=== PATIENT | male | born 1960 | race Caucasian/White ===

== ENCOUNTER 2021-02-10 15:41 | Inpatient (IN) | payer MEDICAID, SELFPAY ==
[~2021-02-10] VITALS: Ht 170.2 cm; Wt 56.7 kg
[2021-02-10 16:06] VITALS: BP 116/63
--- NOTE | 2021-02-10 16:30 | NUR ---
60 Y/O MALE BIB BY [facility]. C/O BILATERAL EDEMA WITH PAIN, REDNESS, AND WEEPING (11/06). PT STATES IT HAS BEEN GOING ON FOR 2 WEEKS. PT IS WEAK AND UNABLE TO AMBULATE, PT STATES HE NORMALLY HAS A LOW APETITE. PT STOOD/PIVOT FROM WHEELCHAIR TO BED ASSISTED BY RN AND [facility]. PT IS LAYING IN BED WITH THE RAILS UP X1, BED IN LOWEST SETTING. PT IS ACCOMPANIED BY [facility]. HX: HTN NKDA NON COMPLIANT WITH MEDS DUE TO INSURANCE ISSUES.
[2021-02-10] MEDS ORDERED: ALBUTEROL HFA MDI 90 MCG/ACTUATION 8 GM INH ONE (17:00)
--- NOTE | 2021-02-10 17:10 | NUR ---
LABS AND US AT BEDSIDE
--- NOTE | 2021-02-10 17:28 | NUR ---
XRAY BEDSIDE WITH PATIENT
--- NOTE | 2021-02-10 17:30 | NUR ---
RADIOLOGY AT BEDSIDE
[2021-02-10 17:32] LABS: BASOPHILS # (AUTO) 0.1 K/uL (0.00-0.22); BASOPHILS % (AUTO) 0.7 % (0.0-2.0); EOSINOPHILS % (AUTO) 0.2 % (0.0-4.0); HEMATOCRIT 26.4 % (36-52); HEMOGLOBIN 9.2 g/dL (12.0-18.0); LYMPHOCYTES # (AUTO) 1.6 K/uL (2.0-11.5); LYMPHOCYTES % (AUTO) 17.3 % (20.5-51.1); MEAN CORPUSCULAR HEMOGLOBIN 37 pg (27-31); MEAN CORPUSCULAR HGB CONC 35 g/dL (33-37); MEAN CORPUSCULAR VOLUME 106.7 fL (80-94); MONOCYTES % (AUTO) 10.7 % (1.7-9.3); NEUTROPHILS # (AUTO) 6.5 K/uL (1.8-7.7); NEUTROPHILS % (AUTO) 71.1 % (42.2-75.2); PLATELET COUNT (AUTO) 209 K/uL (140-450); RED BLOOD CELL COUNT(AUTO) 2.48 MIL/uL (4.20-6.10); RED CELL DISTRIBUTION WIDTH 18.3 % (11.6-13.7); WHITE BLOOD COUNT (AUTO) 9.1 K/uL (4.8-10.8)
[2021-02-10 17:41] LABS: ANION GAP 8.9 (8-16); CARBON DIOXIDE 30.3 mmol/L (21-32); CREATININE 0.5 mg/dL (0.6-1.3); POTASSIUM 5.2 mmol/L (3.5-5.1)
--- NOTE | 2021-02-10 17:55 | NUR ---
COLLECTED BONNIE COVID-19 SWAB AND WALKED TO LAB
--- NOTE | 2021-02-10 18:32 | NUR ---
PT ADMITTED UNDER DR. GARCIA. PT MED-SURG HOLD IN ED BED 11
--- NOTE | 2021-02-10 18:50 | NUR ---
BELONGINGS LIST AND MED REC COMPLETED FOR PATIENT ADMIT
--- NOTE | 2021-02-10 19:19 | NUR ---
Patient appears to be resting comfortably in bed. Vital Signs within normal limits. Respirations even and unlabored.
--- NOTE | 2021-02-10 19:19 | NUR ---
Pt report given to MAGALI. Transfer of care at this time.
--- NOTE | 2021-02-10 19:30 | NUR ---
AMBULATED PT TO RESTROOM. PT HAD A BM
--- NOTE | 2021-02-10 19:54 | NUR ---
CALLED DR. GARCIA ABOUT PRN PAIN MEDICATION. PT STATED 10/06 PAIN
[2021-02-10] MEDS: HYDROcodone/APAP 5/325 MG 1 TAB TAB PO PRN (21:07)
--- NOTE | 2021-02-10 21:16 | NUR ---
PT UNABLE TO URINATE AT THIS TIME. LEFT URINAL AT BEDSIDE
--- NOTE | 2021-02-10 21:21 | NUR ---
Pt report given to MILA. Transfer of care at this time.
--- NOTE | 2021-02-10 21:43 | NUR ---
Patient will be admitted to care of DR. GARCIA. Admited to MED SURG. Will go to room 106b. Belongings list completed. Report to
--- NOTE | 2021-02-10 22:05 | NUR ---
RECEIVED REPORT FROM ER NURSE.PT ARRIVED IN UNIT VIA GURNEY. PT AWAKE, ALERT AND ORIENTED. PT'S VS ARE STABLE, AFEBRILE, ON ROOM AIR WITH NO S/SX OF DISTRESS. PT WITH IV ON LEFT AC GAUGE 20.BLISTER ON BILATERAL LOWER EXTREMITY NOTED.PT REFUSED TO HAVE IT CLEANED AND WANTED IT TO BE LEFT OPEN TO AIR.PT ORIENTED WITH THE ROOM AND CALL LIGHT. BED IS ON LOW POSITION AND BREAKS ARE ON. ALL PRECAUTIONS IN PLACE.CALL LIGHT WITHIN REACH. WILL CONTINUE TO MONITOR.
[2021-02-10] MEDS ORDERED: CLINDAMYCIN 600 MG/4 ML VIAL ONE (23:29)
[2021-02-10] MEDS ORDERED: MORPHINE SULFATE 2 MG/ML SYR IVP PRN (23:50)
[2021-02-10] MEDS ORDERED: DOCUSATE SODIUM 100 MG GELCAP PO PRN (23:50)
[2021-02-10] MEDS ORDERED: NACL 0.9% 1,000 ML IV SCH (23:50)
[2021-02-10] MEDS ORDERED: ACETAMINOPHEN 325 MG TAB PO PRN (23:50)
[2021-02-10] MEDS ORDERED: LORazepam 2 MG/ML VIAL IM/IVP PRN (23:50)
[2021-02-10] MEDS ORDERED: ONDANSETRON 4 MG/2 ML VIAL IM/IVP PRN (23:50)
[2021-02-10] MEDS ORDERED: ZOLPIDEM 5 MG TAB PO PRN (23:50)
[2021-02-10] MEDS ORDERED: MAG SULF 2000 MG/WATER PREMIX 50 ML IV PRN (23:55)
[2021-02-10] MEDS ORDERED: POTASSIUM CHLORIDE 10 MEQ TABER PO PRN (23:55)
[2021-02-11] VITALS: BP 119/71
[2021-02-11] MEDS: CLINDAMYCIN 300 MG in DEXTROSE 5% 50 ML IV SCH ×2 (00:01→05:52)
--- NOTE | 2021-02-11 00:05 | NUR ---
ANTIBIOTICS GIVEN ORDERED. PT TOLERATED WELL.NO ACUTE DRUG REACTION NOTED. NO SX/ SX OF DISTRESS NOTED.CALL LIGHT WITHIN REACH. ALL PRECAUTIONS IN PLACE. WILL CONTINUE TO MONITOR
[2021-02-11 00:31] LABS: MAGNESIUM 2.4 mg/dL (1.8-2.4); PHOSPHORUS 4.1 mg/dL (2.5-4.9)
[2021-02-11 00:32] LABS: BILIRUBIN,DIRECT 2.4 mg/dL (0.0-0.3)
[2021-02-11 01:15] LABS: PROTHROMBIN TIME 9.4 secs (10.8-13.4)
[2021-02-11 02:11] LABS: APPEARANCE,URINE CLEAR (CLEAR); BILIRUBIN,URINE 1+ (NEGATIVE); BLOOD, URINE NEGATIVE (NEGATIVE); COLOR,URINE DARK YELLOW (YELLOW); LEUKOCYTE ESTERASE ,URINE NEGATIVE (NEGATIVE); NITRITE, URINE NEGATIVE (NEGATIVE); PH,URINE 6.5 (5.0-9.0); UGLUCOSE NEGATIVE (NEGATIVE)
[2021-02-11] MEDS: HYDROcodone/APAP 5/325 MG 1 TAB TAB PO PRN (02:11)
--- NOTE | 2021-02-11 02:15 | NUR ---
PT COMPLAINED OF PAIN ON HIS BILATERAL LOWER EXTREMITIES. PRN PAIN MEDICATION GIVEN.ALL PRECAUTIONS IN PLACE. PT TOLERATED WELL. WILL CONTINUE TO MONITOR.
[2021-02-11 02:38] LABS: BARBITURATE, URINE NEGATIVE ng/ml (NEG <=200); BENZODIAZEPINE, URINE NEGATIVE ng/mL (NEG <=200); CANNABINOID, URINE NEGATIVE ng/mL (NEG <=50); COCAINE, URINE NEGATIVE ng/mL (NEG <=300); OPIATE, URINE POSITIVE ng/mL (NEG <=2000); PHENCYCLIDINE SCREEN,URINE NEGATIVE ng/mL (NEG <=25)
[2021-02-11 04:00] VITALS: BP 116/58
[2021-02-11] MEDS ORDERED: CLINDAMYCIN 600 MG/4 ML VIAL ONE (05:28)
--- NOTE | 2021-02-11 06:00 | NUR ---
SCHEDULED ANTIBIOTICS GIVEN. PT TOLERATED WELL. ALL PRECAUTIONS IN PLACE. WILL CONTINUE TO MONITOR.
[2021-02-11 06:30] LABS: BASOPHILS # (AUTO) 0.1 K/uL (0.00-0.22); BASOPHILS % (AUTO) 0.7 % (0.0-2.0); EOSINOPHILS % (AUTO) 0.1 % (0.0-4.0); HEMATOCRIT 26.1 % (36-52); LYMPHOCYTES # (AUTO) 1.2 K/uL (2.0-11.5); LYMPHOCYTES % (AUTO) 11.4 % (20.5-51.1); MEAN CORPUSCULAR HEMOGLOBIN 37 pg (27-31); MEAN CORPUSCULAR HGB CONC 35 g/dL (33-37); MEAN CORPUSCULAR VOLUME 107.5 fL (80-94); MONOCYTES # (AUTO) 0.9 K/uL (0.8-1.0); MONOCYTES % (AUTO) 8.8 % (1.7-9.3); NEUTROPHILS # (AUTO) 8.4 K/uL (1.8-7.7); PLATELET COUNT (AUTO) 208 K/uL (140-450); RED BLOOD CELL COUNT(AUTO) 2.43 MIL/uL (4.20-6.10); RED CELL DISTRIBUTION WIDTH 17.9 % (11.6-13.7); WHITE BLOOD COUNT (AUTO) 10.6 K/uL (4.8-10.8)
[2021-02-11 06:46] LABS: ANION GAP 8.2 (8-16); CARBON DIOXIDE 30.4 mmol/L (21-32); CREATININE 0.6 mg/dL (0.6-1.3); POTASSIUM 4.6 mmol/L (3.5-5.1)
[2021-02-11 06:49] LABS: CHOL/HDL RATIO 3.1 (1-4.5)
[2021-02-11 07:00] LABS: MAGNESIUM 2.2 mg/dL (1.8-2.4); PHOSPHORUS 3.8 mg/dL (2.5-4.9)
--- NOTE | 2021-02-11 07:01 | NUR ---
PT STABLE.NO ACUTE EVENTS THROUGHOUT THE NIGHT.ALL NEEDS ATTENDED.NO OTHER COMPLAINS AT THIS TIME. CALL LIGHT WITHIN REACH. ALL SAFETY PRECAUTIONS IN PLACE.WILL CONTINUE TO MONITOR.WILL ENDORSE TO AM SHIFT NURSE.
--- NOTE | 2021-02-11 07:30 | NUR ---
RECEIVED REPORT FROM NIGHT NURSE FOR CONTINUITY OF CARE. PATIENT IS AWAKE, NO DISTRESS NOTED. BREATHING IS EVEN AND UNLABORED. DENIES PAIN. SHAREE PICC LINE INTACT. ON MEDSURG. RESTING IN BED. CALL LIGHT WITHIN REACH. PT IS STABLE.
--- NOTE | 2021-02-11 07:39 | NUR ---
PT ENDORSED TO AM SHIFT NURSE FOR CONTINUITY OF CARE. PT IS STABLE.
--- NOTE | 2021-02-11 08:33 | NUR ---
PATIENT HAS BEEN SCREENED AND CATEGORIZED HIGH NUTRITION RISK. PATIENT WILL BE SEEN WITHIN 1-2 DAYS OF ADMISSION. 02/11/21-02/12/21 CONSULT RECEIVED FOR WOUNDS AND PRESSURE INJURY LISANDRO GALINDO RD
[2021-02-11] MEDS ORDERED: FUROSEMIDE 40 MG/4 ML VIAL IVP ONE (09:00)
--- NOTE | 2021-02-11 09:00 | NUR ---
PT IS COMPLAINING OF HUNGER. EXPLAINED HE CAN EAT AFTER CT CHEST ANGIOGRAPHY. EXPLAINED TO FAMILY MEMBERS THE SITUATION AND ANSWERED ALL THEIR QUESTIONS.
--- NOTE | 2021-02-11 10:15 | NUR ---
PT IS COMPLAINING OF HUNGER AGAIN.. EXPLAINED HE CAN EAT AFTER CT CHEST ANGIOGRAPHY. EXPLAINED TO FAMILY MEMBERS THE SITUATION AND ANSWERED ALL THEIR QUESTIONS AGAIN.
--- NOTE | 2021-02-11 11:00 | NUR ---
PT WAS PICKED UP TO GET CT CHEST ANGIOGRAPHY. PT IS STABLE. CONSENTS SIGNED.
--- NOTE | 2021-02-11 11:30 | NUR ---
PT RETURNED FROM CT CHEST ANGIOGRAPHY. PT VS ARE WNL. PT IS STABLE. BROUGHT FOOD LOW SODIUM TO PT TO EAT.
--- NOTE | 2021-02-11 11:50 | NUR ---
WOUND CARE EVALUATION NOTE: WOUND ASSESSMENT DONE ON THIS 60 Y/O PT. AAX4, PT ADMITTED WITH BLE CELLULITIS. PER PT. UN-KNOW MEDICAL HX. BLE WITH ERYTHEMA, SWOLLEN JOINTS, +3 EDEMA, WEEPING SKIN WITH MULTIPLE BLISTERING SKIN AND MULTIPLE PARTIAL THICKNESS SKIN LOSS,SUPERFICIAL DEPTH. LEFT LOWER LEG LARGEST SUPERFICIAL WOUND FROM OPEN BLISTERING SKIN 4X5CM AND RIGHT LOWER LEG 3X2CM, WOUND BEDS ARE PINK AND MOIST, NO ODOR, KATHRYN WOUND SKIN ERYTHEMA AND INTACT BLISTERING SKIN WHICH INDICATED FURTHER DAMAGE, MAY BECOME OPEN WOUNDS IF EDEMA/SWELLING NOT IMPROVING. THICKENED NAILS X 10 TOES. BLE SENSITIVE TO TOUCH, NO PAIN PER PT. 0/10. POC DISCUSSED WITH PT. WOUND CARE INSTRUCTIONS EXPLAIN AND INSTRUCTS PT. TO ELEVATED BLE TO REDUCE EDEMA/SWELLING, PT. VERBALIZES UNDERSTANDING. PER PT. HE LIKES TO BE IN SITTING POSITION. POC DISCUSSED WITH PRIMARY RN.CONTINUE WOUND CARE TEACHING WITH PT. AND FAMILY RECOMMENDATIONS: -CLEANSE BLE WOUND WITH NS, PAT DRY, APPLY XEROFORM DRESSING COVER WITH ABD PAD AND WRAP WITH KERLIX ROLL 3X/WEEK DRESSING CHANGE ON MWF. -PLEASE ELEVATE BLE WITH 2-3 PILLOWS WHEN IN CHAIR / IN BED -ASSESS AND MONITOR SKIN CONDITION DURING POSITION CHANGE -OFFLOAD BILATERAL HEELS BY PLACING PILLOWS UNDER CALVES AT ALL TIMES, UNLESS OTHERWISE CONTRAINDICATED -KEEP SKIN CLEAN AND DRY AT ALL TIMES.
--- NOTE | 2021-02-11 12:00 | NUR ---
PT STATES HE IS LEAVING AND HAS THINGS TO DO. I EXPLAINED THE IMPORTANCE OF STAYING AND THAT MD NEEDS TO CLEAR HIM FIRST.. PT SAYS HE WILL LEAVE AGAINST MEDICAL ADVICE. PT IS STABLE.
--- NOTE | 2021-02-11 12:15 | NUR ---
PT IS WALKING OUT OF UNIT AND OUT OF HOSPITAL AGAINST MEDICAL ADVICE. CALLED AND EXPLAINED TO FAMILY ABOUT SITUATION. ANSWERED ALL THEIR QUESTIONS AND EXPLAINED THE IMPORTANCE OF PT STAYING. PT IS AMA. MD IS NOTIFIED. WILL FILL OUT AMA REPORT.
[2021-02-12 09:06] LABS: T4 (THYROXINE) 5.4 ug/dL (4.5-12.0)
[2021-02-13] MEDS ORDERED: NON ADHERENT DRESSING TP SCH (13:00)
== END 2021-02-11 12:15 | disposition left against medical advice (07) | DRG 383 ==
LOC: MED 15:41 → MTU 18:32
DX: L03.116 Cellulitis of left lower limb (principal); E43 Unspecified severe protein-calorie malnutrition; D68.59 Other primary thrombophilia; E87.1 Hypo-osmolality and hyponatremia; E86.0 Dehydration; D53.9 Nutritional anemia, unspecified; J44.9 Chronic obstructive pulmonary disease, unspecified; R74.01 Elevation of levels of liver transaminase levels; E87.5 Hyperkalemia; Z20.822 Contact with and (suspected) exposure to COVID-19; Z68.1 Body mass index [BMI] 19.9 or less, adult; Z53.29 Procedure and treatment not carried out because of patient's decision for other reasons
CPT/HCPCS: 36415; 71045; 71275; 80048; 80053; 80076; 80305; 81003; 83036; 83690; 83735; 83880; 84100; 84134; 84436; 84443; 85025; 85379; 85610; 85651; 85730; 86140; 87081; 93970; 94664; 99285; J1644; J2270; J3490; J7060; Q0092; Q9967

== ENCOUNTER 2021-02-21 19:04 | Inpatient (IN) | payer MEDICAID, SELFPAY ==
[~2021-02-21] VITALS: Ht 170.2 cm; Wt 52.6 kg
[2021-02-21 19:25] VITALS: BP 145/87
[2021-02-21 20:25] LABS: BASOPHILS # (AUTO) 0.1 K/uL (0.00-0.22); BASOPHILS % (AUTO) 0.6 % (0.0-2.0); EOSINOPHILS # (AUTO) 0.1 K/uL (0-0.4); EOSINOPHILS % (AUTO) 0.4 % (0.0-4.0); HEMATOCRIT 36.6 % (36-52); HEMOGLOBIN 12.8 g/dL (12.0-18.0); LYMPHOCYTES # (AUTO) 1.7 K/uL (2.0-11.5); LYMPHOCYTES % (AUTO) 11.4 % (20.5-51.1); MEAN CORPUSCULAR HEMOGLOBIN 35 pg (27-31); MEAN CORPUSCULAR HGB CONC 35 g/dL (33-37); MEAN CORPUSCULAR VOLUME 98.7 fL (80-94); MONOCYTES % (AUTO) 6.7 % (1.7-9.3); NEUTROPHILS # (AUTO) 12.4 K/uL (1.8-7.7); NEUTROPHILS % (AUTO) 80.9 % (42.2-75.2); PLATELET COUNT (AUTO) 271 K/uL (140-450); RED CELL DISTRIBUTION WIDTH 15.7 % (11.6-13.7); WHITE BLOOD COUNT (AUTO) 15.3 K/uL (4.8-10.8)
[2021-02-21 20:47] LABS: ALBUMIN 2.4 g/dL (3.4-5.0); ANION GAP 12.2 (8-16); CARBON DIOXIDE 24.3 mmol/L (21-32); CREATININE 0.6 mg/dL (0.6-1.3); POTASSIUM 5.5 mmol/L (3.5-5.1); TOTAL BILIRUBIN 1.9 mg/dL (0.0-1.0)
[2021-02-21] MEDS ORDERED: VANCOMYCIN 1,000 MG in DEXTROSE 5% 250 ML IV ONE (21:10)
[2021-02-21] MEDS ORDERED: PIPERACILLIN/TAZOBACTAM 4.5 GM in DEXTROSE 5% 100 ML IV ONE (21:10)
[2021-02-21] MEDS ORDERED: HYDROcodone/APAP 7.5/325 MG 1 TAB PO PRN ×2 (21:15→21:30)
[2021-02-21] MEDS ORDERED: ONDANSETRON 4 MG/2 ML VIAL IM/IVP PRN ×3 (21:15→22:05)
[2021-02-21] MEDS ORDERED: DOCUSATE SODIUM 100 MG GELCAP PO PRN ×3 (21:15→22:05)
[2021-02-21] MEDS ORDERED: ACETAMINOPHEN 325 MG TAB PO PRN ×2 (21:15→21:30)
[2021-02-21] MEDS ORDERED: NACL 0.9% 1,000 ML IV SCH ×4 (21:15→22:05)
[2021-02-21] MEDS ORDERED: guaiFENesin DM 200/20 MG-10 ML 10 ML UDC PO PRN ×2 (21:15→21:30)
[2021-02-21] MEDS ORDERED: ZOLPIDEM 5 MG TAB PO PRN ×2 (21:15→21:30)
[2021-02-21] MEDS ORDERED: POTASSIUM CHLORIDE 10 MEQ TABER PO PRN (21:15)
[2021-02-21] MEDS ORDERED: VANCOMYCIN 1,000 MG VIAL ONE (21:40)
[2021-02-21] MEDS ORDERED: PIPERACILLIN/TAZOBACTAM 4.5 GM VIAL IV ONE (21:42)
[2021-02-21] MEDS ORDERED: SODIUM CHLORIDE 1 GM TAB PO SCH (22:05)
[2021-02-21 22:34] LABS: PROTHROMBIN TIME 9.1 secs (10.8-13.4)
[2021-02-21 22:43] LABS: CHOL/HDL RATIO 2.5 (1-4.5); FREE T4 (FREE THYROXINE) 1.22 ng/dL (0.76-1.46); PHOSPHORUS 3.6 mg/dL (2.5-4.9); THYROID STIMULATING HORMONE 2.5 uIU/mL (0.34-3.74)
[2021-02-21] MEDS: NACL 0.9% 1,000 ML IV SCH (22:50)
[2021-02-22] VITALS: BP 168/86
[2021-02-22 04:00] VITALS: BP 178/88
[2021-02-22] MEDS ORDERED: PIPERACILLIN/TAZOBACTAM 3.375 GM VIAL IV ONE (05:23)
[2021-02-22] MEDS: PIPERACILLIN/TAZOBACTAM 3.375 GM in DEXTROSE 5% 50 ML IV SCH ×5 (05:46→18:06)
[2021-02-22] MEDS: NACL 0.9% 1,000 ML IV SCH ×3 (05:46→22:50)
[2021-02-22 06:40] LABS: BASOPHILS # (AUTO) 0.1 K/uL (0.00-0.22); BASOPHILS % (AUTO) 0.4 % (0.0-2.0); EOSINOPHILS % (AUTO) 0.1 % (0.0-4.0); HEMATOCRIT 37.3 % (36-52); LYMPHOCYTES # (AUTO) 1.2 K/uL (2.0-11.5); MEAN CORPUSCULAR HEMOGLOBIN 35 pg (27-31); MEAN CORPUSCULAR HGB CONC 35 g/dL (33-37); MEAN CORPUSCULAR VOLUME 100.3 fL (80-94); MONOCYTES # (AUTO) 1.3 K/uL (0.8-1.0); MONOCYTES % (AUTO) 7.5 % (1.7-9.3); NEUTROPHILS # (AUTO) 15.1 K/uL (1.8-7.7); PLATELET COUNT (AUTO) 229 K/uL (140-450); RED BLOOD CELL COUNT(AUTO) 3.72 MIL/uL (4.20-6.10); RED CELL DISTRIBUTION WIDTH 15.7 % (11.6-13.7); WHITE BLOOD COUNT (AUTO) 17.7 K/uL (4.8-10.8)
[2021-02-22 07:11] LABS: ANION GAP 13.6 (8-16); CARBON DIOXIDE 24.1 mmol/L (21-32); CREATININE 0.7 mg/dL (0.6-1.3)
[2021-02-22 07:20] LABS: POTASSIUM 6.7 mmol/L (3.5-5.1)
[2021-02-22 08:00] VITALS: BP 127/61
[2021-02-22] MEDS: PANTOPRAZOLE 40 MG TABEC PO SCH (08:29)
[2021-02-22] MEDS ORDERED: PANTOPRAZOLE 40 MG TABEC PO SCH (09:00)
[2021-02-22] MEDS ORDERED: CALCIUM GLUCONATE 10% 1,000 MG in NACL 0.9% 50 ML IV SCH (10:00)
[2021-02-22 12:00] VITALS: BP 167/82
[2021-02-22] MEDS: CLINDAMYCIN 600 MG in DEXTROSE 5% 50 ML IV SCH ×2 (12:36→18:06)
[2021-02-22] MEDS: SODIUM ZIRCONIUM CYCLOSILICATE 10 GM POWD.PACK PO SCH (15:39)
[2021-02-22 16:00] VITALS: BP 137/75
[2021-02-22 17:00] LABS: ANION GAP 8.3 (8-16); CARBON DIOXIDE 26.1 mmol/L (21-32); CREATININE 0.5 mg/dL (0.6-1.3); POTASSIUM 4.4 mmol/L (3.5-5.1)
[2021-02-22 20:00] VITALS: BP 141/70
[2021-02-23] VITALS: BP 122/74
[2021-02-23 04:00] VITALS: BP 139/74
[2021-02-23] MEDS: PIPERACILLIN/TAZOBACTAM 3.375 GM in DEXTROSE 5% 50 ML IV SCH ×5 (06:00→18:00)
[2021-02-23] MEDS: NACL 0.9% 1,000 ML IV SCH ×3 (06:50→22:50)
[2021-02-23 07:07] LABS: T3 UPTAKE 30 % (24-39)
[2021-02-23 08:00] VITALS: BP 125/80
[2021-02-23] MEDS: PANTOPRAZOLE 40 MG TABEC PO SCH (09:00)
[2021-02-23] MEDS: SODIUM ZIRCONIUM CYCLOSILICATE 10 GM POWD.PACK PO SCH (15:39)
[2021-02-23] MEDS ORDERED: LORazepam 2 MG/ML VIAL IVP PRN (15:55)
[2021-02-23 20:00] VITALS: BP 102/59
[2021-02-23] MEDS: LORazepam 1 MG TAB PO SCH (22:16)
[2021-02-24] VITALS: BP 139/77
[2021-02-24] MEDS: LORazepam 1 MG TAB PO SCH ×3 (05:21→20:45)
[2021-02-24] MEDS: PIPERACILLIN/TAZOBACTAM 3.375 GM in DEXTROSE 5% 50 ML IV SCH ×6 (05:37→18:12)
[2021-02-24] MEDS: NACL 0.9% 1,000 ML IV SCH ×2 (06:50→17:49)
[2021-02-24 08:00] VITALS: BP 144/77
[2021-02-24] MEDS: FOLIC ACID 1 MG TAB PO SCH (08:54)
[2021-02-24] MEDS: MULTIVITAMIN 1 TAB PO SCH (08:54)
[2021-02-24] MEDS: PANTOPRAZOLE 40 MG TABEC PO SCH (08:54)
[2021-02-24] MEDS: THIAMINE 100 MG TAB PO SCH (08:54)
[2021-02-24] MEDS: SODIUM CHLORIDE 1 GM TAB PO SCH ×2 (09:00→20:45)
[2021-02-24] MEDS: FUROSEMIDE 20 MG TAB PO SCH (09:00)
[2021-02-24 12:00] VITALS: BP 136/73
[2021-02-24] MEDS ORDERED: PANT40EC56 PO (12:56)
[2021-02-24] MEDS ORDERED: FOLI1TAB90 PO (12:56)
[2021-02-24] MEDS ORDERED: THIA-34 PO (12:56)
[2021-02-24] MEDS ORDERED: MULT-405 PO (12:56)
[2021-02-24] MEDS ORDERED: FURO20TA8 PO (12:56)
[2021-02-24 14:44] LABS: BASOPHILS # (AUTO) 0.2 K/uL (0.00-0.22); BASOPHILS % (AUTO) 1.2 % (0.0-2.0); EOSINOPHILS % (AUTO) 0.1 % (0.0-4.0); HEMATOCRIT 33.7 % (36-52); HEMOGLOBIN 11.6 g/dL (12.0-18.0); LYMPHOCYTES # (AUTO) 1.1 K/uL (2.0-11.5); LYMPHOCYTES % (AUTO) 6.9 % (20.5-51.1); MEAN CORPUSCULAR HEMOGLOBIN 35 pg (27-31); MEAN CORPUSCULAR HGB CONC 35 g/dL (33-37); MEAN CORPUSCULAR VOLUME 100.6 fL (80-94); MONOCYTES # (AUTO) 1.5 K/uL (0.8-1.0); MONOCYTES % (AUTO) 9.5 % (1.7-9.3); NEUTROPHILS % (AUTO) 82.3 % (42.2-75.2); PLATELET COUNT (AUTO) 266 K/uL (140-450); RED BLOOD CELL COUNT(AUTO) 3.35 MIL/uL (4.20-6.10); RED CELL DISTRIBUTION WIDTH 15.2 % (11.6-13.7); WHITE BLOOD COUNT (AUTO) 15.8 K/uL (4.8-10.8)
[2021-02-24 15:12] LABS: ANION GAP 6.5 (8-16); CARBON DIOXIDE 27.9 mmol/L (21-32); CREATININE 0.5 mg/dL (0.6-1.3); POTASSIUM 4.4 mmol/L (3.5-5.1)
[2021-02-24] MEDS: SODIUM ZIRCONIUM CYCLOSILICATE 10 GM POWD.PACK PO SCH (15:39)
[2021-02-24 16:00] VITALS: BP 95/56
[2021-02-24 20:00] VITALS: BP 91/51
[2021-02-25] VITALS: BP 137/33
[2021-02-25] MEDS: PIPERACILLIN/TAZOBACTAM 3.375 GM in DEXTROSE 5% 50 ML IV SCH ×4 (00:49→18:21)
[2021-02-25] MEDS: NACL 0.9% 1,000 ML IV SCH ×3 (01:00→10:25)
[2021-02-25 04:00] VITALS: BP 146/54
[2021-02-25] MEDS: LORazepam 1 MG TAB PO SCH ×3 (05:00→21:00)
[2021-02-25 06:21] LABS: BASOPHILS # (AUTO) 0.2 K/uL (0.00-0.22); BASOPHILS % (AUTO) 1.2 % (0.0-2.0); EOSINOPHILS % (AUTO) 0.2 % (0.0-4.0); HEMATOCRIT 34.2 % (36-52); HEMOGLOBIN 11.6 g/dL (12.0-18.0); LYMPHOCYTES # (AUTO) 1.3 K/uL (2.0-11.5); LYMPHOCYTES % (AUTO) 9.8 % (20.5-51.1); MEAN CORPUSCULAR HEMOGLOBIN 34 pg (27-31); MEAN CORPUSCULAR HGB CONC 34 g/dL (33-37); MEAN CORPUSCULAR VOLUME 100.9 fL (80-94); MONOCYTES # (AUTO) 1.3 K/uL (0.8-1.0); MONOCYTES % (AUTO) 9.7 % (1.7-9.3); NEUTROPHILS # (AUTO) 10.2 K/uL (1.8-7.7); NEUTROPHILS % (AUTO) 79.1 % (42.2-75.2); PLATELET COUNT (AUTO) 287 K/uL (140-450); RED BLOOD CELL COUNT(AUTO) 3.39 MIL/uL (4.20-6.10); RED CELL DISTRIBUTION WIDTH 15.2 % (11.6-13.7); WHITE BLOOD COUNT (AUTO) 12.9 K/uL (4.8-10.8)
[2021-02-25 06:22] LABS: CARBON DIOXIDE 28.6 mmol/L (21-32); CREATININE 0.5 mg/dL (0.6-1.3); POTASSIUM 3.6 mmol/L (3.5-5.1)
[2021-02-25 08:00] VITALS: BP 145/78
[2021-02-25] MEDS: FOLIC ACID 1 MG TAB PO SCH (08:03)
[2021-02-25] MEDS: FUROSEMIDE 20 MG TAB PO SCH (08:04)
[2021-02-25] MEDS: PANTOPRAZOLE 40 MG TABEC PO SCH (08:04)
[2021-02-25] MEDS ORDERED: BUPIVACAINE-MPF/EPI 0.5% 30 ML VIAL INJ ONE (08:25)
[2021-02-25] MEDS ORDERED: LIDOCAINE 1% 500 MG/50 ML VIAL ONE (08:25)
[2021-02-25] MEDS: SODIUM CHLORIDE 1 GM TAB PO SCH ×2 (08:56→21:00)
[2021-02-25] MEDS: MULTIVITAMIN 1 TAB PO SCH (08:57)
[2021-02-25] MEDS: THIAMINE 100 MG TAB PO SCH (08:57)
[2021-02-25] MEDS ORDERED: PROPOFOL 200 MG/20 ML VIAL IV ONE (19:10)
[2021-02-25 20:00] VITALS: BP 139/74
[2021-02-25] MEDS ORDERED: ONDANSETRON 4 MG/2 ML VIAL IVP PRN (20:10)
[2021-02-25] MEDS ORDERED: HYDROmorphone 1 MG/ML AMP IVP PRN (20:10)
[2021-02-26] MEDS: HYDROcodone/APAP 7.5/325 MG 1 TAB PO PRN ×2 (01:28→15:09)
[2021-02-26] MEDS: GAUZE TP SCH ×2 (01:29→12:59)
[2021-02-26] MEDS: PIPERACILLIN/TAZOBACTAM 3.375 GM in DEXTROSE 5% 50 ML IV SCH ×4 (01:29→18:42)
[2021-02-26 04:33] VITALS: BP 132/75
[2021-02-26] MEDS: LORazepam 1 MG TAB PO SCH ×3 (04:48→21:18)
[2021-02-26] MEDS: NICOTINE TRANSD SYS 14 MG/24 HR PATCH TD SCH (09:36)
[2021-02-26] MEDS: FUROSEMIDE 20 MG TAB PO SCH (09:36)
[2021-02-26] MEDS: SODIUM CHLORIDE 1 GM TAB PO SCH ×2 (09:36→21:18)
[2021-02-26] MEDS: MULTIVITAMIN 1 TAB PO SCH (09:36)
[2021-02-26] MEDS: THIAMINE 100 MG TAB PO SCH (09:36)
[2021-02-26] MEDS: FOLIC ACID 1 MG TAB PO SCH (09:37)
[2021-02-26] MEDS: PANTOPRAZOLE 40 MG TABEC PO SCH (09:37)
[2021-02-26] MEDS: NACL 0.9% 1,000 ML IV SCH ×2 (09:38→21:00)
[2021-02-26 16:00] VITALS: BP 143/74
[2021-02-26 16:23] LABS: BASOPHILS # (AUTO) 0.1 K/uL (0.00-0.22); BASOPHILS % (AUTO) 0.4 % (0.0-2.0); EOSINOPHILS % (AUTO) 0.1 % (0.0-4.0); HEMATOCRIT 36.2 % (36-52); HEMOGLOBIN 12.3 g/dL (12.0-18.0); LYMPHOCYTES # (AUTO) 1.1 K/uL (2.0-11.5); LYMPHOCYTES % (AUTO) 8.9 % (20.5-51.1); MEAN CORPUSCULAR HEMOGLOBIN 34 pg (27-31); MEAN CORPUSCULAR HGB CONC 34 g/dL (33-37); MEAN CORPUSCULAR VOLUME 99.3 fL (80-94); MONOCYTES # (AUTO) 1.5 K/uL (0.8-1.0); MONOCYTES % (AUTO) 11.6 % (1.7-9.3); NEUTROPHILS # (AUTO) 10.2 K/uL (1.8-7.7); PLATELET COUNT (AUTO) 370 K/uL (140-450); RED BLOOD CELL COUNT(AUTO) 3.65 MIL/uL (4.20-6.10); RED CELL DISTRIBUTION WIDTH 15.7 % (11.6-13.7); WHITE BLOOD COUNT (AUTO) 12.9 K/uL (4.8-10.8)
[2021-02-26 16:40] LABS: ANION GAP 13.7 (8-16); CARBON DIOXIDE 25.5 mmol/L (21-32); CREATININE 0.5 mg/dL (0.6-1.3); POTASSIUM 4.2 mmol/L (3.5-5.1)
[2021-02-27] VITALS: BP 132/79
[2021-02-27] MEDS: GAUZE TP SCH ×2 (01:00→13:29)
[2021-02-27] MEDS: LORazepam 1 MG TAB PO SCH ×3 (04:56→21:27)
[2021-02-27] MEDS: NACL 0.9% 1,000 ML IV SCH (04:57)
[2021-02-27] MEDS: PIPERACILLIN/TAZOBACTAM 3.375 GM in DEXTROSE 5% 50 ML IV SCH ×5 (04:57→18:19)
[2021-02-27 08:00] VITALS: BP 153/79
[2021-02-27] MEDS: THIAMINE 100 MG TAB PO SCH (09:51)
[2021-02-27] MEDS: PANTOPRAZOLE 40 MG TABEC PO SCH (09:51)
[2021-02-27] MEDS: SODIUM CHLORIDE 1 GM TAB PO SCH ×2 (09:51→21:27)
[2021-02-27] MEDS: FUROSEMIDE 20 MG TAB PO SCH (09:51)
[2021-02-27] MEDS: MULTIVITAMIN 1 TAB PO SCH (09:51)
[2021-02-27] MEDS: FOLIC ACID 1 MG TAB PO SCH (09:51)
[2021-02-27] MEDS: NICOTINE TRANSD SYS 14 MG/24 HR PATCH TD SCH (09:52)
[2021-02-27 16:00] VITALS: BP 152/81
[2021-02-28] VITALS: BP 143/79
[2021-02-28] MEDS: GAUZE TP SCH ×2 (01:00→14:07)
[2021-02-28] MEDS: PIPERACILLIN/TAZOBACTAM 3.375 GM in DEXTROSE 5% 50 ML IV SCH ×5 (05:32→17:58)
[2021-02-28] MEDS: LORazepam 1 MG TAB PO SCH ×3 (05:32→21:10)
[2021-02-28] MEDS: HYDROcodone/APAP 7.5/325 MG 1 TAB PO PRN ×2 (05:42→15:09)
[2021-02-28 08:00] VITALS: BP 135/79
[2021-02-28] MEDS: SODIUM CHLORIDE 1 GM TAB PO SCH ×2 (09:17→21:10)
[2021-02-28] MEDS: NICOTINE TRANSD SYS 14 MG/24 HR PATCH TD SCH (09:17)
[2021-02-28] MEDS: PANTOPRAZOLE 40 MG TABEC PO SCH (09:17)
[2021-02-28] MEDS: FUROSEMIDE 20 MG TAB PO SCH (09:18)
[2021-02-28] MEDS: MULTIVITAMIN 1 TAB PO SCH (09:18)
[2021-02-28] MEDS: THIAMINE 100 MG TAB PO SCH (09:18)
[2021-02-28] MEDS: FOLIC ACID 1 MG TAB PO SCH (09:18)
[2021-02-28 16:00] VITALS: BP 120/63
[2021-02-28 20:00] VITALS: BP 129/72
[2021-03-01] MEDS: PIPERACILLIN/TAZOBACTAM 3.375 GM in DEXTROSE 5% 50 ML IV SCH ×4 (00:08→17:04)
[2021-03-01] MEDS: GAUZE TP SCH ×2 (01:00→13:07)
[2021-03-01 04:00] VITALS: BP 143/80
[2021-03-01] MEDS: LORazepam 1 MG TAB PO SCH ×3 (05:18→20:15)
[2021-03-01 06:31] LABS: CARBON DIOXIDE 31.2 mmol/L (21-32); CREATININE 0.5 mg/dL (0.6-1.3); POTASSIUM 3.2 mmol/L (3.5-5.1)
[2021-03-01] MEDS: FOLIC ACID 1 MG TAB PO SCH (09:00)
[2021-03-01] MEDS: PANTOPRAZOLE 40 MG TABEC PO SCH (09:01)
[2021-03-01] MEDS: FUROSEMIDE 20 MG TAB PO SCH (09:01)
[2021-03-01] MEDS: SODIUM CHLORIDE 1 GM TAB PO SCH ×2 (09:02→20:15)
[2021-03-01] MEDS: THIAMINE 100 MG TAB PO SCH (09:05)
[2021-03-01] MEDS: MULTIVITAMIN 1 TAB PO SCH (09:06)
[2021-03-01] MEDS: NICOTINE TRANSD SYS 14 MG/24 HR PATCH TD SCH (09:08)
[2021-03-01] MEDS ORDERED: AMOX-1230 PO (10:47)
[2021-03-01] MEDS ORDERED: POTASSIUM CHLORIDE 10 MEQ TABER PO SCH (12:00)
[2021-03-01 16:00] VITALS: BP 143/80
[2021-03-01] MEDS: THERAHONEY GEL 42.5 GM TP SCH (16:47)
[2021-03-02] VITALS: BP_SYST 143; BP_SYST 156; BP_DIAS 80; BP_DIAS 90
[2021-03-02] MEDS: PIPERACILLIN/TAZOBACTAM 3.375 GM in DEXTROSE 5% 50 ML IV SCH ×4 (00:22→18:09)
[2021-03-02] MEDS: GAUZE TP SCH ×2 (01:15→13:00)
[2021-03-02] MEDS: LORazepam 1 MG TAB PO SCH ×3 (05:11→21:17)
[2021-03-02] MEDS: NICOTINE TRANSD SYS 14 MG/24 HR PATCH TD SCH ×2 (09:00→10:02)
[2021-03-02] MEDS: PANTOPRAZOLE 40 MG TABEC PO SCH (10:03)
[2021-03-02] MEDS: FOLIC ACID 1 MG TAB PO SCH (10:03)
[2021-03-02] MEDS: THIAMINE 100 MG TAB PO SCH (10:03)
[2021-03-02] MEDS: ACETAMINOPHEN 325 MG TAB PO PRN (10:03)
[2021-03-02] MEDS: SODIUM CHLORIDE 1 GM TAB PO SCH ×2 (10:03→21:17)
[2021-03-02] MEDS: FUROSEMIDE 20 MG TAB PO SCH (10:04)
[2021-03-02] MEDS: MULTIVITAMIN 1 TAB PO SCH (10:04)
[2021-03-02 12:00] VITALS: BP 142/84
[2021-03-02] MEDS: THERAHONEY GEL 42.5 GM TP SCH (13:00)
[2021-03-02 16:33] LABS: BASOPHILS # (AUTO) 0.1 K/uL (0.00-0.22); EOSINOPHILS # (AUTO) 0.2 K/uL (0-0.4); EOSINOPHILS % (AUTO) 1.9 % (0.0-4.0); HEMATOCRIT 28.5 % (36-52); HEMOGLOBIN 9.7 g/dL (12.0-18.0); LYMPHOCYTES # (AUTO) 1.1 K/uL (2.0-11.5); LYMPHOCYTES % (AUTO) 12.8 % (20.5-51.1); MEAN CORPUSCULAR HEMOGLOBIN 34 pg (27-31); MEAN CORPUSCULAR HGB CONC 34 g/dL (33-37); MEAN CORPUSCULAR VOLUME 99.5 fL (80-94); MONOCYTES % (AUTO) 11.3 % (1.7-9.3); NEUTROPHILS # (AUTO) 6.4 K/uL (1.8-7.7); PLATELET COUNT (AUTO) 289 K/uL (140-450); RED BLOOD CELL COUNT(AUTO) 2.86 MIL/uL (4.20-6.10); RED CELL DISTRIBUTION WIDTH 15.8 % (11.6-13.7); WHITE BLOOD COUNT (AUTO) 8.8 K/uL (4.8-10.8)
[2021-03-02 16:48] LABS: ANION GAP 7.9 (8-16); CARBON DIOXIDE 30.5 mmol/L (21-32); CREATININE 0.5 mg/dL (0.6-1.3); POTASSIUM 3.4 mmol/L (3.5-5.1)
[2021-03-02 20:00] VITALS: BP 156/90
[2021-03-03] MEDS: GAUZE TP SCH ×2 (01:00→12:21)
[2021-03-03] MEDS: PIPERACILLIN/TAZOBACTAM 3.375 GM in DEXTROSE 5% 50 ML IV SCH ×4 (01:14→18:45)
[2021-03-03 04:00] VITALS: BP 151/80
[2021-03-03] MEDS: LORazepam 1 MG TAB PO SCH ×3 (05:35→22:03)
[2021-03-03] MEDS ORDERED: POTASSIUM CHLORIDE 10 MEQ TABER PO ONE (08:30)
[2021-03-03] MEDS: NICOTINE TRANSD SYS 14 MG/24 HR PATCH TD SCH (08:54)
[2021-03-03] MEDS: MULTIVITAMIN 1 TAB PO SCH (08:55)
[2021-03-03] MEDS: FUROSEMIDE 20 MG TAB PO SCH (08:55)
[2021-03-03] MEDS: FOLIC ACID 1 MG TAB PO SCH (08:55)
[2021-03-03] MEDS: THIAMINE 100 MG TAB PO SCH (08:55)
[2021-03-03] MEDS: PANTOPRAZOLE 40 MG TABEC PO SCH (08:55)
[2021-03-03] MEDS: SODIUM CHLORIDE 1 GM TAB PO SCH ×2 (08:55→22:03)
[2021-03-03 09:24] LABS: BASOPHILS # (AUTO) 0.1 K/uL (0.00-0.22); BASOPHILS % (AUTO) 0.9 % (0.0-2.0); EOSINOPHILS # (AUTO) 0.1 K/uL (0-0.4); EOSINOPHILS % (AUTO) 1.2 % (0.0-4.0); HEMOGLOBIN 12.6 g/dL (12.0-18.0); LYMPHOCYTES # (AUTO) 1.2 K/uL (2.0-11.5); LYMPHOCYTES % (AUTO) 11.6 % (20.5-51.1); MEAN CORPUSCULAR HEMOGLOBIN 34 pg (27-31); MEAN CORPUSCULAR HGB CONC 33 g/dL (33-37); MEAN CORPUSCULAR VOLUME 100.6 fL (80-94); MONOCYTES # (AUTO) 0.8 K/uL (0.8-1.0); MONOCYTES % (AUTO) 8.2 % (1.7-9.3); NEUTROPHILS % (AUTO) 78.1 % (42.2-75.2); PLATELET COUNT (AUTO) 321 K/uL (140-450); RED BLOOD CELL COUNT(AUTO) 3.77 MIL/uL (4.20-6.10); RED CELL DISTRIBUTION WIDTH 16.1 % (11.6-13.7); WHITE BLOOD COUNT (AUTO) 10.2 K/uL (4.8-10.8)
[2021-03-03 09:50] LABS: ANION GAP 10.6 (8-16); CARBON DIOXIDE 28.5 mmol/L (21-32); CREATININE 0.3 mg/dL (0.6-1.3); POTASSIUM 4.1 mmol/L (3.5-5.1)
[2021-03-03] MEDS: MORPHINE SULFATE 2 MG/ML SYR IVP PRN (11:14)
[2021-03-03 12:00] VITALS: BP 138/82
[2021-03-03] MEDS: THERAHONEY GEL 42.5 GM TP SCH (12:21)
[2021-03-03 20:00] VITALS: BP 137/80
[2021-03-04] MEDS ORDERED: METOCLOPRAMIDE 10 MG/2 ML INJ VIAL IVP PRN (00:10)
[2021-03-04] MEDS: GAUZE TP SCH ×2 (01:00→12:04)
[2021-03-04 04:00] VITALS: BP 153/76
[2021-03-04] MEDS: METOCLOPRAMIDE 10 MG/2 ML INJ VIAL IVP SCH ×3 (05:00→22:00)
[2021-03-04] MEDS: LORazepam 1 MG TAB PO SCH ×4 (05:00→22:02)
[2021-03-04] MEDS: PIPERACILLIN/TAZOBACTAM 3.375 GM in DEXTROSE 5% 50 ML IV SCH ×5 (06:00→18:12)
[2021-03-04 08:00] VITALS: BP 130/71
[2021-03-04] MEDS: SODIUM CHLORIDE 1 GM TAB PO SCH (08:59)
[2021-03-04] MEDS: FOLIC ACID 1 MG TAB PO SCH (08:59)
[2021-03-04] MEDS: FUROSEMIDE 20 MG TAB PO SCH (08:59)
[2021-03-04] MEDS: PANTOPRAZOLE 40 MG TABEC PO SCH (08:59)
[2021-03-04] MEDS: THIAMINE 100 MG TAB PO SCH (08:59)
[2021-03-04] MEDS: MULTIVITAMIN 1 TAB PO SCH (08:59)
[2021-03-04] MEDS: NICOTINE TRANSD SYS 14 MG/24 HR PATCH TD SCH ×2 (09:00→09:16)
[2021-03-04] MEDS: THERAHONEY GEL 42.5 GM TP SCH (12:04)
[2021-03-04 16:00] VITALS: BP 123/65
[2021-03-04 16:02] LABS: BASOPHILS # (AUTO) 0.1 K/uL (0.00-0.22); BASOPHILS % (AUTO) 0.7 % (0.0-2.0); EOSINOPHILS # (AUTO) 0.1 K/uL (0-0.4); EOSINOPHILS % (AUTO) 1.3 % (0.0-4.0); HEMATOCRIT 35.8 % (36-52); HEMOGLOBIN 11.9 g/dL (12.0-18.0); LYMPHOCYTES % (AUTO) 10.6 % (20.5-51.1); MEAN CORPUSCULAR HEMOGLOBIN 33 pg (27-31); MEAN CORPUSCULAR HGB CONC 33 g/dL (33-37); MEAN CORPUSCULAR VOLUME 100.1 fL (80-94); MONOCYTES # (AUTO) 0.7 K/uL (0.8-1.0); NEUTROPHILS # (AUTO) 7.3 K/uL (1.8-7.7); NEUTROPHILS % (AUTO) 79.4 % (42.2-75.2); PLATELET COUNT (AUTO) 385 K/uL (140-450); RED BLOOD CELL COUNT(AUTO) 3.57 MIL/uL (4.20-6.10); RED CELL DISTRIBUTION WIDTH 16.6 % (11.6-13.7); WHITE BLOOD COUNT (AUTO) 9.2 K/uL (4.8-10.8)
[2021-03-04 16:06] LABS: ANION GAP 11.6 (8-16); CARBON DIOXIDE 29.5 mmol/L (21-32); CREATININE 0.6 mg/dL (0.6-1.3); POTASSIUM 4.1 mmol/L (3.5-5.1)
[2021-03-05] MEDS: PIPERACILLIN/TAZOBACTAM 3.375 GM in DEXTROSE 5% 50 ML IV SCH ×4 (00:38→17:22)
[2021-03-05] MEDS: GAUZE TP SCH ×2 (01:30→13:27)
[2021-03-05 04:00] VITALS: BP 152/81
[2021-03-05] MEDS: LORazepam 1 MG TAB PO SCH ×3 (05:37→21:00)
[2021-03-05] MEDS: METOCLOPRAMIDE 10 MG/2 ML INJ VIAL IVP SCH ×3 (05:56→21:00)
[2021-03-05 06:44] LABS: BASOPHILS # (AUTO) 0.1 K/uL (0.00-0.22); EOSINOPHILS # (AUTO) 0.1 K/uL (0-0.4); EOSINOPHILS % (AUTO) 1.3 % (0.0-4.0); HEMOGLOBIN 11.9 g/dL (12.0-18.0); LYMPHOCYTES # (AUTO) 1.1 K/uL (2.0-11.5); LYMPHOCYTES % (AUTO) 12.7 % (20.5-51.1); MEAN CORPUSCULAR HEMOGLOBIN 34 pg (27-31); MEAN CORPUSCULAR HGB CONC 34 g/dL (33-37); MEAN CORPUSCULAR VOLUME 98.8 fL (80-94); MONOCYTES # (AUTO) 0.6 K/uL (0.8-1.0); MONOCYTES % (AUTO) 6.9 % (1.7-9.3); NEUTROPHILS # (AUTO) 6.9 K/uL (1.8-7.7); NEUTROPHILS % (AUTO) 78.1 % (42.2-75.2); PLATELET COUNT (AUTO) 388 K/uL (140-450); RED BLOOD CELL COUNT(AUTO) 3.55 MIL/uL (4.20-6.10); WHITE BLOOD COUNT (AUTO) 8.8 K/uL (4.8-10.8)
[2021-03-05 07:02] LABS: PHOSPHORUS 3.7 mg/dL (2.5-4.9)
[2021-03-05 07:11] LABS: ANION GAP 10.3 (8-16); CARBON DIOXIDE 29.8 mmol/L (21-32); CREATININE 0.6 mg/dL (0.6-1.3); POTASSIUM 4.1 mmol/L (3.5-5.1)
[2021-03-05] MEDS: NICOTINE TRANSD SYS 14 MG/24 HR PATCH TD SCH ×2 (09:03→09:14)
[2021-03-05] MEDS: MULTIVITAMIN 1 TAB PO SCH (09:04)
[2021-03-05] MEDS: FOLIC ACID 1 MG TAB PO SCH (09:04)
[2021-03-05] MEDS: SODIUM CHLORIDE 1 GM TAB PO SCH (09:04)
[2021-03-05] MEDS: THIAMINE 100 MG TAB PO SCH (09:04)
[2021-03-05] MEDS: FUROSEMIDE 20 MG TAB PO SCH (09:05)
[2021-03-05] MEDS: PANTOPRAZOLE 40 MG TABEC PO SCH (09:05)
[2021-03-05] MEDS: MORPHINE SULFATE 2 MG/ML SYR IVP PRN (09:55)
[2021-03-05] MEDS ORDERED: LORazepam 1 MG TAB PO SCH (11:00)
[2021-03-05] MEDS: THERAHONEY GEL 42.5 GM TP SCH (13:27)
[2021-03-05 16:00] VITALS: BP 131/75
[2021-03-06] MEDS: GAUZE TP SCH ×2 (01:00→13:35)
[2021-03-06] MEDS: METOCLOPRAMIDE 10 MG/2 ML INJ VIAL IVP SCH ×3 (05:00→21:33)
[2021-03-06] MEDS: LORazepam 1 MG TAB PO SCH ×3 (05:00→21:51)
[2021-03-06 08:00] VITALS: BP 146/70
[2021-03-06] MEDS: FUROSEMIDE 20 MG TAB PO SCH (09:00)
[2021-03-06] MEDS: PANTOPRAZOLE 40 MG TABEC PO SCH (09:00)
[2021-03-06] MEDS: FOLIC ACID 1 MG TAB PO SCH (09:00)
[2021-03-06] MEDS: SODIUM CHLORIDE 1 GM TAB PO SCH (09:00)
[2021-03-06] MEDS: MULTIVITAMIN 1 TAB PO SCH (09:01)
[2021-03-06] MEDS: THIAMINE 100 MG TAB PO SCH (09:01)
[2021-03-06] MEDS: NICOTINE TRANSD SYS 14 MG/24 HR PATCH TD SCH (09:02)
[2021-03-06] MEDS: THERAHONEY GEL 42.5 GM TP SCH (13:35)
[2021-03-06 16:00] VITALS: BP 143/74
[2021-03-06 16:51] LABS: BASOPHILS # (AUTO) 0.1 K/uL (0.00-0.22); BASOPHILS % (AUTO) 0.4 % (0.0-2.0); EOSINOPHILS # (AUTO) 0.1 K/uL (0-0.4); EOSINOPHILS % (AUTO) 0.5 % (0.0-4.0); HEMATOCRIT 32.9 % (36-52); HEMOGLOBIN 11.1 g/dL (12.0-18.0); LYMPHOCYTES # (AUTO) 1.8 K/uL (2.0-11.5); LYMPHOCYTES % (AUTO) 13.9 % (20.5-51.1); MEAN CORPUSCULAR HEMOGLOBIN 33 pg (27-31); MEAN CORPUSCULAR HGB CONC 34 g/dL (33-37); MEAN CORPUSCULAR VOLUME 98.7 fL (80-94); MONOCYTES # (AUTO) 1.4 K/uL (0.8-1.0); MONOCYTES % (AUTO) 10.3 % (1.7-9.3); NEUTROPHILS # (AUTO) 9.8 K/uL (1.8-7.7); NEUTROPHILS % (AUTO) 74.9 % (42.2-75.2); PLATELET COUNT (AUTO) 297 K/uL (140-450); RED BLOOD CELL COUNT(AUTO) 3.33 MIL/uL (4.20-6.10); RED CELL DISTRIBUTION WIDTH 16.8 % (11.6-13.7); WHITE BLOOD COUNT (AUTO) 13.1 K/uL (4.8-10.8)
[2021-03-06 17:23] LABS: CREATININE 0.6 mg/dL (0.6-1.3); PHOSPHORUS 3.3 mg/dL (2.5-4.9)
[2021-03-06 17:40] LABS: ANION GAP 9.9 (8-16); CARBON DIOXIDE 29.1 mmol/L (21-32)
[2021-03-06 20:00] VITALS: BP 145/80
[2021-03-07] MEDS: GAUZE TP SCH ×2 (01:00→13:00)
[2021-03-07] MEDS: METOCLOPRAMIDE 10 MG/2 ML INJ VIAL IVP SCH ×3 (05:00→21:19)
[2021-03-07] MEDS: LORazepam 1 MG TAB PO SCH ×3 (05:00→21:00)
[2021-03-07 07:47] LABS: BASOPHILS % (AUTO) 0.1 % (0.0-2.0); EOSINOPHILS # (AUTO) 0.1 K/uL (0-0.4); EOSINOPHILS % (AUTO) 0.9 % (0.0-4.0); HEMATOCRIT 33.1 % (36-52); HEMOGLOBIN 11.2 g/dL (12.0-18.0); LYMPHOCYTES # (AUTO) 1.4 K/uL (2.0-11.5); LYMPHOCYTES % (AUTO) 12.5 % (20.5-51.1); MEAN CORPUSCULAR HEMOGLOBIN 34 pg (27-31); MEAN CORPUSCULAR HGB CONC 34 g/dL (33-37); MEAN CORPUSCULAR VOLUME 99.1 fL (80-94); MONOCYTES # (AUTO) 1.2 K/uL (0.8-1.0); MONOCYTES % (AUTO) 11.4 % (1.7-9.3); NEUTROPHILS # (AUTO) 8.2 K/uL (1.8-7.7); NEUTROPHILS % (AUTO) 75.1 % (42.2-75.2); PLATELET COUNT (AUTO) 356 K/uL (140-450); RED BLOOD CELL COUNT(AUTO) 3.33 MIL/uL (4.20-6.10); RED CELL DISTRIBUTION WIDTH 16.5 % (11.6-13.7)
[2021-03-07 07:50] LABS: PHOSPHORUS 3.1 mg/dL (2.5-4.9)
[2021-03-07 08:00] VITALS: BP 109/73
[2021-03-07 08:04] LABS: ANION GAP 8.4 (8-16); CARBON DIOXIDE 31.3 mmol/L (21-32); CREATININE 0.5 mg/dL (0.6-1.3); POTASSIUM 3.7 mmol/L (3.5-5.1)
[2021-03-07] MEDS: SODIUM CHLORIDE 1 GM TAB PO SCH (09:47)
[2021-03-07] MEDS: FOLIC ACID 1 MG TAB PO SCH (09:47)
[2021-03-07] MEDS: FUROSEMIDE 20 MG TAB PO SCH (09:47)
[2021-03-07] MEDS: MULTIVITAMIN 1 TAB PO SCH (09:47)
[2021-03-07] MEDS: THIAMINE 100 MG TAB PO SCH (09:48)
[2021-03-07] MEDS: NICOTINE TRANSD SYS 14 MG/24 HR PATCH TD SCH (09:48)
[2021-03-07] MEDS: PANTOPRAZOLE 40 MG TABEC PO SCH (09:48)
[2021-03-07] MEDS: ACETAMINOPHEN 325 MG TAB PO PRN (09:51)
[2021-03-07] MEDS ORDERED: LIDOCAINE 1% 500 MG/50 ML VIAL ONE (10:36)
[2021-03-07] MEDS ORDERED: BUPIVACAINE-MPF/EPI 0.25% 30 ML VIAL INJ ONE (10:36)
[2021-03-07] MEDS ORDERED: HYDROmorphone PFS 2 MG/ML SYR ONE (10:55)
[2021-03-07] MEDS ORDERED: PROPOFOL 200 MG/20 ML VIAL IV ONE (10:55)
[2021-03-07] MEDS ORDERED: DEXAMETHASONE 4 MG/ML VIAL ONE ×2 (10:58→10:59)
[2021-03-07] MEDS ORDERED: ONDANSETRON 4 MG/2 ML VIAL ONE (10:58)
[2021-03-07] MEDS ORDERED: ePHEDrine 50 MG/ML VIAL ONE (10:59)
[2021-03-07] MEDS ORDERED: PHENYLEPHRINE 10 MG/ML VIAL ONE (10:59)
[2021-03-07] MEDS ORDERED: ETOMIDATE 20 MG/10 ML VIAL IVP ONE (11:23)
[2021-03-07] MEDS ORDERED: SUCCINYLCHOLINE CHLORIDE 200 MG/10 ML VIAL IVP ONE (11:24)
[2021-03-07] MEDS ORDERED: ceFAZolin 1,000 MG VIAL ONE (11:24)
[2021-03-07] MEDS ORDERED: NEOSTIGMINE 1:1000 10 MG/10 ML VIAL ONE (11:24)
[2021-03-07] MEDS ORDERED: SEVOFLURANE 250 ML BTL INH ONE (11:24)
[2021-03-07] MEDS ORDERED: MEPERIDINE 25 MG/ML SYR IVP PRN (12:40)
[2021-03-07] MEDS ORDERED: ONDANSETRON 4 MG/2 ML VIAL IVP PRN (12:40)
[2021-03-07] MEDS ORDERED: HYDROmorphone 1 MG/ML AMP IVP PRN (12:40)
[2021-03-07] MEDS: THERAHONEY GEL 42.5 GM TP SCH (13:00)
[2021-03-07] MEDS ORDERED: NALOXONE 0.4 MG/ML VIAL ONE (15:17)
[2021-03-07] MEDS ORDERED: NALOXONE 0.4 MG/ML VIAL IVP ONE (15:20)
[2021-03-07] MEDS ORDERED: AMMONIA AROMATIC 1 INHL INH ONE (15:55)
[2021-03-07] MEDS: PIPERACILLIN/TAZOBACTAM 3.375 GM in DEXTROSE 5% 50 ML IV SCH (17:24)
[2021-03-07 20:00] VITALS: BP 99/58
[2021-03-08] MEDS: PIPERACILLIN/TAZOBACTAM 3.375 GM in DEXTROSE 5% 50 ML IV SCH ×4 (00:20→17:09)
[2021-03-08] MEDS: GAUZE TP SCH ×2 (01:00→12:34)
[2021-03-08 04:00] VITALS: BP 126/72
[2021-03-08] MEDS: METOCLOPRAMIDE 10 MG/2 ML INJ VIAL IVP SCH ×3 (04:56→21:57)
[2021-03-08] MEDS: LORazepam 1 MG TAB PO SCH ×3 (05:10→21:58)
[2021-03-08 07:09] LABS: BASOPHILS # (AUTO) 0.1 K/uL (0.00-0.22); HEMOGLOBIN 11.4 g/dL (12.0-18.0); MONOCYTES # (AUTO) 1.2 K/uL (0.8-1.0)
[2021-03-08 07:13] LABS: ANION GAP 12.5 (8-16); CREATININE 0.7 mg/dL (0.6-1.3); POTASSIUM 4.5 mmol/L (3.5-5.1)
[2021-03-08 07:16] LABS: MAGNESIUM 1.9 mg/dL (1.8-2.4); PHOSPHORUS 4.7 mg/dL (2.5-4.9)
[2021-03-08 07:22] LABS: BASOPHILS % (AUTO) 0.9 % (0.0-2.0); EOSINOPHILS # (AUTO) 0.1 K/uL (0-0.4); EOSINOPHILS % (AUTO) 0.4 % (0.0-4.0); HEMATOCRIT 34.6 % (36-52); LYMPHOCYTES # (AUTO) 1.8 K/uL (2.0-11.5); LYMPHOCYTES % (AUTO) 12.9 % (20.5-51.1); MEAN CORPUSCULAR HEMOGLOBIN 33 pg (27-31); MEAN CORPUSCULAR HGB CONC 33 g/dL (33-37); MEAN CORPUSCULAR VOLUME 100.3 fL (80-94); MONOCYTES % (AUTO) 8.1 % (1.7-9.3); NEUTROPHILS # (AUTO) 11.1 K/uL (1.8-7.7); NEUTROPHILS % (AUTO) 77.7 % (42.2-75.2); PLATELET COUNT (AUTO) 483 K/uL (140-450); RED BLOOD CELL COUNT(AUTO) 3.45 MIL/uL (4.20-6.10); RED CELL DISTRIBUTION WIDTH 16.3 % (11.6-13.7); WHITE BLOOD COUNT (AUTO) 14.3 K/uL (4.8-10.8)
[2021-03-08] MEDS: NICOTINE TRANSD SYS 14 MG/24 HR PATCH TD SCH (08:47)
[2021-03-08] MEDS: SODIUM CHLORIDE 1 GM TAB PO SCH (08:50)
[2021-03-08] MEDS: FOLIC ACID 1 MG TAB PO SCH (08:50)
[2021-03-08] MEDS: MULTIVITAMIN 1 TAB PO SCH (08:51)
[2021-03-08] MEDS: PANTOPRAZOLE 40 MG TABEC PO SCH (08:51)
[2021-03-08] MEDS: THIAMINE 100 MG TAB PO SCH (08:51)
[2021-03-08] MEDS: FUROSEMIDE 20 MG TAB PO SCH (08:52)
[2021-03-08] MEDS: THERAHONEY GEL 42.5 GM TP SCH (12:34)
[2021-03-08] MEDS: Z-GUARD PASTE TP SCH (12:34)
[2021-03-08 16:00] VITALS: BP 158/73
[2021-03-08] MEDS: ACETAMINOPHEN 325 MG TAB PO PRN (17:08)
[2021-03-08 20:00] VITALS: BP 136/76
[2021-03-09] MEDS: PIPERACILLIN/TAZOBACTAM 3.375 GM in DEXTROSE 5% 50 ML IV SCH ×4 (00:10→18:43)
[2021-03-09] MEDS: GAUZE TP SCH ×2 (01:00→12:25)
[2021-03-09] MEDS: Z-GUARD PASTE TP SCH ×2 (01:23→12:25)
[2021-03-09 04:00] VITALS: BP 122/55
[2021-03-09] MEDS: METOCLOPRAMIDE 10 MG/2 ML INJ VIAL IVP SCH ×3 (05:08→22:02)
[2021-03-09] MEDS: ACETAMINOPHEN 325 MG TAB PO PRN (05:08)
[2021-03-09] MEDS: LORazepam 1 MG TAB PO SCH ×3 (05:09→20:41)
[2021-03-09] MEDS: FOLIC ACID 1 MG TAB PO SCH (08:37)
[2021-03-09] MEDS: THIAMINE 100 MG TAB PO SCH (08:37)
[2021-03-09] MEDS: PANTOPRAZOLE 40 MG TABEC PO SCH (08:37)
[2021-03-09] MEDS: SODIUM CHLORIDE 1 GM TAB PO SCH (08:37)
[2021-03-09] MEDS: MULTIVITAMIN 1 TAB PO SCH (08:38)
[2021-03-09] MEDS: NICOTINE TRANSD SYS 14 MG/24 HR PATCH TD SCH (08:38)
[2021-03-09] MEDS: FUROSEMIDE 20 MG TAB PO SCH (08:38)
[2021-03-09] MEDS: THERAHONEY GEL 42.5 GM TP SCH (12:25)
[2021-03-09 16:00] VITALS: BP 128/72
[2021-03-10] VITALS: BP 132/72
[2021-03-10] MEDS: PIPERACILLIN/TAZOBACTAM 3.375 GM in DEXTROSE 5% 50 ML IV SCH ×4 (00:30→18:02)
[2021-03-10] MEDS: GAUZE TP SCH ×2 (01:02→13:00)
[2021-03-10] MEDS: Z-GUARD PASTE TP SCH ×2 (01:02→13:00)
[2021-03-10] MEDS: METOCLOPRAMIDE 10 MG/2 ML INJ VIAL IVP SCH ×3 (05:27→13:12)
[2021-03-10] MEDS: LORazepam 1 MG TAB PO SCH ×3 (05:41→21:00)
[2021-03-10 08:00] VITALS: BP 155/86
[2021-03-10] MEDS: MULTIVITAMIN 1 TAB PO SCH (09:16)
[2021-03-10] MEDS: PANTOPRAZOLE 40 MG TABEC PO SCH (09:17)
[2021-03-10] MEDS: THIAMINE 100 MG TAB PO SCH (09:17)
[2021-03-10] MEDS: SODIUM CHLORIDE 1 GM TAB PO SCH (09:17)
[2021-03-10] MEDS: FUROSEMIDE 20 MG TAB PO SCH (09:18)
[2021-03-10] MEDS: NICOTINE TRANSD SYS 14 MG/24 HR PATCH TD SCH (09:20)
[2021-03-10] MEDS: FOLIC ACID 1 MG TAB PO SCH (09:47)
[2021-03-10] MEDS: THERAHONEY GEL 42.5 GM TP SCH (13:00)
[2021-03-10 16:00] VITALS: BP 110/64
[2021-03-10] MEDS: ACETAMINOPHEN 325 MG TAB PO PRN (18:05)
[2021-03-11] VITALS: BP 133/70
[2021-03-11] MEDS: Z-GUARD PASTE TP SCH ×2 (01:02→13:29)
[2021-03-11] MEDS: GAUZE TP SCH ×2 (01:02→13:34)
[2021-03-11] MEDS: LORazepam 1 MG TAB PO SCH ×3 (05:00→20:11)
[2021-03-11] MEDS: METOCLOPRAMIDE 10 MG/2 ML INJ VIAL IVP SCH ×3 (05:18→21:00)
[2021-03-11] MEDS: PIPERACILLIN/TAZOBACTAM 3.375 GM in DEXTROSE 5% 50 ML IV SCH ×5 (06:31→18:27)
[2021-03-11 07:28] LABS: BASOPHILS # (AUTO) 0.1 K/uL (0.00-0.22); BASOPHILS % (AUTO) 0.7 % (0.0-2.0); EOSINOPHILS # (AUTO) 0.1 K/uL (0-0.4); EOSINOPHILS % (AUTO) 0.8 % (0.0-4.0); HEMATOCRIT 31.3 % (36-52); HEMOGLOBIN 10.4 g/dL (12.0-18.0); LYMPHOCYTES # (AUTO) 1.1 K/uL (2.0-11.5); LYMPHOCYTES % (AUTO) 8.1 % (20.5-51.1); MEAN CORPUSCULAR HEMOGLOBIN 32 pg (27-31); MEAN CORPUSCULAR HGB CONC 33 g/dL (33-37); MEAN CORPUSCULAR VOLUME 97.3 fL (80-94); MONOCYTES # (AUTO) 1.2 K/uL (0.8-1.0); MONOCYTES % (AUTO) 8.6 % (1.7-9.3); NEUTROPHILS # (AUTO) 11.3 K/uL (1.8-7.7); NEUTROPHILS % (AUTO) 81.8 % (42.2-75.2); PLATELET COUNT (AUTO) 622 K/uL (140-450); RED BLOOD CELL COUNT(AUTO) 3.21 MIL/uL (4.20-6.10); RED CELL DISTRIBUTION WIDTH 15.8 % (11.6-13.7); WHITE BLOOD COUNT (AUTO) 13.8 K/uL (4.8-10.8)
[2021-03-11 08:00] VITALS: BP 168/84
[2021-03-11 08:14] LABS: ANION GAP 8.1 (8-16); CARBON DIOXIDE 30.1 mmol/L (21-32); CREATININE 0.4 mg/dL (0.6-1.3); POTASSIUM 3.2 mmol/L (3.5-5.1)
[2021-03-11] MEDS: FOLIC ACID 1 MG TAB PO SCH (09:46)
[2021-03-11] MEDS: SODIUM CHLORIDE 1 GM TAB PO SCH (09:47)
[2021-03-11] MEDS: FUROSEMIDE 20 MG TAB PO SCH (09:47)
[2021-03-11] MEDS: PANTOPRAZOLE 40 MG TABEC PO SCH (09:47)
[2021-03-11] MEDS: MULTIVITAMIN 1 TAB PO SCH (09:48)
[2021-03-11] MEDS: THIAMINE 100 MG TAB PO SCH (09:48)
[2021-03-11] MEDS: NICOTINE TRANSD SYS 14 MG/24 HR PATCH TD SCH (09:49)
[2021-03-11] MEDS: POTASSIUM CHLORIDE 10 MEQ TABER PO PRN (13:29)
[2021-03-11] MEDS: THERAHONEY GEL 42.5 GM TP SCH (13:34)
[2021-03-11 16:00] VITALS: BP 159/78
[2021-03-12] VITALS: BP 139/75
[2021-03-12] MEDS: PIPERACILLIN/TAZOBACTAM 3.375 GM in DEXTROSE 5% 50 ML IV SCH (00:42)
[2021-03-12] MEDS: Z-GUARD PASTE TP SCH ×2 (01:02→13:39)
[2021-03-12] MEDS: GAUZE TP SCH ×2 (01:02→13:38)
[2021-03-12] MEDS: LORazepam 1 MG TAB PO SCH ×3 (05:17→21:00)
[2021-03-12] MEDS: METOCLOPRAMIDE 10 MG/2 ML INJ VIAL IVP SCH ×3 (06:22→21:00)
[2021-03-12 07:02] LABS: BASOPHILS # (AUTO) 0.1 K/uL (0.00-0.22); BASOPHILS % (AUTO) 0.9 % (0.0-2.0); EOSINOPHILS # (AUTO) 0.1 K/uL (0-0.4); EOSINOPHILS % (AUTO) 0.5 % (0.0-4.0); HEMATOCRIT 27.8 % (36-52); HEMOGLOBIN 9.3 g/dL (12.0-18.0); LYMPHOCYTES # (AUTO) 1.3 K/uL (2.0-11.5); LYMPHOCYTES % (AUTO) 11.7 % (20.5-51.1); MEAN CORPUSCULAR HEMOGLOBIN 32 pg (27-31); MEAN CORPUSCULAR HGB CONC 33 g/dL (33-37); MEAN CORPUSCULAR VOLUME 96.6 fL (80-94); MONOCYTES # (AUTO) 1.3 K/uL (0.8-1.0); MONOCYTES % (AUTO) 11.5 % (1.7-9.3); NEUTROPHILS # (AUTO) 8.4 K/uL (1.8-7.7); NEUTROPHILS % (AUTO) 75.4 % (42.2-75.2); PLATELET COUNT (AUTO) 508 K/uL (140-450); RED BLOOD CELL COUNT(AUTO) 2.88 MIL/uL (4.20-6.10); RED CELL DISTRIBUTION WIDTH 16.4 % (11.6-13.7); WHITE BLOOD COUNT (AUTO) 11.2 K/uL (4.8-10.8)
[2021-03-12 07:37] LABS: CARBON DIOXIDE 30.2 mmol/L (21-32); CREATININE 0.4 mg/dL (0.6-1.3); POTASSIUM 3.2 mmol/L (3.5-5.1)
[2021-03-12 08:00] VITALS: BP 156/81
[2021-03-12] MEDS: FOLIC ACID 1 MG TAB PO SCH (09:24)
[2021-03-12] MEDS: MULTIVITAMIN 1 TAB PO SCH (09:25)
[2021-03-12] MEDS: FUROSEMIDE 20 MG TAB PO SCH (09:25)
[2021-03-12] MEDS: SODIUM CHLORIDE 1 GM TAB PO SCH (09:25)
[2021-03-12] MEDS: THIAMINE 100 MG TAB PO SCH (09:25)
[2021-03-12] MEDS: PANTOPRAZOLE 40 MG TABEC PO SCH (09:25)
[2021-03-12] MEDS: NICOTINE TRANSD SYS 14 MG/24 HR PATCH TD SCH (09:26)
[2021-03-12] MEDS: THERAHONEY GEL 42.5 GM TP SCH (13:39)
[2021-03-12] MEDS: POTASSIUM CHLORIDE 10 MEQ TABER PO PRN (14:48)
[2021-03-12 16:00] VITALS: BP 143/76
[2021-03-12] MEDS ORDERED: LIDOCAINE 1% 500 MG/50 ML VIAL ONE (17:08)
[2021-03-12] MEDS ORDERED: BUPIVACAINE-MPF 0.25% 30 ML VIAL INJ ONE (17:08)
[2021-03-12] MEDS ORDERED: PIPERACILLIN/TAZOBACTAM 3.375 GM VIAL IV ONE (17:47)
[2021-03-12] MEDS ORDERED: HYDROmorphone PFS 2 MG/ML SYR ONE (17:57)
[2021-03-12] MEDS ORDERED: SUCCINYLCHOLINE CHLORIDE 200 MG/10 ML VIAL IVP ONE (18:03)
[2021-03-12] MEDS ORDERED: ETOMIDATE 20 MG/10 ML VIAL IVP ONE (18:03)
[2021-03-12] MEDS ORDERED: MIDAZOLAM 2 MG/2 ML VIAL ONE (18:14)
[2021-03-12] MEDS ORDERED: MORPHINE PRES FREE 10 MG/10 ML AMP IV ONE (18:16)
[2021-03-12] MEDS ORDERED: FLUMAZENIL 0.5 MG/5 ML VIAL IVP ONE (19:31)
[2021-03-12] MEDS ORDERED: MORPHINE SULFATE 2 MG/ML SYR IVP PRN (19:35)
[2021-03-12] MEDS ORDERED: MORPHINE SULFATE 4 MG/ML SYR IV PRN (19:35)
[2021-03-12] MEDS ORDERED: HYDROmorphone 1 MG/ML AMP IVP PRN (19:35)
[2021-03-12] MEDS ORDERED: ONDANSETRON 4 MG/2 ML VIAL IV PRN (19:35)
[2021-03-12] MEDS ORDERED: HYDROcodone/APAP 5/325 MG 1 TAB TAB PO PRN (19:35)
[2021-03-12] MEDS ORDERED: NALOXONE 0.4 MG/ML VIAL IVP PRN ×2 (20:15)
[2021-03-12] MEDS ORDERED: ONDANSETRON 4 MG/2 ML VIAL IVP PRN (20:15)
[2021-03-12] MEDS: MEROPENEM 1,000 MG in NACL 0.9% 100 ML IV SCH (21:00)
[2021-03-12] MEDS ORDERED: MEROPENEM 1,000 MG VIAL IV ONE (21:56)
[2021-03-13] VITALS: BP 114/78
[2021-03-13] MEDS: Z-GUARD PASTE TP SCH ×2 (01:16→13:00)
[2021-03-13] MEDS: GAUZE TP SCH ×2 (01:16→13:00)
[2021-03-13] MEDS ORDERED: MEROPENEM 1,000 MG VIAL IV ONE (04:27)
[2021-03-13] MEDS: MEROPENEM 1,000 MG in NACL 0.9% 100 ML IV SCH ×3 (05:33→21:00)
[2021-03-13] MEDS: METOCLOPRAMIDE 10 MG/2 ML INJ VIAL IVP SCH ×3 (05:33→21:00)
[2021-03-13 08:00] VITALS: BP 146/72
[2021-03-13] MEDS: THIAMINE 100 MG TAB PO SCH (09:33)
[2021-03-13] MEDS: MULTIVITAMIN 1 TAB PO SCH (09:34)
[2021-03-13] MEDS: FOLIC ACID 1 MG TAB PO SCH (09:34)
[2021-03-13] MEDS: SODIUM CHLORIDE 1 GM TAB PO SCH (09:34)
[2021-03-13] MEDS: PANTOPRAZOLE 40 MG TABEC PO SCH (09:34)
[2021-03-13] MEDS: FUROSEMIDE 20 MG TAB PO SCH (09:34)
[2021-03-13] MEDS: NICOTINE TRANSD SYS 14 MG/24 HR PATCH TD SCH (09:44)
[2021-03-13] MEDS: THERAHONEY GEL 42.5 GM TP SCH (13:00)
[2021-03-13 16:00] VITALS: BP 156/77
[2021-03-13 20:00] VITALS: BP 150/74
[2021-03-14] VITALS: BP 153/78
[2021-03-14] MEDS: GAUZE TP SCH ×2 (01:00→13:06)
[2021-03-14] MEDS: Z-GUARD PASTE TP SCH ×2 (01:00→13:06)
[2021-03-14] MEDS: MEROPENEM 1,000 MG in NACL 0.9% 100 ML IV SCH ×2 (05:38→13:35)
[2021-03-14] MEDS: METOCLOPRAMIDE 10 MG/2 ML INJ VIAL IVP SCH ×3 (05:38→20:50)
[2021-03-14 08:00] VITALS: BP 155/80
[2021-03-14] MEDS: MULTIVITAMIN 1 TAB PO SCH (09:00)
[2021-03-14] MEDS: FUROSEMIDE 20 MG TAB PO SCH (09:00)
[2021-03-14] MEDS: THIAMINE 100 MG TAB PO SCH (09:00)
[2021-03-14] MEDS: FOLIC ACID 1 MG TAB PO SCH (09:01)
[2021-03-14] MEDS: PANTOPRAZOLE 40 MG TABEC PO SCH (09:01)
[2021-03-14] MEDS: SODIUM CHLORIDE 1 GM TAB PO SCH (09:01)
[2021-03-14] MEDS: NICOTINE TRANSD SYS 14 MG/24 HR PATCH TD SCH (09:01)
[2021-03-14] MEDS: THERAHONEY GEL 42.5 GM TP SCH (13:06)
[2021-03-14 16:00] VITALS: BP 143/82
[2021-03-15] VITALS: BP 139/79
[2021-03-15] MEDS ORDERED: LEVO750T51 PO (00:36)
[2021-03-15] MEDS: Z-GUARD PASTE TP SCH ×2 (01:27→13:57)
[2021-03-15] MEDS: GAUZE TP SCH ×2 (01:27→13:56)
[2021-03-15 08:00] VITALS: BP 149/89
[2021-03-15] MEDS: THIAMINE 100 MG TAB PO SCH (10:01)
[2021-03-15] MEDS: PANTOPRAZOLE 40 MG TABEC PO SCH (10:01)
[2021-03-15] MEDS: FOLIC ACID 1 MG TAB PO SCH (10:02)
[2021-03-15] MEDS: MULTIVITAMIN 1 TAB PO SCH (10:02)
[2021-03-15] MEDS: levoFLOXacin 750 MG TAB PO SCH (10:03)
[2021-03-15] MEDS: NICOTINE TRANSD SYS 14 MG/24 HR PATCH TD SCH (10:05)
[2021-03-15] MEDS: THERAHONEY GEL 42.5 GM TP SCH (13:56)
[2021-03-15 16:00] VITALS: BP 122/84
[2021-03-15 19:58] LABS: BASOPHILS % (AUTO) 0.4 % (0.0-2.0); EOSINOPHILS % (AUTO) 0.2 % (0.0-4.0); HEMATOCRIT 28.4 % (36-52); HEMOGLOBIN 9.4 g/dL (12.0-18.0); MEAN CORPUSCULAR HEMOGLOBIN 32 pg (27-31); MEAN CORPUSCULAR HGB CONC 33 g/dL (33-37); MEAN CORPUSCULAR VOLUME 97.5 fL (80-94); MONOCYTES # (AUTO) 0.8 K/uL (0.8-1.0); MONOCYTES % (AUTO) 13.4 % (1.7-9.3); NEUTROPHILS # (AUTO) 4.4 K/uL (1.8-7.7); PLATELET COUNT (AUTO) 428 K/uL (140-450); RED BLOOD CELL COUNT(AUTO) 2.91 MIL/uL (4.20-6.10); RED CELL DISTRIBUTION WIDTH 16.4 % (11.6-13.7); WHITE BLOOD COUNT (AUTO) 6.3 K/uL (4.8-10.8)
[2021-03-15 20:00] VITALS: BP 107/59
[2021-03-15 20:53] LABS: ANION GAP 3.6 (8-16); CARBON DIOXIDE 31.5 mmol/L (21-32); CREATININE 0.5 mg/dL (0.6-1.3); POTASSIUM 4.1 mmol/L (3.5-5.1)
[2021-03-16] MEDS: Z-GUARD PASTE TP SCH ×2 (01:00→13:03)
[2021-03-16] MEDS: GAUZE TP SCH ×2 (01:00→13:02)
[2021-03-16 04:00] VITALS: BP 137/66
[2021-03-16 08:00] VITALS: BP 132/66
[2021-03-16] MEDS: NICOTINE TRANSD SYS 14 MG/24 HR PATCH TD SCH (09:00)
[2021-03-16] MEDS: THIAMINE 100 MG TAB PO SCH (09:00)
[2021-03-16] MEDS: MULTIVITAMIN 1 TAB PO SCH (12:04)
[2021-03-16] MEDS: PANTOPRAZOLE 40 MG TABEC PO SCH (12:04)
[2021-03-16] MEDS: levoFLOXacin 750 MG TAB PO SCH (12:05)
[2021-03-16] MEDS: FOLIC ACID 1 MG TAB PO SCH (12:05)
[2021-03-16] MEDS: THERAHONEY GEL 42.5 GM TP SCH (13:02)
[2021-03-16 16:00] VITALS: BP 128/74
[2021-03-17] VITALS: BP 125/70
[2021-03-17] MEDS: GAUZE TP SCH ×2 (01:20→13:42)
[2021-03-17] MEDS: Z-GUARD PASTE TP SCH ×2 (01:21→13:42)
[2021-03-17 08:00] VITALS: BP 95/55
[2021-03-17] MEDS: THIAMINE 100 MG TAB PO SCH (09:00)
[2021-03-17] MEDS: levoFLOXacin 750 MG TAB PO SCH (10:22)
[2021-03-17] MEDS: NICOTINE TRANSD SYS 14 MG/24 HR PATCH TD SCH (10:22)
[2021-03-17] MEDS: FOLIC ACID 1 MG TAB PO SCH (10:22)
[2021-03-17] MEDS: MULTIVITAMIN 1 TAB PO SCH (10:23)
[2021-03-17] MEDS: PANTOPRAZOLE 40 MG TABEC PO SCH (10:23)
[2021-03-17] MEDS: THERAHONEY GEL 42.5 GM TP SCH (13:42)
[2021-03-17 16:00] VITALS: BP 98/55
[2021-03-18] VITALS: BP 101/57
[2021-03-18] MEDS: Z-GUARD PASTE TP SCH ×2 (01:00→13:00)
[2021-03-18] MEDS: GAUZE TP SCH ×2 (01:00→13:00)
[2021-03-18 07:11] LABS: ANION GAP 10.2 (8-16); CARBON DIOXIDE 28.8 mmol/L (21-32); CREATININE 0.5 mg/dL (0.6-1.3)
[2021-03-18 07:21] LABS: BASOPHILS % (AUTO) 0.4 % (0.0-2.0); EOSINOPHILS % (AUTO) 0.1 % (0.0-4.0); HEMOGLOBIN 10.2 g/dL (12.0-18.0); LYMPHOCYTES # (AUTO) 1.2 K/uL (2.0-11.5); LYMPHOCYTES % (AUTO) 24.5 % (20.5-51.1); MEAN CORPUSCULAR HEMOGLOBIN 32 pg (27-31); MEAN CORPUSCULAR HGB CONC 34 g/dL (33-37); MEAN CORPUSCULAR VOLUME 94.5 fL (80-94); MONOCYTES # (AUTO) 0.5 K/uL (0.8-1.0); MONOCYTES % (AUTO) 10.7 % (1.7-9.3); NEUTROPHILS # (AUTO) 3.2 K/uL (1.8-7.7); NEUTROPHILS % (AUTO) 64.3 % (42.2-75.2); PLATELET COUNT (AUTO) 357 K/uL (140-450); RED BLOOD CELL COUNT(AUTO) 3.17 MIL/uL (4.20-6.10); RED CELL DISTRIBUTION WIDTH 16.9 % (11.6-13.7)
[2021-03-18 08:00] VITALS: BP 140/90
[2021-03-18] MEDS: THIAMINE 100 MG TAB PO SCH (09:24)
[2021-03-18] MEDS: FOLIC ACID 1 MG TAB PO SCH (09:24)
[2021-03-18] MEDS: PANTOPRAZOLE 40 MG TABEC PO SCH (09:24)
[2021-03-18] MEDS: levoFLOXacin 750 MG TAB PO SCH (09:25)
[2021-03-18] MEDS: ACETAMINOPHEN 325 MG TAB PO PRN (09:25)
[2021-03-18] MEDS: NICOTINE TRANSD SYS 14 MG/24 HR PATCH TD SCH (09:25)
[2021-03-18] MEDS: MULTIVITAMIN 1 TAB PO SCH (09:25)
[2021-03-18 11:29] VITALS: BP 140/90
[2021-03-18] MEDS: THERAHONEY GEL 42.5 GM TP SCH (13:00)
== END 2021-03-18 16:53 | disposition home or self-care (01) | DRG 710 ==
LOC: MED 19:04 → MMU 21:19 → MED 21:40 → MTU 23:00
PROVIDERS: ADMIT Family Medicine; ATTEND Family Medicine
PROC: B41F1ZZ Fluoroscopy of Right Lower Extremity Arteries using Low Osmolar Contrast (ICD-10-PCS; 2021-02-22)
PROC: 0Y6H0Z1 Detachment at Right Lower Leg, High, Open Approach (ICD-10-PCS; principal; 2021-02-25 11:30)
PROC: 0Y6H0Z1 Detachment at Right Lower Leg, High, Open Approach (ICD-10-PCS; 2021-03-07)
PROC: 0Y6C0Z3 Detachment at Right Upper Leg, Low, Open Approach (ICD-10-PCS; 2021-03-12)
DX: A41.9 Sepsis, unspecified organism (principal); J96.01 Acute respiratory failure with hypoxia; M72.6 Necrotizing fasciitis; J69.0 Pneumonitis due to inhalation of food and vomit; E43 Unspecified severe protein-calorie malnutrition; G92.8 Other toxic encephalopathy; E87.2 Acidosis; I96 Gangrene, not elsewhere classified; E87.1 Hypo-osmolality and hyponatremia; T87.43 Infection of amputation stump, right lower extremity; E87.0 Hyperosmolality and hypernatremia; L97.919 Non-pressure chronic ulcer of unspecified part of right lower leg with unspecified severity; E87.5 Hyperkalemia; I10 Essential (primary) hypertension; F10.129 Alcohol abuse with intoxication, unspecified; Y90.2 Blood alcohol level of 40-59 mg/100 ml; L97.929 Non-pressure chronic ulcer of unspecified part of left lower leg with unspecified severity; R74.01 Elevation of levels of liver transaminase levels; L03.115 Cellulitis of right lower limb; L89.152 Pressure ulcer of sacral region, stage 2; M72.9 Fibroblastic disorder, unspecified; J44.0 Chronic obstructive pulmonary disease with (acute) lower respiratory infection; Y83.5 Amputation of limb(s) as the cause of abnormal reaction of the patient, or of later complication, without mention of misadventure at the time of the procedure; J90 Pleural effusion, not elsewhere classified; F17.200 Nicotine dependence, unspecified, uncomplicated; M86.9 Osteomyelitis, unspecified; Z20.822 Contact with and (suspected) exposure to COVID-19; Z91.19 Patient's noncompliance with other medical treatment and regimen; Z91.14 Patient's other noncompliance with medication regimen; Z68.1 Body mass index [BMI] 19.9 or less, adult; Y92.89 Other specified places as the place of occurrence of the external cause
CPT/HCPCS: 36415; 71045; 73590; 74018; 80048; 80053; 82140; 82150; 82948; 83036; 83605; 83690; 83735; 83880; 84100; 84436; 84439; 84443; 84479; 84484; 85025; 85610; 85730; 87040; 87070; 87075; 87081; 87086; 87186; 87205; 88305; 88307; 93005; 93970; 96365; 96366; 96368; 97110; 97112; 97163-GP; 97530; 99285; G0482; J0330; J0610; J0690; J1100; J1170; J2001; J2060; J2185; J2250; J2270; J2310; J2370; J2405; J2543; J2704; J2710; J2765; J3370; J3490; J7030; J7060; J7120; Q0092; Q9967

== ENCOUNTER 2021-03-22 22:56 | Emergency (ER) | payer MEDICAID, SELFPAY ==
[~2021-03-22] VITALS: Ht 170.2 cm; Wt 53.1 kg
[~2021-03-22 22:56] MED LIST: FOLI1TAB90 PO; FURO20TA8 PO; LEVO750T51 PO; MULT-405 PO; PANT40EC56 PO; THIA-34 PO
[2021-03-22] MEDS: AMPICILLIN/SULBACTAM 3 GM in NACL 0.9% 100 ML IV ONE (23:00)
[2021-03-22] MEDS: NACL 0.9% 1,000 ML IV ONE (23:00)
[2021-03-22 23:16] VITALS: BP 116/65
--- NOTE | 2021-03-22 23:19 | NUR ---
pt wheelchair assist to bed 04
[2021-03-23] VITALS: BP 116/62
[2021-03-23] MEDS: NACL 0.9% 1,000 ML IV ONE (00:33)
[2021-03-23] MEDS ORDERED: AMPICILLIN/SULBACTAM 3 GM VIAL ONE (00:35)
[2021-03-23] MEDS: AMPICILLIN/SULBACTAM 3 GM in NACL 0.9% 100 ML IV ONE (00:36)
[2021-03-23 00:40] LABS: BASOPHILS % (AUTO) 0.6 % (0.0-2.0); EOSINOPHILS % (AUTO) 0.1 % (0.0-4.0); HEMATOCRIT 31.8 % (36-52); HEMOGLOBIN 10.8 g/dL (12.0-18.0); LYMPHOCYTES % (AUTO) 13.7 % (20.5-51.1); MEAN CORPUSCULAR HEMOGLOBIN 32 pg (27-31); MEAN CORPUSCULAR HGB CONC 34 g/dL (33-37); MEAN CORPUSCULAR VOLUME 93.9 fL (80-94); MONOCYTES # (AUTO) 0.8 K/uL (0.8-1.0); MONOCYTES % (AUTO) 11.3 % (1.7-9.3); NEUTROPHILS # (AUTO) 5.3 K/uL (1.8-7.7); NEUTROPHILS % (AUTO) 74.3 % (42.2-75.2); PLATELET COUNT (AUTO) 400 K/uL (140-450); RED BLOOD CELL COUNT(AUTO) 3.38 MIL/uL (4.20-6.10); RED CELL DISTRIBUTION WIDTH 17.4 % (11.6-13.7); WHITE BLOOD COUNT (AUTO) 7.2 K/uL (4.8-10.8)
[2021-03-23 00:45] LABS: PROTHROMBIN TIME 10.8 secs (10.8-13.4)
--- NOTE | 2021-03-23 00:52 | NUR ---
PATIENT REFUSED TO TAKE ANTIBIOTICS AND MEDICATION NOW HE ASKING TO GO HOME AGAINS TO MEDICAL AVICED WE GAVE THE AMA FORM AND HE SIGN IT
[2021-03-23 00:53] LABS: ALBUMIN 1.6 g/dL (3.4-5.0); CARBON DIOXIDE 25.3 mmol/L (21-32); CREATININE 0.5 mg/dL (0.6-1.3); POTASSIUM 5.3 mmol/L (3.5-5.1); TOTAL BILIRUBIN 0.7 mg/dL (0.0-1.0)
== END 2021-03-23 00:40 | disposition left against medical advice (07) ==
LOC: MED 22:56
DX: I73.9 Peripheral vascular disease, unspecified (principal); D64.9 Anemia, unspecified; J44.9 Chronic obstructive pulmonary disease, unspecified; I10 Essential (primary) hypertension; F17.210 Nicotine dependence, cigarettes, uncomplicated
CPT/HCPCS: 36415; 80053; 83605; 85025; 85610; 85730; 86140; 87040; 99283; J0295

== ENCOUNTER 2021-03-25 11:04 | Inpatient (IN) | payer OTHER, MEDICAID, SELFPAY ==
[~2021-03-25] VITALS: Ht 170.2 cm; Wt 57.6 kg
[2021-03-25 11:28] VITALS: BP 128/77
[2021-03-25] MEDS ORDERED: PIPERACILLIN/TAZOBACTAM 3.375 GM in DEXT 5% MINI-BAG PLUS 50 ML IV ONE (12:15)
[2021-03-25] MEDS ORDERED: NACL 0.9% 500 ML IV SCH (12:15)
[2021-03-25] MEDS ORDERED: VANCOMYCIN 1,000 MG in DEXTROSE 5% 250 ML IV ONE (12:15)
[2021-03-25] MEDS ORDERED: PIPERACILLIN/TAZOBACTAM 3.375 GM VIAL IV ONE ×2 (12:32→20:44)
[2021-03-25 12:47] LABS: BASOPHILS # (AUTO) 0.1 K/uL (0.00-0.22); BASOPHILS % (AUTO) 1.3 % (0.0-2.0); EOSINOPHILS % (AUTO) 0.4 % (0.0-4.0); HEMATOCRIT 33.6 % (36-52); LYMPHOCYTES # (AUTO) 1.3 K/uL (2.0-11.5); LYMPHOCYTES % (AUTO) 11.9 % (20.5-51.1); MEAN CORPUSCULAR HEMOGLOBIN 31 pg (27-31); MEAN CORPUSCULAR HGB CONC 33 g/dL (33-37); MEAN CORPUSCULAR VOLUME 94.8 fL (80-94); MONOCYTES # (AUTO) 1.3 K/uL (0.8-1.0); MONOCYTES % (AUTO) 11.6 % (1.7-9.3); NEUTROPHILS # (AUTO) 8.3 K/uL (1.8-7.7); NEUTROPHILS % (AUTO) 74.8 % (42.2-75.2); PLATELET COUNT (AUTO) 293 K/uL (140-450); RED BLOOD CELL COUNT(AUTO) 3.54 MIL/uL (4.20-6.10); RED CELL DISTRIBUTION WIDTH 17.4 % (11.6-13.7); WHITE BLOOD COUNT (AUTO) 11.1 K/uL (4.8-10.8)
[2021-03-25 12:57] LABS: PROTHROMBIN TIME 10.7 secs (10.8-13.4)
[2021-03-25 13:08] LABS: ALBUMIN 1.8 g/dL (3.4-5.0); ANION GAP 16.7 (8-16); CARBON DIOXIDE 23.3 mmol/L (21-32); CREATININE 0.5 mg/dL (0.6-1.3); TOTAL BILIRUBIN 0.9 mg/dL (0.0-1.0)
[2021-03-25] MEDS ORDERED: VANCOMYCIN 1,000 MG VIAL ONE (13:13)
[2021-03-25 14:12] LABS: ANION GAP 18.5 (8-16); CARBON DIOXIDE 22.4 mmol/L (21-32); CREATININE 0.4 mg/dL (0.6-1.3); POTASSIUM 4.9 mmol/L (3.5-5.1)
[2021-03-25] MEDS ORDERED: HALOPERIDOL IM 5 MG/ML VIAL ONE (18:00)
[2021-03-25] MEDS ORDERED: DEXT 5% /NACL 0.9% 1,000 ML IV SCH ×2 (18:10→19:00)
[2021-03-25] MEDS ORDERED: HALOPERIDOL IM 5 MG/ML VIAL IM SCH (18:30)
[2021-03-25] MEDS ORDERED: COMMUNICATION ORDER MC ONE (19:00)
[2021-03-25] MEDS ORDERED: DOCUSATE SODIUM 100 MG GELCAP PO PRN (19:00)
[2021-03-25] MEDS ORDERED: POTASSIUM CHLORIDE 10 MEQ TABER PO PRN (19:00)
[2021-03-25] MEDS ORDERED: ZOLPIDEM 5 MG TAB PO PRN (19:00)
[2021-03-25] MEDS ORDERED: ONDANSETRON 4 MG/2 ML VIAL IM/IVP PRN (19:00)
[2021-03-25] MEDS ORDERED: guaiFENesin DM 200/20 MG-10 ML 10 ML UDC PO PRN (19:00)
[2021-03-25] MEDS: ALBUTEROL SULFATE/IPRATROPIU 3 ML SOL IH SCH (19:00)
[2021-03-25] MEDS ORDERED: ALBUTEROL SULFATE/IPRATROPIU 3 ML SOL IH PRN (19:00)
[2021-03-25] MEDS ORDERED: ALBUTEROL HFA MDI 90 MCG/ACTUATION 8 GM INH PRN (19:00)
[2021-03-25] MEDS ORDERED: HYDROcodone/APAP 7.5/325 MG 1 TAB PO PRN (19:00)
[2021-03-25 19:01] VITALS: BP 133/81
[2021-03-25] MEDS ORDERED: methylPREDNISolone SS 125 MG/2 ML VIAL IVP SCH (19:05)
[2021-03-25 20:06] LABS: CHOL/HDL RATIO 4.9 (1-4.5); FREE T4 (FREE THYROXINE) 1.18 ng/dL (0.76-1.46); MAGNESIUM 1.6 mg/dL (1.8-2.4); PHOSPHORUS 3.8 mg/dL (2.5-4.9); THYROID STIMULATING HORMONE 3.47 uIU/mL (0.34-3.74)
[2021-03-25] MEDS: DEXT 5% /NACL 0.9% 1,000 ML IV SCH (20:20)
[2021-03-25] MEDS: PIPERACILLIN/TAZOBACTAM 3.375 GM in DEXTROSE 5% 50 ML IV SCH (20:55)
[2021-03-25] MEDS ORDERED: LORazepam 2 MG/ML VIAL IVP PRN (22:30)
[2021-03-26] VITALS (10 sets, daily range): BP systolic 92–138; BP diastolic 57–91
[2021-03-26] MEDS ORDERED: PROPOFOL 200 MG/20 ML VIAL IV ONE ×2 (02:23→05:00)
[2021-03-26] MEDS ORDERED: PROPOFOL 1000 MG/100 ML PREMIX 100 ML IV ONE ×2 (02:23→05:05)
[2021-03-26] MEDS ORDERED: ETOMIDATE 20 MG/10 ML VIAL IVP ONE ×3 (02:25→12:00)
[2021-03-26] MEDS ORDERED: INTUBATION KIT MC ONE (02:29)
[2021-03-26] MEDS ORDERED: ROCURONIUM 50 MG/5 ML VIAL IV ONE ×2 (03:21→12:00)
[2021-03-26] MEDS ORDERED: PIPERACILLIN/TAZOBACTAM 3.375 GM VIAL IV ONE (04:33)
[2021-03-26] MEDS: PIPERACILLIN/TAZOBACTAM 3.375 GM in DEXTROSE 5% 50 ML IV SCH ×3 (04:48→21:23)
[2021-03-26] MEDS: DEXT 5% /NACL 0.9% 1,000 ML IV SCH ×2 (05:30→16:12)
[2021-03-26] MEDS: methylPREDNISolone SS 40 MG/ML VIAL IVP SCH ×3 (06:07→21:18)
[2021-03-26 07:09] LABS: BASOPHILS % (AUTO) 0.3 % (0.0-2.0); HEMATOCRIT 37.4 % (36-52); HEMOGLOBIN 12.2 g/dL (12.0-18.0); LYMPHOCYTES # (AUTO) 0.9 K/uL (2.0-11.5); LYMPHOCYTES % (AUTO) 6.3 % (20.5-51.1); MEAN CORPUSCULAR HEMOGLOBIN 31 pg (27-31); MEAN CORPUSCULAR HGB CONC 33 g/dL (33-37); MEAN CORPUSCULAR VOLUME 95.1 fL (80-94); MONOCYTES # (AUTO) 0.8 K/uL (0.8-1.0); MONOCYTES % (AUTO) 5.6 % (1.7-9.3); NEUTROPHILS # (AUTO) 12.8 K/uL (1.8-7.7); NEUTROPHILS % (AUTO) 87.8 % (42.2-75.2); PLATELET COUNT (AUTO) 321 K/uL (140-450); RED BLOOD CELL COUNT(AUTO) 3.93 MIL/uL (4.20-6.10); RED CELL DISTRIBUTION WIDTH 17.5 % (11.6-13.7); WHITE BLOOD COUNT (AUTO) 14.6 K/uL (4.8-10.8)
[2021-03-26] MEDS: ALBUTEROL SULFATE/IPRATROPIU 3 ML SOL IH SCH ×3 (07:32→19:30)
[2021-03-26 07:48] LABS: ANION GAP 21.1 (8-16); CARBON DIOXIDE 17.9 mmol/L (21-32); CREATININE 0.4 mg/dL (0.6-1.3)
[2021-03-26] MEDS ORDERED: COMMUNICATION ORDER MC SCH (09:00)
[2021-03-26] MEDS ORDERED: PANTOPRAZOLE 40 MG TABEC PO SCH (09:00)
[2021-03-26] MEDS: PROPOFOL 1000 MG/100 ML PREMIX 100 ML IV SCH ×2 (09:01→21:12)
[2021-03-26] MEDS ORDERED: CRUSHER, PILL MC ONE (09:33)
[2021-03-26] MEDS: ZINC SULF 220 MG CAP PO SCH (09:48)
[2021-03-26] MEDS: ASCORBIC ACID 500 MG TAB PO SCH (09:48)
[2021-03-26] MEDS ORDERED: ACETAMINOPHEN 650 MG/20.3 ML UDC GT SCH (11:30)
[2021-03-26] MEDS ORDERED: diphenhydrAMINE 50 MG/ML VIAL IVP SCH (11:30)
[2021-03-26] MEDS ORDERED: methylPREDNISolone SS 40 MG/ML VIAL IVP SCH (11:30)
[2021-03-26] MEDS: TOCILIZUMAB IV SCH ×2 (12:00→17:59)
[2021-03-26] MEDS: NACL 0.9% IV SCH ×2 (12:00→17:59)
[2021-03-26] MEDS ORDERED: remdesivir CLINICAL MONITORING 1 EA MISC MC PRN (13:45)
[2021-03-26] MEDS ORDERED: REMDESIVIR. 200 MG in NACL 0.9% 100 ML IV SCH (18:00)
[2021-03-27] VITALS (20 sets, daily range): BP systolic 91–155; BP diastolic 60–103
[2021-03-27] MEDS: ALBUTEROL SULFATE/IPRATROPIU 3 ML SOL IH SCH ×3 (01:00→14:17)
[2021-03-27] MEDS: DEXT 5% /NACL 0.9% 1,000 ML IV SCH ×3 (02:34→14:00)
[2021-03-27] MEDS ORDERED: NOREPINEPHRINE 4 MG/4 ML VIAL IV ONE (04:38)
[2021-03-27] MEDS: PIPERACILLIN/TAZOBACTAM 3.375 GM in DEXTROSE 5% 50 ML IV SCH ×3 (05:03→21:43)
[2021-03-27] MEDS: methylPREDNISolone SS 40 MG/ML VIAL IVP SCH ×3 (05:03→21:43)
[2021-03-27 06:42] LABS: ANION GAP 16.1 (8-16); CARBON DIOXIDE 24.7 mmol/L (21-32); CREATININE 0.7 mg/dL (0.6-1.3); POTASSIUM 3.8 mmol/L (3.5-5.1)
[2021-03-27 06:43] LABS: BASOPHILS % (AUTO) 0.1 % (0.0-2.0); HEMATOCRIT 31.9 % (36-52); HEMOGLOBIN 10.7 g/dL (12.0-18.0); LYMPHOCYTES # (AUTO) 0.9 K/uL (2.0-11.5); LYMPHOCYTES % (AUTO) 11.1 % (20.5-51.1); MEAN CORPUSCULAR HEMOGLOBIN 32 pg (27-31); MEAN CORPUSCULAR HGB CONC 33 g/dL (33-37); MEAN CORPUSCULAR VOLUME 94.7 fL (80-94); MONOCYTES # (AUTO) 0.6 K/uL (0.8-1.0); MONOCYTES % (AUTO) 7.9 % (1.7-9.3); NEUTROPHILS # (AUTO) 6.6 K/uL (1.8-7.7); NEUTROPHILS % (AUTO) 80.9 % (42.2-75.2); PLATELET COUNT (AUTO) 251 K/uL (140-450); RED BLOOD CELL COUNT(AUTO) 3.37 MIL/uL (4.20-6.10); RED CELL DISTRIBUTION WIDTH 17.7 % (11.6-13.7); WHITE BLOOD COUNT (AUTO) 8.2 K/uL (4.8-10.8)
[2021-03-27 06:46] LABS: ALBUMIN 1.5 g/dL (3.4-5.0); BILIRUBIN,DIRECT 0.4 mg/dL (0.0-0.3); TOTAL BILIRUBIN 0.6 mg/dL (0.0-1.0)
[2021-03-27] MEDS: PROPOFOL 1000 MG/100 ML PREMIX 100 ML IV SCH (06:55)
[2021-03-27 07:07] LABS: T4 (THYROXINE) 5.5 ug/dL (4.5-12.0)
[2021-03-27] MEDS: PANTOPRAZOLE 40 MG INJ VIAL IVP SCH (09:43)
[2021-03-27] MEDS: ZINC SULF 220 MG CAP PO SCH (09:43)
[2021-03-27] MEDS: ASCORBIC ACID 500 MG TAB PO SCH (09:43)
[2021-03-27] MEDS: GAUZE TP SCH (12:56)
[2021-03-27] MEDS: FOAM DRESSING TP SCH (12:56)
[2021-03-27] MEDS: Z-GUARD PASTE TP SCH (12:57)
[2021-03-27] MEDS: NYSTATIN POW 100 MU/GM 15 GM BTL TP SCH (12:57)
[2021-03-27] MEDS: REMDESIVIR. 100 MG in NACL 0.9% 100 ML IV SCH (18:50)
[2021-03-27] MEDS ORDERED: PIPERACILLIN/TAZOBACTAM 3.375 GM VIAL IV ONE (21:21)
[2021-03-28] VITALS (25 sets, daily range): BP systolic 127–170; BP diastolic 77–112
[2021-03-28] MEDS: LORazepam 2 MG/ML VIAL IM/IVP PRN ×2 (00:30→16:12)
[2021-03-28] MEDS: NYSTATIN POW 100 MU/GM 15 GM BTL TP SCH ×2 (01:00→13:00)
[2021-03-28 04:38] LABS: APPEARANCE,URINE HAZY (CLEAR); BILIRUBIN,URINE NEGATIVE (NEGATIVE); BLOOD, URINE 1+ (NEGATIVE); COLOR,URINE YELLOW (YELLOW); LEUKOCYTE ESTERASE ,URINE NEGATIVE (NEGATIVE); NITRITE, URINE NEGATIVE (NEGATIVE); UGLUCOSE NEGATIVE (NEGATIVE)
[2021-03-28] MEDS: PIPERACILLIN/TAZOBACTAM 3.375 GM in DEXTROSE 5% 50 ML IV SCH ×3 (04:39→20:06)
[2021-03-28] MEDS: methylPREDNISolone SS 40 MG/ML VIAL IVP SCH ×3 (04:40→20:06)
[2021-03-28 05:17] LABS: WBC,URINE 0-5 /HPF (0-5)
[2021-03-28 05:22] LABS: BARBITURATE, URINE NEGATIVE ng/ml (NEG <=200); BENZODIAZEPINE, URINE POSITIVE ng/mL (NEG <=200); CANNABINOID, URINE NEGATIVE ng/mL (NEG <=50); COCAINE, URINE POSITIVE ng/mL (NEG <=300); OPIATE, URINE NEGATIVE ng/mL (NEG <=2000); PHENCYCLIDINE SCREEN,URINE NEGATIVE ng/mL (NEG <=25)
[2021-03-28 06:34] LABS: BASOPHILS % (AUTO) 0.2 % (0.0-2.0); HEMATOCRIT 33.4 % (36-52); HEMOGLOBIN 11.1 g/dL (12.0-18.0); LYMPHOCYTES # (AUTO) 0.7 K/uL (2.0-11.5); LYMPHOCYTES % (AUTO) 6.8 % (20.5-51.1); MEAN CORPUSCULAR HEMOGLOBIN 31 pg (27-31); MEAN CORPUSCULAR HGB CONC 33 g/dL (33-37); MEAN CORPUSCULAR VOLUME 94.3 fL (80-94); MONOCYTES # (AUTO) 0.5 K/uL (0.8-1.0); MONOCYTES % (AUTO) 4.8 % (1.7-9.3); NEUTROPHILS # (AUTO) 9.6 K/uL (1.8-7.7); NEUTROPHILS % (AUTO) 88.2 % (42.2-75.2); PLATELET COUNT (AUTO) 223 K/uL (140-450); RED BLOOD CELL COUNT(AUTO) 3.54 MIL/uL (4.20-6.10); WHITE BLOOD COUNT (AUTO) 10.9 K/uL (4.8-10.8)
[2021-03-28 06:48] LABS: ANION GAP 15.2 (8-16); CARBON DIOXIDE 23.1 mmol/L (21-32); CREATININE 0.6 mg/dL (0.6-1.3); POTASSIUM 3.3 mmol/L (3.5-5.1)
[2021-03-28 07:04] LABS: ALBUMIN 1.5 g/dL (3.4-5.0); BILIRUBIN,DIRECT 0.4 mg/dL (0.0-0.3); TOTAL BILIRUBIN 0.6 mg/dL (0.0-1.0)
[2021-03-28] MEDS: DEXT 5% /NACL 0.9% 1,000 ML IV SCH ×2 (07:30→16:48)
[2021-03-28] MEDS: ZINC SULF 220 MG CAP PO SCH (09:00)
[2021-03-28] MEDS: ASCORBIC ACID 500 MG TAB PO SCH (09:00)
[2021-03-28] MEDS: PANTOPRAZOLE 40 MG INJ VIAL IVP SCH (09:12)
[2021-03-28] MEDS: GAUZE TP SCH (13:00)
[2021-03-28] MEDS: Z-GUARD PASTE TP SCH (13:00)
[2021-03-28] MEDS ORDERED: DEXMEDETOMIDINE HCL 400 MCG in NACL 0.9% 96 ML IV PRN (16:40)
[2021-03-28] MEDS: REMDESIVIR. 100 MG in NACL 0.9% 100 ML IV SCH (17:57)
[2021-03-28] MEDS: ALBUTEROL SULFATE/IPRATROPIU 3 ML SOL IH SCH (20:10)
[2021-03-29] VITALS (12 sets, daily range): BP systolic 117–170; BP diastolic 70–107
[2021-03-29] MEDS: NYSTATIN POW 100 MU/GM 15 GM BTL TP SCH ×2 (01:00→13:00)
[2021-03-29] MEDS: ALBUTEROL SULFATE/IPRATROPIU 3 ML SOL IH SCH ×4 (01:17→20:30)
[2021-03-29] MEDS: PIPERACILLIN/TAZOBACTAM 3.375 GM in DEXTROSE 5% 50 ML IV SCH ×3 (04:52→20:44)
[2021-03-29] MEDS: methylPREDNISolone SS 40 MG/ML VIAL IVP SCH ×3 (04:52→20:44)
[2021-03-29] MEDS: DEXT 5% /NACL 0.9% 1,000 ML IV SCH ×3 (05:02→21:32)
[2021-03-29 07:24] LABS: BASOPHILS % (AUTO) 0.2 % (0.0-2.0); HEMATOCRIT 32.6 % (36-52); HEMOGLOBIN 10.9 g/dL (12.0-18.0); LYMPHOCYTES # (AUTO) 0.7 K/uL (2.0-11.5); LYMPHOCYTES % (AUTO) 7.7 % (20.5-51.1); MEAN CORPUSCULAR HEMOGLOBIN 32 pg (27-31); MEAN CORPUSCULAR HGB CONC 34 g/dL (33-37); MEAN CORPUSCULAR VOLUME 94.4 fL (80-94); MONOCYTES # (AUTO) 0.6 K/uL (0.8-1.0); MONOCYTES % (AUTO) 5.8 % (1.7-9.3); NEUTROPHILS # (AUTO) 8.3 K/uL (1.8-7.7); NEUTROPHILS % (AUTO) 86.3 % (42.2-75.2); PLATELET COUNT (AUTO) 198 K/uL (140-450); RED BLOOD CELL COUNT(AUTO) 3.46 MIL/uL (4.20-6.10); RED CELL DISTRIBUTION WIDTH 17.6 % (11.6-13.7); WHITE BLOOD COUNT (AUTO) 9.6 K/uL (4.8-10.8)
[2021-03-29 07:32] LABS: ALBUMIN 1.5 g/dL (3.4-5.0); BILIRUBIN,DIRECT 0.4 mg/dL (0.0-0.3); TOTAL BILIRUBIN 0.6 mg/dL (0.0-1.0)
[2021-03-29 07:33] LABS: CARBON DIOXIDE 22.6 mmol/L (21-32); CREATININE 0.7 mg/dL (0.6-1.3)
[2021-03-29 07:34] LABS: POTASSIUM 2.6 mmol/L (3.5-5.1)
[2021-03-29] MEDS ORDERED: KCL 20 MEQ/WATER INJ PREMIX 200 ML IV ONE ×5 (09:05→13:00)
[2021-03-29] MEDS: ASCORBIC ACID 500 MG TAB PO SCH (09:37)
[2021-03-29] MEDS: PANTOPRAZOLE 40 MG INJ VIAL IVP SCH (09:37)
[2021-03-29] MEDS: ZINC SULF 220 MG CAP PO SCH (09:38)
[2021-03-29] MEDS: Z-GUARD PASTE TP SCH (13:00)
[2021-03-29] MEDS: GAUZE TP SCH (13:00)
[2021-03-29] MEDS: ACETYLCYSTEINE 10% (100 MG/ML) 100 MG/ML VIAL INH SCH ×2 (13:35→20:30)
[2021-03-29] MEDS: REMDESIVIR. 100 MG in NACL 0.9% 100 ML IV SCH (18:00)
[2021-03-29 21:30] LABS: ANION GAP 13.7 (8-16); CARBON DIOXIDE 20.5 mmol/L (21-32); CREATININE 0.7 mg/dL (0.6-1.3); POTASSIUM 3.2 mmol/L (3.5-5.1)
[2021-03-29] MEDS: POTASSIUM CHLORIDE 20% 40 MEQ/15 ML UDC GT PRN (23:54)
[2021-03-30] VITALS (8 sets, daily range): BP systolic 130–161; BP diastolic 77–105
[2021-03-30] MEDS: ACETYLCYSTEINE 10% (100 MG/ML) 100 MG/ML VIAL INH SCH ×4 (00:56→19:42)
[2021-03-30] MEDS: ALBUTEROL SULFATE/IPRATROPIU 3 ML SOL IH SCH ×4 (00:57→19:42)
[2021-03-30] MEDS: NYSTATIN POW 100 MU/GM 15 GM BTL TP SCH ×2 (01:31→13:29)
[2021-03-30] MEDS: DEXT 5% /NACL 0.9% 1,000 ML IV SCH ×3 (01:51→23:30)
[2021-03-30] MEDS: methylPREDNISolone SS 40 MG/ML VIAL IVP SCH ×3 (05:14→21:00)
[2021-03-30] MEDS: PIPERACILLIN/TAZOBACTAM 3.375 GM in DEXTROSE 5% 50 ML IV SCH ×3 (05:14→21:00)
[2021-03-30 07:17] LABS: ANION GAP 13.2 (8-16); CARBON DIOXIDE 21.8 mmol/L (21-32); CREATININE 0.7 mg/dL (0.6-1.3)
[2021-03-30 07:23] LABS: ALBUMIN 1.5 g/dL (3.4-5.0); BILIRUBIN,DIRECT 0.3 mg/dL (0.0-0.3); TOTAL BILIRUBIN 0.6 mg/dL (0.0-1.0)
[2021-03-30 07:29] LABS: HEMATOCRIT 33.9 % (36-52); MEAN CORPUSCULAR HEMOGLOBIN 31 pg (27-31); MEAN CORPUSCULAR HGB CONC 32 g/dL (33-37); MEAN CORPUSCULAR VOLUME 96.1 fL (80-94); PLATELET COUNT (AUTO) 177 K/uL (140-450); RED BLOOD CELL COUNT(AUTO) 3.53 MIL/uL (4.20-6.10); RED CELL DISTRIBUTION WIDTH 18.5 % (11.6-13.7); WHITE BLOOD COUNT (AUTO) 13.4 K/uL (4.8-10.8)
[2021-03-30] MEDS: PANTOPRAZOLE 40 MG INJ VIAL IVP SCH (08:51)
[2021-03-30] MEDS: ZINC SULF 220 MG CAP PO SCH (08:52)
[2021-03-30] MEDS: ASCORBIC ACID 500 MG TAB PO SCH (08:53)
[2021-03-30] MEDS: FOAM DRESSING TP SCH (09:02)
[2021-03-30] MEDS: GAUZE TP SCH (13:29)
[2021-03-30] MEDS: Z-GUARD PASTE TP SCH (13:29)
[2021-03-30 13:42] LABS: LYMPHOCYTES % (MANUAL) 9 % (20-46); MONOCYTES % (MANUAL) 6 % (5-12)
[2021-03-30 13:44] LABS: MYELOCYTES % 2 % (0-0)
[2021-03-30] MEDS: REMDESIVIR. 100 MG in NACL 0.9% 100 ML IV SCH (18:35)
[2021-03-30] MEDS: PROPOFOL 1000 MG/100 ML PREMIX 100 ML IV SCH (23:30)
[2021-03-31] VITALS (22 sets, daily range): BP systolic 93–144; BP diastolic 51–89
[2021-03-31] MEDS: NYSTATIN POW 100 MU/GM 15 GM BTL TP SCH ×2 (01:00→12:23)
[2021-03-31] MEDS: PROPOFOL 1000 MG/100 ML PREMIX 100 ML IV SCH ×3 (03:10→20:14)
[2021-03-31] MEDS: ACETYLCYSTEINE 10% (100 MG/ML) 100 MG/ML VIAL INH SCH ×4 (03:34→19:43)
[2021-03-31] MEDS: ALBUTEROL SULFATE/IPRATROPIU 3 ML SOL IH SCH ×4 (03:34→19:43)
[2021-03-31] MEDS: methylPREDNISolone SS 40 MG/ML VIAL IVP SCH ×3 (05:00→20:27)
[2021-03-31] MEDS: PIPERACILLIN/TAZOBACTAM 3.375 GM in DEXTROSE 5% 50 ML IV SCH ×3 (05:00→20:27)
[2021-03-31 05:56] LABS: ANION GAP 11.1 (8-16); CARBON DIOXIDE 21.8 mmol/L (21-32); CREATININE 0.6 mg/dL (0.6-1.3); POTASSIUM 3.9 mmol/L (3.5-5.1)
[2021-03-31 06:46] LABS: HEMATOCRIT 24.7 % (36-52); HEMOGLOBIN 8.1 g/dL (12.0-18.0); MEAN CORPUSCULAR HEMOGLOBIN 32 pg (27-31); MEAN CORPUSCULAR HGB CONC 33 g/dL (33-37); MEAN CORPUSCULAR VOLUME 97.7 fL (80-94); PLATELET COUNT (AUTO) 89 K/uL (140-450); RED BLOOD CELL COUNT(AUTO) 2.53 MIL/uL (4.20-6.10); RED CELL DISTRIBUTION WIDTH 17.9 % (11.6-13.7); WHITE BLOOD COUNT (AUTO) 8.3 K/uL (4.8-10.8)
[2021-03-31] MEDS ORDERED: ACETYLCYSTEINE 10% (100 MG/ML) 100 MG/ML VIAL ONE (07:22)
[2021-03-31] MEDS: PANTOPRAZOLE 40 MG INJ VIAL IVP SCH (08:51)
[2021-03-31] MEDS: ZINC SULF 220 MG CAP PO SCH (08:51)
[2021-03-31] MEDS: ASCORBIC ACID 500 MG TAB PO SCH (08:51)
[2021-03-31 12:18] LABS: EOSINOPHILS % (MANUAL) 1 % (0-4); LYMPHOCYTES % (MANUAL) 10 % (20-46); MONOCYTES % (MANUAL) 9 % (5-12)
[2021-03-31] MEDS: GAUZE TP SCH (12:23)
[2021-03-31] MEDS: Z-GUARD PASTE TP SCH (12:23)
[2021-03-31 12:52] LABS: PROTHROMBIN TIME 11.7 secs (10.8-13.4)
[2021-03-31] MEDS: DEXT 5% / NACL 0.45% 1,000 ML IV SCH (13:49)
[2021-04-01] VITALS (21 sets, daily range): BP systolic 77–122; BP diastolic 51–78
[2021-04-01] MEDS: ALBUTEROL SULFATE/IPRATROPIU 3 ML SOL IH SCH ×4 (00:28→19:30)
[2021-04-01] MEDS: ACETYLCYSTEINE 10% (100 MG/ML) 100 MG/ML VIAL INH SCH ×4 (00:28→19:30)
[2021-04-01] MEDS: PROPOFOL 1000 MG/100 ML PREMIX 100 ML IV SCH ×2 (01:47→16:15)
[2021-04-01] MEDS: DEXT 5% / NACL 0.45% 1,000 ML IV SCH ×2 (03:48→19:58)
[2021-04-01] MEDS: methylPREDNISolone SS 40 MG/ML VIAL IVP SCH ×3 (05:14→21:40)
[2021-04-01] MEDS: PIPERACILLIN/TAZOBACTAM 3.375 GM in DEXTROSE 5% 50 ML IV SCH ×3 (05:14→21:41)
[2021-04-01 06:55] LABS: BASOPHILS % (AUTO) 0.2 % (0.0-2.0); HEMATOCRIT 28.4 % (36-52); HEMOGLOBIN 9.4 g/dL (12.0-18.0); LYMPHOCYTES # (AUTO) 1.3 K/uL (2.0-11.5); LYMPHOCYTES % (AUTO) 11.2 % (20.5-51.1); MEAN CORPUSCULAR HEMOGLOBIN 32 pg (27-31); MEAN CORPUSCULAR HGB CONC 33 g/dL (33-37); MEAN CORPUSCULAR VOLUME 96.7 fL (80-94); MONOCYTES # (AUTO) 0.5 K/uL (0.8-1.0); MONOCYTES % (AUTO) 4.3 % (1.7-9.3); NEUTROPHILS # (AUTO) 10.1 K/uL (1.8-7.7); NEUTROPHILS % (AUTO) 84.3 % (42.2-75.2); PLATELET COUNT (AUTO) 95 K/uL (140-450); RED BLOOD CELL COUNT(AUTO) 2.94 MIL/uL (4.20-6.10); RED CELL DISTRIBUTION WIDTH 18.5 % (11.6-13.7)
[2021-04-01 07:01] LABS: CARBON DIOXIDE 22.7 mmol/L (21-32); CREATININE 0.7 mg/dL (0.6-1.3); MAGNESIUM 1.4 mg/dL (1.8-2.4); PHOSPHORUS 3.2 mg/dL (2.5-4.9); POTASSIUM 3.7 mmol/L (3.5-5.1)
[2021-04-01] MEDS: PANTOPRAZOLE 40 MG INJ VIAL IVP SCH (08:41)
[2021-04-01] MEDS: ASCORBIC ACID 500 MG TAB PO SCH (08:41)
[2021-04-01] MEDS: ZINC SULF 220 MG CAP PO SCH (08:42)
[2021-04-01] MEDS: GAUZE TP SCH (13:00)
[2021-04-01] MEDS: Z-GUARD PASTE TP SCH (13:00)
[2021-04-01] MEDS ORDERED: SODIUM PHOS / POTASSIUM PHOS 1 PKT PDR PO SCH (17:00)
[2021-04-02] VITALS (26 sets, daily range): BP systolic 76–125; BP diastolic 52–76
[2021-04-02] MEDS: ACETYLCYSTEINE 10% (100 MG/ML) 100 MG/ML VIAL INH SCH ×4 (00:29→20:36)
[2021-04-02] MEDS: ALBUTEROL SULFATE/IPRATROPIU 3 ML SOL IH SCH ×4 (00:29→20:36)
[2021-04-02] MEDS: PROPOFOL 1000 MG/100 ML PREMIX 100 ML IV SCH ×2 (00:52→09:31)
[2021-04-02 03:04] LABS: GLUCOSE,BODY FLUID 145 mg/dL
[2021-04-02 03:05] LABS: APPEARANCE,SPUN,BODY FLUID CLEAR (CLEAR); APPEARANCE,UNSPUN,BODY FLUID CLEAR (CLEAR); SPECIMENTYPE,BODY FLUID THORACENTESIS
[2021-04-02 03:06] LABS: COLOR,BODY FLUID LT YELLOW (LT YELLOW)
[2021-04-02 03:07] LABS: ALBUMIN,BODY FLUID 0.2 g/dL; LDH,BODY FLUID 128 U/L; TOTAL VOLUME,BODY FLUID 500 mL
[2021-04-02 03:52] LABS: RBC, BODY FLUID 5 /cu. mm.; WBC, BODY FLUID 5 /cu. mm.
[2021-04-02] MEDS: PIPERACILLIN/TAZOBACTAM 3.375 GM in DEXTROSE 5% 50 ML IV SCH ×3 (05:23→20:53)
[2021-04-02] MEDS: methylPREDNISolone SS 40 MG/ML VIAL IVP SCH ×3 (05:24→20:53)
[2021-04-02] MEDS ORDERED: NOREPINEPHRINE 4 MG/4 ML VIAL IV ONE (05:30)
[2021-04-02] MEDS: NOREPINEPHRINE 4 MG in DEXTROSE 5% 250 ML IV PRN ×2 (05:41→22:44)
[2021-04-02 06:45] LABS: BASOPHILS % (AUTO) 0.1 % (0.0-2.0); HEMATOCRIT 29.4 % (36-52); HEMOGLOBIN 9.6 g/dL (12.0-18.0); LYMPHOCYTES # (AUTO) 1.3 K/uL (2.0-11.5); MEAN CORPUSCULAR HEMOGLOBIN 31 pg (27-31); MEAN CORPUSCULAR HGB CONC 33 g/dL (33-37); MEAN CORPUSCULAR VOLUME 96.6 fL (80-94); MONOCYTES # (AUTO) 0.4 K/uL (0.8-1.0); MONOCYTES % (AUTO) 3.5 % (1.7-9.3); NEUTROPHILS # (AUTO) 10.9 K/uL (1.8-7.7); NEUTROPHILS % (AUTO) 86.4 % (42.2-75.2); PLATELET COUNT (AUTO) 104 K/uL (140-450); RED BLOOD CELL COUNT(AUTO) 3.04 MIL/uL (4.20-6.10); RED CELL DISTRIBUTION WIDTH 17.9 % (11.6-13.7); WHITE BLOOD COUNT (AUTO) 12.6 K/uL (4.8-10.8)
[2021-04-02 07:17] LABS: ANION GAP 14.7 (8-16); CREATININE 0.8 mg/dL (0.6-1.3); POTASSIUM 3.7 mmol/L (3.5-5.1)
[2021-04-02 07:29] LABS: MAGNESIUM 1.6 mg/dL (1.8-2.4); PHOSPHORUS 3.6 mg/dL (2.5-4.9)
[2021-04-02] MEDS: PANTOPRAZOLE 40 MG INJ VIAL IVP SCH (09:02)
[2021-04-02] MEDS: FOAM DRESSING TP SCH (09:03)
[2021-04-02] MEDS: ZINC SULF 220 MG CAP PO SCH (09:51)
[2021-04-02] MEDS: ASCORBIC ACID 500 MG TAB PO SCH (09:51)
[2021-04-02] MEDS: DEXT 5% / NACL 0.45% 1,000 ML IV SCH ×2 (12:05→12:54)
[2021-04-02] MEDS: GAUZE TP SCH (13:00)
[2021-04-02] MEDS ORDERED: MAGNESIUM OXIDE 400 MG TAB NG SCH (13:00)
[2021-04-02] MEDS: Z-GUARD PASTE TP SCH (13:00)
[2021-04-02] MEDS: PROPOFOL 1000 MG/100 ML PREMIX 100 ML IV PRN ×2 (18:17→22:50)
[2021-04-03] VITALS (25 sets, daily range): BP systolic 89–141; BP diastolic 50–87
[2021-04-03] MEDS: ACETYLCYSTEINE 10% (100 MG/ML) 100 MG/ML VIAL INH SCH ×2 (01:31→07:05)
[2021-04-03] MEDS: ALBUTEROL SULFATE/IPRATROPIU 3 ML SOL IH SCH ×2 (01:31→07:10)
[2021-04-03] MEDS: PIPERACILLIN/TAZOBACTAM 3.375 GM in DEXTROSE 5% 50 ML IV SCH ×3 (05:00→20:40)
[2021-04-03] MEDS: methylPREDNISolone SS 40 MG/ML VIAL IVP SCH ×2 (05:00→12:24)
[2021-04-03 06:52] LABS: ANION GAP 12.4 (8-16); CARBON DIOXIDE 22.9 mmol/L (21-32); CREATININE 0.7 mg/dL (0.6-1.3); POTASSIUM 4.3 mmol/L (3.5-5.1)
[2021-04-03] MEDS: PROPOFOL 1000 MG/100 ML PREMIX 100 ML IV PRN ×2 (07:03→20:36)
[2021-04-03 07:05] LABS: MAGNESIUM 2.1 mg/dL (1.8-2.4)
[2021-04-03 07:11] LABS: BASOPHILS # (AUTO) 0.1 K/uL (0.00-0.22); BASOPHILS % (AUTO) 0.7 % (0.0-2.0); HEMATOCRIT 35.9 % (36-52); HEMOGLOBIN 11.4 g/dL (12.0-18.0); LYMPHOCYTES # (AUTO) 0.8 K/uL (2.0-11.5); LYMPHOCYTES % (AUTO) 3.7 % (20.5-51.1); MEAN CORPUSCULAR HEMOGLOBIN 31 pg (27-31); MEAN CORPUSCULAR HGB CONC 32 g/dL (33-37); MEAN CORPUSCULAR VOLUME 98.2 fL (80-94); MONOCYTES # (AUTO) 1.5 K/uL (0.8-1.0); MONOCYTES % (AUTO) 7.1 % (1.7-9.3); NEUTROPHILS % (AUTO) 88.5 % (42.2-75.2); PLATELET COUNT (AUTO) 175 K/uL (140-450); RED BLOOD CELL COUNT(AUTO) 3.66 MIL/uL (4.20-6.10); RED CELL DISTRIBUTION WIDTH 18.6 % (11.6-13.7); WHITE BLOOD COUNT (AUTO) 21.5 K/uL (4.8-10.8)
[2021-04-03] MEDS: MAGNESIUM OXIDE 400 MG TAB NG SCH (09:01)
[2021-04-03] MEDS: ASCORBIC ACID 500 MG TAB PO SCH (09:02)
[2021-04-03] MEDS: ZINC SULF 220 MG CAP PO SCH (09:02)
[2021-04-03] MEDS: PANTOPRAZOLE 40 MG INJ VIAL IVP SCH (09:03)
[2021-04-03] MEDS: Z-GUARD PASTE TP SCH (12:24)
[2021-04-03] MEDS: GAUZE TP SCH (12:24)
[2021-04-03] MEDS: FUROSEMIDE 20 MG/2 ML VIAL IVP SCH (20:32)
[2021-04-03] MEDS ORDERED: NOREPINEPHRINE 4 MG/4 ML VIAL IV ONE (22:44)
[2021-04-04] VITALS (25 sets, daily range): BP systolic 88–125; BP diastolic 53–75
[2021-04-04] MEDS ORDERED: NOREPINEPHRINE 8 MG in DEXTROSE 5% 250 ML IV PRN (00:40)
[2021-04-04] MEDS: NOREPINEPHRINE 8 MG in DEXTROSE 5% 250 ML IV PRN (01:38)
[2021-04-04] MEDS: PIPERACILLIN/TAZOBACTAM 3.375 GM in DEXTROSE 5% 50 ML IV SCH ×3 (05:32→20:09)
[2021-04-04] MEDS: PROPOFOL 1000 MG/100 ML PREMIX 100 ML IV PRN ×3 (05:35→22:05)
[2021-04-04 06:53] LABS: CARBON DIOXIDE 25.7 mmol/L (21-32); CREATININE 0.7 mg/dL (0.6-1.3); POTASSIUM 3.7 mmol/L (3.5-5.1)
[2021-04-04] MEDS ORDERED: ACETYLCYSTEINE 10% (100 MG/ML) 100 MG/ML VIAL ONE (06:57)
[2021-04-04] MEDS: ALBUTEROL SULFATE/IPRATROPIU 3 ML SOL IH SCH ×3 (07:00→19:15)
[2021-04-04] MEDS: ACETYLCYSTEINE 10% (100 MG/ML) 100 MG/ML VIAL INH SCH ×3 (07:00→19:15)
[2021-04-04 07:08] LABS: BASOPHILS # (AUTO) 0.1 K/uL (0.00-0.22); BASOPHILS % (AUTO) 0.7 % (0.0-2.0); EOSINOPHILS % (AUTO) 0.1 % (0.0-4.0); HEMATOCRIT 28.8 % (36-52); HEMOGLOBIN 9.2 g/dL (12.0-18.0); LYMPHOCYTES % (AUTO) 13.4 % (20.5-51.1); MEAN CORPUSCULAR HEMOGLOBIN 31 pg (27-31); MEAN CORPUSCULAR HGB CONC 32 g/dL (33-37); MEAN CORPUSCULAR VOLUME 96.1 fL (80-94); MONOCYTES # (AUTO) 1.8 K/uL (0.8-1.0); MONOCYTES % (AUTO) 12.5 % (1.7-9.3); NEUTROPHILS # (AUTO) 10.7 K/uL (1.8-7.7); NEUTROPHILS % (AUTO) 73.3 % (42.2-75.2); PLATELET COUNT (AUTO) 120 K/uL (140-450); RED CELL DISTRIBUTION WIDTH 18.6 % (11.6-13.7); WHITE BLOOD COUNT (AUTO) 14.6 K/uL (4.8-10.8)
[2021-04-04] MEDS: DEXT 5% / NACL 0.45% 1,000 ML IV SCH (08:24)
[2021-04-04] MEDS: FUROSEMIDE 20 MG/2 ML VIAL IVP SCH (10:42)
[2021-04-04] MEDS: PANTOPRAZOLE 40 MG INJ VIAL IVP SCH (10:42)
[2021-04-04] MEDS: methylPREDNISolone SS 40 MG/ML VIAL IVP SCH (10:43)
[2021-04-04] MEDS: ASCORBIC ACID 500 MG TAB PO SCH (10:44)
[2021-04-04] MEDS: ZINC SULF 220 MG CAP PO SCH (10:44)
[2021-04-04] MEDS: MAGNESIUM OXIDE 400 MG TAB NG SCH (10:45)
[2021-04-04] MEDS: Z-GUARD PASTE TP SCH (13:08)
[2021-04-04] MEDS: GAUZE TP SCH (13:08)
[2021-04-04] MEDS ORDERED: FUROSEMIDE 20 MG/2 ML VIAL IVP SCH (21:00)
[2021-04-05] VITALS (28 sets, daily range): BP systolic 101–144; BP diastolic 56–88
[2021-04-05] MEDS: ALBUTEROL SULFATE/IPRATROPIU 3 ML SOL IH SCH ×4 (01:10→19:08)
[2021-04-05] MEDS: DEXT 5% / NACL 0.45% 1,000 ML IV SCH (02:43)
[2021-04-05] MEDS: PIPERACILLIN/TAZOBACTAM 3.375 GM in DEXTROSE 5% 50 ML IV SCH ×3 (05:10→20:25)
[2021-04-05] MEDS: PROPOFOL 1000 MG/100 ML PREMIX 100 ML IV PRN ×3 (06:30→21:39)
[2021-04-05] MEDS ORDERED: NOREPINEPHRINE 4 MG/4 ML VIAL IV ONE (06:37)
[2021-04-05 06:38] LABS: BASOPHILS # (AUTO) 0.1 K/uL (0.00-0.22); BASOPHILS % (AUTO) 0.4 % (0.0-2.0); EOSINOPHILS % (AUTO) 0.2 % (0.0-4.0); HEMATOCRIT 30.4 % (36-52); HEMOGLOBIN 9.9 g/dL (12.0-18.0); LYMPHOCYTES % (AUTO) 13.2 % (20.5-51.1); MEAN CORPUSCULAR HEMOGLOBIN 31 pg (27-31); MEAN CORPUSCULAR HGB CONC 33 g/dL (33-37); MEAN CORPUSCULAR VOLUME 96.1 fL (80-94); NEUTROPHILS # (AUTO) 11.2 K/uL (1.8-7.7); NEUTROPHILS % (AUTO) 73.2 % (42.2-75.2); PLATELET COUNT (AUTO) 119 K/uL (140-450); RED BLOOD CELL COUNT(AUTO) 3.16 MIL/uL (4.20-6.10); RED CELL DISTRIBUTION WIDTH 19.2 % (11.6-13.7); WHITE BLOOD COUNT (AUTO) 15.3 K/uL (4.8-10.8)
[2021-04-05 07:07] LABS: ANION GAP 11.2 (8-16); CARBON DIOXIDE 28.2 mmol/L (21-32); CREATININE 0.8 mg/dL (0.6-1.3); POTASSIUM 3.4 mmol/L (3.5-5.1)
[2021-04-05 07:20] LABS: MAGNESIUM 2.1 mg/dL (1.8-2.4); PHOSPHORUS 3.4 mg/dL (2.5-4.9)
[2021-04-05] MEDS: ACETYLCYSTEINE 10% (100 MG/ML) 100 MG/ML VIAL INH SCH ×4 (07:20→19:08)
[2021-04-05] MEDS: ASCORBIC ACID 500 MG TAB PO SCH (09:20)
[2021-04-05] MEDS: ZINC SULF 220 MG CAP PO SCH (09:20)
[2021-04-05] MEDS: MAGNESIUM OXIDE 400 MG TAB NG SCH (09:20)
[2021-04-05] MEDS: PANTOPRAZOLE 40 MG INJ VIAL IVP SCH (09:20)
[2021-04-05] MEDS: methylPREDNISolone SS 40 MG/ML VIAL IVP SCH (09:20)
[2021-04-05] MEDS: FOAM DRESSING TP SCH (09:20)
[2021-04-05] MEDS: POTASSIUM CHLORIDE 20% 40 MEQ/15 ML UDC GT PRN (09:50)
[2021-04-05] MEDS ORDERED: ACETYLCYSTEINE 10% (100 MG/ML) 100 MG/ML VIAL ONE (12:26)
[2021-04-05] MEDS: GAUZE TP SCH (12:30)
[2021-04-05] MEDS: Z-GUARD PASTE TP SCH (12:30)
[2021-04-05] MEDS: BUMETANIDE 1 MG/4 ML VIAL IV SCH (20:24)
[2021-04-06] VITALS (29 sets, daily range): BP systolic 92–158; BP diastolic 54–94
[2021-04-06] MEDS: ALBUTEROL SULFATE/IPRATROPIU 3 ML SOL IH SCH ×3 (01:00→19:59)
[2021-04-06] MEDS: PIPERACILLIN/TAZOBACTAM 3.375 GM in DEXTROSE 5% 50 ML IV SCH ×3 (04:57→20:26)
[2021-04-06] MEDS: PROPOFOL 1000 MG/100 ML PREMIX 100 ML IV PRN ×2 (06:09→14:38)
[2021-04-06 06:50] LABS: BASOPHILS % (AUTO) 0.2 % (0.0-2.0); EOSINOPHILS # (AUTO) 0.1 K/uL (0-0.4); EOSINOPHILS % (AUTO) 0.5 % (0.0-4.0); HEMATOCRIT 28.6 % (36-52); HEMOGLOBIN 9.2 g/dL (12.0-18.0); LYMPHOCYTES # (AUTO) 1.6 K/uL (2.0-11.5); LYMPHOCYTES % (AUTO) 11.3 % (20.5-51.1); MEAN CORPUSCULAR HEMOGLOBIN 31 pg (27-31); MEAN CORPUSCULAR HGB CONC 32 g/dL (33-37); MEAN CORPUSCULAR VOLUME 96.9 fL (80-94); MONOCYTES # (AUTO) 1.5 K/uL (0.8-1.0); MONOCYTES % (AUTO) 11.3 % (1.7-9.3); NEUTROPHILS # (AUTO) 10.6 K/uL (1.8-7.7); NEUTROPHILS % (AUTO) 76.7 % (42.2-75.2); PLATELET COUNT (AUTO) 114 K/uL (140-450); RED BLOOD CELL COUNT(AUTO) 2.95 MIL/uL (4.20-6.10); RED CELL DISTRIBUTION WIDTH 19.6 % (11.6-13.7); WHITE BLOOD COUNT (AUTO) 13.8 K/uL (4.8-10.8)
[2021-04-06 07:34] LABS: ANION GAP 9.9 (8-16); CREATININE 0.7 mg/dL (0.6-1.3); POTASSIUM 3.9 mmol/L (3.5-5.1)
[2021-04-06] MEDS: DEXT 5% / NACL 0.45% 1,000 ML IV SCH (09:24)
[2021-04-06] MEDS: PANTOPRAZOLE 40 MG INJ VIAL IVP SCH (09:34)
[2021-04-06] MEDS: BUMETANIDE 1 MG/4 ML VIAL IV SCH ×2 (09:34→20:24)
[2021-04-06] MEDS: MAGNESIUM OXIDE 400 MG TAB NG SCH (09:34)
[2021-04-06] MEDS: ASCORBIC ACID 500 MG TAB PO SCH (09:34)
[2021-04-06] MEDS: ZINC SULF 220 MG CAP PO SCH (09:34)
[2021-04-06] MEDS: methylPREDNISolone SS 40 MG/ML VIAL IVP SCH (09:34)
[2021-04-06] MEDS: NOREPINEPHRINE 8 MG in DEXTROSE 5% 250 ML IV PRN (12:56)
[2021-04-06] MEDS: Z-GUARD PASTE TP SCH (13:00)
[2021-04-06] MEDS: GAUZE TP SCH (13:00)
[2021-04-07] VITALS (32 sets, daily range): BP systolic 76–136; BP diastolic 52–95
[2021-04-07] MEDS: ALBUTEROL SULFATE/IPRATROPIU 3 ML SOL IH SCH ×4 (02:25→20:11)
[2021-04-07] MEDS ORDERED: NOREPINEPHRINE 4 MG/4 ML VIAL IV ONE ×2 (05:24→22:51)
[2021-04-07] MEDS: NOREPINEPHRINE 8 MG in DEXTROSE 5% 250 ML IV PRN ×2 (06:04→23:00)
[2021-04-07] MEDS: DEXT 5% / NACL 0.45% 1,000 ML IV SCH (08:24)
[2021-04-07] MEDS: BUMETANIDE 1 MG/4 ML VIAL IV SCH ×2 (09:20→20:22)
[2021-04-07] MEDS: PANTOPRAZOLE 40 MG INJ VIAL IVP SCH (09:22)
[2021-04-07] MEDS: methylPREDNISolone SS 40 MG/ML VIAL IVP SCH (09:22)
[2021-04-07] MEDS: ZINC SULF 220 MG CAP PO SCH (09:23)
[2021-04-07] MEDS: ASCORBIC ACID 500 MG TAB PO SCH (09:23)
[2021-04-07] MEDS: MAGNESIUM OXIDE 400 MG TAB NG SCH (09:26)
[2021-04-07] MEDS: PROPOFOL 1000 MG/100 ML PREMIX 100 ML IV PRN ×2 (10:50→23:00)
[2021-04-07 10:51] LABS: BASOPHILS # (AUTO) 0.1 K/uL (0.00-0.22); BASOPHILS % (AUTO) 0.5 % (0.0-2.0); EOSINOPHILS # (AUTO) 0.1 K/uL (0-0.4); EOSINOPHILS % (AUTO) 0.6 % (0.0-4.0); HEMATOCRIT 25.9 % (36-52); HEMOGLOBIN 8.6 g/dL (12.0-18.0); LYMPHOCYTES # (AUTO) 1.7 K/uL (2.0-11.5); LYMPHOCYTES % (AUTO) 11.5 % (20.5-51.1); MEAN CORPUSCULAR HEMOGLOBIN 32 pg (27-31); MEAN CORPUSCULAR HGB CONC 33 g/dL (33-37); MEAN CORPUSCULAR VOLUME 95.3 fL (80-94); MONOCYTES # (AUTO) 1.4 K/uL (0.8-1.0); MONOCYTES % (AUTO) 9.6 % (1.7-9.3); NEUTROPHILS # (AUTO) 11.4 K/uL (1.8-7.7); NEUTROPHILS % (AUTO) 77.8 % (42.2-75.2); PLATELET COUNT (AUTO) 122 K/uL (140-450); RED BLOOD CELL COUNT(AUTO) 2.72 MIL/uL (4.20-6.10); RED CELL DISTRIBUTION WIDTH 20.3 % (11.6-13.7); WHITE BLOOD COUNT (AUTO) 14.7 K/uL (4.8-10.8)
[2021-04-07 11:06] LABS: ALBUMIN 1.5 g/dL (3.4-5.0); ANION GAP 10.5 (8-16); CARBON DIOXIDE 32.5 mmol/L (21-32); CREATININE 0.7 mg/dL (0.6-1.3); MAGNESIUM 1.8 mg/dL (1.8-2.4); PHOSPHORUS 3.2 mg/dL (2.5-4.9); TOTAL BILIRUBIN 0.3 mg/dL (0.0-1.0)
[2021-04-07] MEDS: GAUZE TP SCH (12:08)
[2021-04-07] MEDS: Z-GUARD PASTE TP SCH (12:08)
[2021-04-07] MEDS: POTASSIUM CHLORIDE 20% 40 MEQ/15 ML UDC GT PRN (16:18)
[2021-04-08] VITALS (26 sets, daily range): BP systolic 95–139; BP diastolic 58–87
[2021-04-08] MEDS: ALBUTEROL SULFATE/IPRATROPIU 3 ML SOL IH SCH ×4 (01:38→19:00)
[2021-04-08] MEDS: PROPOFOL 1000 MG/100 ML PREMIX 100 ML IV PRN ×2 (07:15→21:25)
[2021-04-08] MEDS: DEXT 5% / NACL 0.45% 1,000 ML IV SCH ×2 (08:24→20:41)
[2021-04-08] MEDS: FOAM DRESSING TP SCH (08:30)
[2021-04-08] MEDS: PANTOPRAZOLE 40 MG INJ VIAL IVP SCH (08:35)
[2021-04-08] MEDS: MAGNESIUM OXIDE 400 MG TAB NG SCH (08:35)
[2021-04-08] MEDS: methylPREDNISolone SS 40 MG/ML VIAL IVP SCH (08:35)
[2021-04-08] MEDS: ASCORBIC ACID 500 MG TAB PO SCH (08:36)
[2021-04-08] MEDS: ZINC SULF 220 MG CAP PO SCH (08:36)
[2021-04-08] MEDS: Z-GUARD PASTE TP SCH (12:07)
[2021-04-08] MEDS: GAUZE TP SCH (12:07)
[2021-04-08] MEDS: NOREPINEPHRINE 8 MG in DEXTROSE 5% 250 ML IV PRN (12:30)
[2021-04-08] MEDS: POTASSIUM CHLORIDE 20% 40 MEQ/15 ML UDC GT PRN (20:40)
[2021-04-09] VITALS (25 sets, daily range): BP systolic 104–143; BP diastolic 50–78
[2021-04-09] MEDS: ALBUTEROL SULFATE/IPRATROPIU 3 ML SOL IH SCH ×3 (01:25→12:07)
[2021-04-09] MEDS ORDERED: NOREPINEPHRINE 4 MG/4 ML VIAL IV ONE (06:35)
[2021-04-09] MEDS: NOREPINEPHRINE 8 MG in DEXTROSE 5% 250 ML IV PRN (06:49)
[2021-04-09] MEDS: methylPREDNISolone SS 40 MG/ML VIAL IVP SCH (08:34)
[2021-04-09] MEDS: PANTOPRAZOLE 40 MG INJ VIAL IVP SCH (08:34)
[2021-04-09] MEDS: MAGNESIUM OXIDE 400 MG TAB NG SCH (08:35)
[2021-04-09] MEDS: ZINC SULF 220 MG CAP PO SCH (08:36)
[2021-04-09] MEDS: ASCORBIC ACID 500 MG TAB PO SCH (08:36)
[2021-04-09 09:01] LABS: BASOPHILS # (AUTO) 0.1 K/uL (0.00-0.22); BASOPHILS % (AUTO) 0.5 % (0.0-2.0); EOSINOPHILS # (AUTO) 0.2 K/uL (0-0.4); EOSINOPHILS % (AUTO) 1.7 % (0.0-4.0); HEMATOCRIT 22.6 % (36-52); HEMOGLOBIN 7.6 g/dL (12.0-18.0); LYMPHOCYTES # (AUTO) 1.5 K/uL (2.0-11.5); LYMPHOCYTES % (AUTO) 14.1 % (20.5-51.1); MEAN CORPUSCULAR HEMOGLOBIN 32 pg (27-31); MEAN CORPUSCULAR HGB CONC 34 g/dL (33-37); MEAN CORPUSCULAR VOLUME 95.5 fL (80-94); MONOCYTES # (AUTO) 0.8 K/uL (0.8-1.0); MONOCYTES % (AUTO) 7.4 % (1.7-9.3); NEUTROPHILS # (AUTO) 7.9 K/uL (1.8-7.7); NEUTROPHILS % (AUTO) 76.3 % (42.2-75.2); PLATELET COUNT (AUTO) 113 K/uL (140-450); RED BLOOD CELL COUNT(AUTO) 2.37 MIL/uL (4.20-6.10); RED CELL DISTRIBUTION WIDTH 21.1 % (11.6-13.7); WHITE BLOOD COUNT (AUTO) 10.3 K/uL (4.8-10.8)
[2021-04-09 09:16] LABS: ALBUMIN 1.4 g/dL (3.4-5.0); ANION GAP 5.3 (8-16); CARBON DIOXIDE 34.8 mmol/L (21-32); CREATININE 0.7 mg/dL (0.6-1.3); MAGNESIUM 1.9 mg/dL (1.8-2.4); PHOSPHORUS 3.1 mg/dL (2.5-4.9); POTASSIUM 3.1 mmol/L (3.5-5.1); TOTAL BILIRUBIN 0.3 mg/dL (0.0-1.0)
[2021-04-09] MEDS: PROPOFOL 1000 MG/100 ML PREMIX 100 ML IV PRN (11:42)
[2021-04-09] MEDS: Z-GUARD PASTE TP SCH (12:04)
[2021-04-09] MEDS: GAUZE TP SCH (12:04)
[2021-04-09] MEDS: POTASSIUM CHLORIDE 20% 40 MEQ/15 ML UDC GT PRN (12:52)
[2021-04-10] VITALS (28 sets, daily range): BP systolic 92–136; BP diastolic 46–76
[2021-04-10] MEDS ORDERED: NOREPINEPHRINE 4 MG/4 ML VIAL IV ONE (04:06)
[2021-04-10] MEDS: NOREPINEPHRINE 8 MG in DEXTROSE 5% 250 ML IV PRN (04:30)
[2021-04-10] MEDS: PROPOFOL 1000 MG/100 ML PREMIX 100 ML IV PRN (04:30)
[2021-04-10 06:06] LABS: ANION GAP 8.2 (8-16); CARBON DIOXIDE 32.3 mmol/L (21-32); CREATININE 0.6 mg/dL (0.6-1.3); POTASSIUM 3.5 mmol/L (3.5-5.1)
[2021-04-10 06:23] LABS: BASOPHILS % (AUTO) 0.4 % (0.0-2.0); EOSINOPHILS # (AUTO) 0.2 K/uL (0-0.4); EOSINOPHILS % (AUTO) 2.1 % (0.0-4.0); HEMOGLOBIN 7.3 g/dL (12.0-18.0); LYMPHOCYTES # (AUTO) 1.3 K/uL (2.0-11.5); LYMPHOCYTES % (AUTO) 13.2 % (20.5-51.1); MEAN CORPUSCULAR HEMOGLOBIN 32 pg (27-31); MEAN CORPUSCULAR HGB CONC 33 g/dL (33-37); MEAN CORPUSCULAR VOLUME 96.7 fL (80-94); MONOCYTES # (AUTO) 0.9 K/uL (0.8-1.0); MONOCYTES % (AUTO) 8.6 % (1.7-9.3); NEUTROPHILS # (AUTO) 7.6 K/uL (1.8-7.7); NEUTROPHILS % (AUTO) 75.7 % (42.2-75.2); PLATELET COUNT (AUTO) 111 K/uL (140-450); RED BLOOD CELL COUNT(AUTO) 2.28 MIL/uL (4.20-6.10); RED CELL DISTRIBUTION WIDTH 20.6 % (11.6-13.7)
[2021-04-10] MEDS: ALBUTEROL SULFATE/IPRATROPIU 3 ML SOL IH SCH ×2 (07:10→18:50)
[2021-04-10] MEDS: PANTOPRAZOLE 40 MG INJ VIAL IVP SCH (08:48)
[2021-04-10] MEDS: methylPREDNISolone SS 40 MG/ML VIAL IVP SCH (08:48)
[2021-04-10] MEDS: ZINC SULF 220 MG CAP PO SCH (08:50)
[2021-04-10] MEDS: MAGNESIUM OXIDE 400 MG TAB NG SCH (08:50)
[2021-04-10] MEDS: ASCORBIC ACID 500 MG TAB PO SCH (08:50)
[2021-04-10] MEDS ORDERED: FUROSEMIDE 20 MG/2 ML VIAL IVP SCH (09:00)
[2021-04-10] MEDS: DEXT 5% / NACL 0.45% 1,000 ML IV SCH (10:26)
[2021-04-10] MEDS ORDERED: DEXMEDETOMIDINE HCL 400 MCG in NACL 0.9% 96 ML IV PRN (11:20)
[2021-04-10] MEDS: ALBUMIN HUMAN 25% 100 ML IV SCH ×2 (12:14→18:37)
[2021-04-10] MEDS: GAUZE TP SCH ×2 (13:10→13:11)
[2021-04-10] MEDS: Z-GUARD PASTE TP SCH (13:11)
[2021-04-11] VITALS (11 sets, daily range): BP systolic 90–134; BP diastolic 51–66
[2021-04-11] MEDS: DEXT 5% / NACL 0.45% 1,000 ML IV SCH (02:55)
[2021-04-11 06:06] LABS: CARBON DIOXIDE 31.8 mmol/L (21-32); CREATININE 0.6 mg/dL (0.6-1.3); POTASSIUM 3.8 mmol/L (3.5-5.1)
[2021-04-11 07:09] LABS: BASOPHILS # (AUTO) 0.1 K/uL (0.00-0.22); MEAN CORPUSCULAR VOLUME 97.1 fL (80-94); MONOCYTES # (AUTO) 0.6 K/uL (0.8-1.0); PLATELET COUNT (AUTO) 128 K/uL (140-450)
[2021-04-11] MEDS: ALBUTEROL SULFATE/IPRATROPIU 3 ML SOL IH SCH ×4 (07:20→19:28)
[2021-04-11 07:26] LABS: BASOPHILS % (AUTO) 1.2 % (0.0-2.0); EOSINOPHILS # (AUTO) 0.3 K/uL (0-0.4); EOSINOPHILS % (AUTO) 2.7 % (0.0-4.0); HEMATOCRIT 20.8 % (36-52); LYMPHOCYTES # (AUTO) 1.2 K/uL (2.0-11.5); LYMPHOCYTES % (AUTO) 12.7 % (20.5-51.1); MEAN CORPUSCULAR HEMOGLOBIN 32 pg (27-31); MEAN CORPUSCULAR HGB CONC 33 g/dL (33-37); MONOCYTES % (AUTO) 6.4 % (1.7-9.3); NEUTROPHILS # (AUTO) 7.6 K/uL (1.8-7.7); RED BLOOD CELL COUNT(AUTO) 2.14 MIL/uL (4.20-6.10); RED CELL DISTRIBUTION WIDTH 20.5 % (11.6-13.7); WHITE BLOOD COUNT (AUTO) 9.8 K/uL (4.8-10.8)
[2021-04-11 08:18] LABS: HEMOGLOBIN 6.9 g/dL (12.0-18.0)
[2021-04-11] MEDS: methylPREDNISolone SS 40 MG/ML VIAL IVP SCH (08:53)
[2021-04-11] MEDS: PANTOPRAZOLE 40 MG INJ VIAL IVP SCH (08:53)
[2021-04-11] MEDS: ASCORBIC ACID 500 MG TAB PO SCH (08:55)
[2021-04-11] MEDS: MAGNESIUM OXIDE 400 MG TAB NG SCH (08:55)
[2021-04-11] MEDS: ZINC SULF 220 MG CAP PO SCH (08:56)
[2021-04-11] MEDS ORDERED: FUROSEMIDE 20 MG/2 ML VIAL IVP SCH (10:30)
[2021-04-11] MEDS: GAUZE TP SCH ×2 (16:00)
[2021-04-11] MEDS: FOAM DRESSING TP SCH (16:00)
[2021-04-11] MEDS: Z-GUARD PASTE TP SCH (16:00)
[2021-04-12] VITALS: BP 115/60
[2021-04-12 04:00] VITALS: BP 120/62
[2021-04-12] MEDS: ALBUTEROL SULFATE/IPRATROPIU 3 ML SOL IH SCH ×2 (07:10→13:00)
[2021-04-12 07:39] LABS: BASOPHILS % (AUTO) 0.3 % (0.0-2.0); EOSINOPHILS # (AUTO) 0.5 K/uL (0-0.4); EOSINOPHILS % (AUTO) 3.4 % (0.0-4.0); LYMPHOCYTES # (AUTO) 0.8 K/uL (2.0-11.5); LYMPHOCYTES % (AUTO) 5.5 % (20.5-51.1); MEAN CORPUSCULAR HEMOGLOBIN 32 pg (27-31); MEAN CORPUSCULAR HGB CONC 33 g/dL (33-37); MEAN CORPUSCULAR VOLUME 96.8 fL (80-94); MONOCYTES # (AUTO) 0.7 K/uL (0.8-1.0); MONOCYTES % (AUTO) 4.9 % (1.7-9.3); NEUTROPHILS # (AUTO) 13.1 K/uL (1.8-7.7); NEUTROPHILS % (AUTO) 85.9 % (42.2-75.2); PLATELET COUNT (AUTO) 155 K/uL (140-450); RED BLOOD CELL COUNT(AUTO) 2.47 MIL/uL (4.20-6.10); RED CELL DISTRIBUTION WIDTH 20.5 % (11.6-13.7); WHITE BLOOD COUNT (AUTO) 15.2 K/uL (4.8-10.8)
[2021-04-12 08:00] VITALS: BP 115/53
[2021-04-12 08:10] LABS: ANION GAP 8.1 (8-16); CARBON DIOXIDE 31.1 mmol/L (21-32); CREATININE 0.5 mg/dL (0.6-1.3); POTASSIUM 3.2 mmol/L (3.5-5.1)
[2021-04-12] MEDS: DEXT 5% / NACL 0.45% 1,000 ML IV SCH (08:50)
[2021-04-12] MEDS: ASCORBIC ACID 500 MG TAB PO SCH (09:35)
[2021-04-12] MEDS: ZINC SULF 220 MG CAP PO SCH (09:35)
[2021-04-12] MEDS: MAGNESIUM OXIDE 400 MG TAB NG SCH (09:35)
[2021-04-12] MEDS: methylPREDNISolone SS 40 MG/ML VIAL IVP SCH (09:36)
[2021-04-12] MEDS: PANTOPRAZOLE 40 MG INJ VIAL IVP SCH (09:36)
[2021-04-12 12:00] VITALS: BP 113/52
[2021-04-12] MEDS: Z-GUARD PASTE TP SCH (13:38)
[2021-04-12] MEDS: GAUZE TP SCH ×2 (13:38)
[2021-04-12 16:00] VITALS: BP 126/54
[2021-04-13] MEDS: POTASSIUM CHLORIDE 20% 40 MEQ/15 ML UDC GT PRN (00:33)
[2021-04-13 08:00] VITALS: BP 129/82
[2021-04-13] MEDS: DEXT 5% / NACL 0.45% 1,000 ML IV SCH ×2 (08:24→20:33)
[2021-04-13] MEDS: PANTOPRAZOLE 40 MG INJ VIAL IVP SCH (09:00)
[2021-04-13] MEDS: ASCORBIC ACID 500 MG TAB PO SCH (09:00)
[2021-04-13] MEDS: ZINC SULF 220 MG CAP PO SCH ×2 (09:00→09:01)
[2021-04-13] MEDS: MAGNESIUM OXIDE 400 MG TAB NG SCH (09:00)
[2021-04-13] MEDS: methylPREDNISolone SS 40 MG/ML VIAL IVP SCH (09:00)
[2021-04-13] MEDS: GAUZE TP SCH ×2 (12:49→12:50)
[2021-04-13] MEDS: Z-GUARD PASTE TP SCH (12:50)
[2021-04-13 20:00] VITALS: BP 129/82
[2021-04-14 04:00] VITALS: BP 141/79
[2021-04-14 08:00] VITALS: BP 105/66
[2021-04-14 08:15] LABS: BASOPHILS # (AUTO) 0.1 K/uL (0.00-0.22); BASOPHILS % (AUTO) 0.9 % (0.0-2.0); EOSINOPHILS # (AUTO) 0.7 K/uL (0-0.4); HEMATOCRIT 25.9 % (36-52); HEMOGLOBIN 8.8 g/dL (12.0-18.0); LYMPHOCYTES # (AUTO) 1.2 K/uL (2.0-11.5); MEAN CORPUSCULAR HEMOGLOBIN 33 pg (27-31); MEAN CORPUSCULAR HGB CONC 34 g/dL (33-37); MEAN CORPUSCULAR VOLUME 96.6 fL (80-94); MONOCYTES # (AUTO) 0.8 K/uL (0.8-1.0); MONOCYTES % (AUTO) 8.5 % (1.7-9.3); NEUTROPHILS # (AUTO) 6.2 K/uL (1.8-7.7); NEUTROPHILS % (AUTO) 69.8 % (42.2-75.2); PLATELET COUNT (AUTO) 216 K/uL (140-450); RED BLOOD CELL COUNT(AUTO) 2.68 MIL/uL (4.20-6.10); RED CELL DISTRIBUTION WIDTH 20.9 % (11.6-13.7); WHITE BLOOD COUNT (AUTO) 8.9 K/uL (4.8-10.8)
[2021-04-14 08:34] LABS: LYMPHOCYTES % (AUTO) 13.2 % (20.5-51.1)
[2021-04-14 08:35] LABS: EOSINOPHILS % (AUTO) 7.6 % (0.0-4.0)
[2021-04-14 08:36] LABS: ANION GAP 9.7 (8-16); CARBON DIOXIDE 27.3 mmol/L (21-32); CREATININE 0.5 mg/dL (0.6-1.3)
[2021-04-14] MEDS: PANTOPRAZOLE 40 MG INJ VIAL IVP SCH (08:41)
[2021-04-14] MEDS: methylPREDNISolone SS 40 MG/ML VIAL IVP SCH (08:41)
[2021-04-14] MEDS: ZINC SULF 220 MG CAP PO SCH (08:42)
[2021-04-14] MEDS: MAGNESIUM OXIDE 400 MG TAB NG SCH (08:42)
[2021-04-14] MEDS: ASCORBIC ACID 500 MG TAB PO SCH (08:42)
[2021-04-14] MEDS: FOAM DRESSING TP SCH (08:43)
[2021-04-14] MEDS: GAUZE TP SCH ×2 (12:52)
[2021-04-14] MEDS: Z-GUARD PASTE TP SCH (12:52)
[2021-04-14 16:00] VITALS: BP 130/65
[2021-04-14 20:00] VITALS: BP 135/70
[2021-04-15 08:00] VITALS: BP 127/55
[2021-04-15] MEDS: methylPREDNISolone SS 40 MG/ML VIAL IVP SCH (09:06)
[2021-04-15] MEDS: PANTOPRAZOLE 40 MG INJ VIAL IVP SCH (09:06)
[2021-04-15] MEDS: MAGNESIUM OXIDE 400 MG TAB NG SCH (09:07)
[2021-04-15] MEDS: ZINC SULF 220 MG CAP PO SCH (09:07)
[2021-04-15] MEDS: ASCORBIC ACID 500 MG TAB PO SCH (09:07)
[2021-04-15] MEDS: DEXT 5% / NACL 0.45% 1,000 ML IV SCH (09:17)
[2021-04-15] MEDS: GAUZE TP SCH ×2 (12:32→12:33)
[2021-04-15] MEDS: Z-GUARD PASTE TP SCH (12:33)
[2021-04-15 16:00] VITALS: BP 128/76
[2021-04-16 00:11] VITALS: BP 121/68
[2021-04-16 08:00] VITALS: BP 111/72
[2021-04-16] MEDS: DEXT 5% / NACL 0.45% 1,000 ML IV SCH (08:24)
[2021-04-16] MEDS: ASCORBIC ACID 500 MG TAB PO SCH (08:39)
[2021-04-16] MEDS: MAGNESIUM OXIDE 400 MG TAB NG SCH (08:40)
[2021-04-16] MEDS: ZINC SULF 220 MG CAP PO SCH (08:40)
[2021-04-16] MEDS: methylPREDNISolone SS 40 MG/ML VIAL IVP SCH (09:00)
[2021-04-16] MEDS: PANTOPRAZOLE 40 MG INJ VIAL IVP SCH (09:00)
[2021-04-16] MEDS: GAUZE TP SCH ×2 (13:00)
[2021-04-16 16:00] VITALS: BP 133/63
[2021-04-16] MEDS: Z-GUARD PASTE TP SCH (19:18)
[2021-04-17 05:21] VITALS: BP 131/65
[2021-04-17 08:00] VITALS: BP 154/61
[2021-04-17] MEDS: DEXT 5% / NACL 0.45% 1,000 ML IV SCH (08:24)
[2021-04-17] MEDS: ASCORBIC ACID 500 MG TAB PO SCH (08:59)
[2021-04-17] MEDS: PANTOPRAZOLE 40 MG INJ VIAL IVP SCH (08:59)
[2021-04-17] MEDS: methylPREDNISolone SS 40 MG/ML VIAL IVP SCH (08:59)
[2021-04-17] MEDS: MAGNESIUM OXIDE 400 MG TAB NG SCH (08:59)
[2021-04-17] MEDS: ZINC SULF 220 MG CAP PO SCH (09:00)
[2021-04-17] MEDS: FOAM DRESSING TP SCH (09:02)
[2021-04-17] MEDS: GAUZE TP SCH ×2 (09:03→11:45)
[2021-04-17 10:46] LABS: BASOPHILS # (AUTO) 0.1 K/uL (0.00-0.22); BASOPHILS % (AUTO) 0.8 % (0.0-2.0); EOSINOPHILS # (AUTO) 0.7 K/uL (0-0.4); EOSINOPHILS % (AUTO) 8.7 % (0.0-4.0); HEMATOCRIT 29.6 % (36-52); HEMOGLOBIN 10.1 g/dL (12.0-18.0); LYMPHOCYTES # (AUTO) 1.3 K/uL (2.0-11.5); LYMPHOCYTES % (AUTO) 16.6 % (20.5-51.1); MEAN CORPUSCULAR HEMOGLOBIN 33 pg (27-31); MEAN CORPUSCULAR HGB CONC 34 g/dL (33-37); MEAN CORPUSCULAR VOLUME 95.7 fL (80-94); MONOCYTES # (AUTO) 0.8 K/uL (0.8-1.0); MONOCYTES % (AUTO) 9.9 % (1.7-9.3); NEUTROPHILS # (AUTO) 4.9 K/uL (1.8-7.7); PLATELET COUNT (AUTO) 196 K/uL (140-450); RED BLOOD CELL COUNT(AUTO) 3.09 MIL/uL (4.20-6.10); RED CELL DISTRIBUTION WIDTH 19.4 % (11.6-13.7); WHITE BLOOD COUNT (AUTO) 7.6 K/uL (4.8-10.8)
[2021-04-17 11:11] LABS: ANION GAP 11.6 (8-16); CREATININE 0.5 mg/dL (0.6-1.3); POTASSIUM 4.6 mmol/L (3.5-5.1)
[2021-04-17 11:28] LABS: PHOSPHORUS 4.1 mg/dL (2.5-4.9)
[2021-04-17] MEDS: Z-GUARD PASTE TP SCH (11:46)
[2021-04-17 16:00] VITALS: BP 125/77
[2021-04-17 20:00] VITALS: BP 133/73
[2021-04-17] MEDS ORDERED: NICOTINE TRANSD SYS 14 MG/24 HR PATCH TD SCH (22:45)
[2021-04-17] MEDS: ZOLPIDEM 5 MG TAB PO PRN (23:12)
[2021-04-18 08:00] VITALS: BP 139/73
[2021-04-18] MEDS: DEXT 5% / NACL 0.45% 1,000 ML IV SCH (08:24)
[2021-04-18 09:26] LABS: ANION GAP 9.8 (8-16); CARBON DIOXIDE 30.3 mmol/L (21-32); CREATININE 0.5 mg/dL (0.6-1.3); POTASSIUM 4.1 mmol/L (3.5-5.1)
[2021-04-18 09:35] LABS: MAGNESIUM 1.8 mg/dL (1.8-2.4); PHOSPHORUS 3.5 mg/dL (2.5-4.9)
[2021-04-18 09:42] LABS: PROTHROMBIN TIME 9.8 secs (10.8-13.4)
[2021-04-18] MEDS: PANTOPRAZOLE 40 MG INJ VIAL IVP SCH (09:54)
[2021-04-18] MEDS: ASCORBIC ACID 500 MG TAB PO SCH (09:55)
[2021-04-18] MEDS: methylPREDNISolone SS 40 MG/ML VIAL IVP SCH (09:55)
[2021-04-18] MEDS: ZINC SULF 220 MG CAP PO SCH (09:56)
[2021-04-18] MEDS: NICOTINE TRANSD SYS 14 MG/24 HR PATCH TD SCH (09:56)
[2021-04-18] MEDS: MAGNESIUM OXIDE 400 MG TAB NG SCH (09:57)
[2021-04-18 10:08] LABS: BASOPHILS % (AUTO) 0.6 % (0.0-2.0); EOSINOPHILS # (AUTO) 0.6 K/uL (0-0.4); EOSINOPHILS % (AUTO) 8.8 % (0.0-4.0); HEMATOCRIT 30.4 % (36-52); HEMOGLOBIN 10.2 g/dL (12.0-18.0); LYMPHOCYTES % (AUTO) 14.7 % (20.5-51.1); MEAN CORPUSCULAR HEMOGLOBIN 32 pg (27-31); MEAN CORPUSCULAR HGB CONC 34 g/dL (33-37); MEAN CORPUSCULAR VOLUME 95.9 fL (80-94); MONOCYTES # (AUTO) 0.5 K/uL (0.8-1.0); MONOCYTES % (AUTO) 7.7 % (1.7-9.3); NEUTROPHILS # (AUTO) 4.5 K/uL (1.8-7.7); NEUTROPHILS % (AUTO) 68.2 % (42.2-75.2); PLATELET COUNT (AUTO) 223 K/uL (140-450); RED BLOOD CELL COUNT(AUTO) 3.17 MIL/uL (4.20-6.10); RED CELL DISTRIBUTION WIDTH 19.3 % (11.6-13.7); WHITE BLOOD COUNT (AUTO) 6.6 K/uL (4.8-10.8)
[2021-04-18] MEDS: THERAHONEY GEL 42.5 GM TP SCH (13:00)
[2021-04-18] MEDS: NON ADHERENT DRESSING TP SCH (13:00)
[2021-04-18] MEDS: GAUZE TP SCH ×2 (13:00)
[2021-04-18] MEDS: Z-GUARD PASTE TP SCH (13:00)
[2021-04-18 16:00] VITALS: BP 106/55
[2021-04-18 20:00] VITALS: BP 128/73
[2021-04-19 08:00] VITALS: BP 106/61
[2021-04-19] MEDS: DEXT 5% / NACL 0.45% 1,000 ML IV SCH ×2 (08:24→16:22)
[2021-04-19] MEDS: NICOTINE TRANSD SYS 14 MG/24 HR PATCH TD SCH ×2 (09:00→10:00)
[2021-04-19] MEDS: PANTOPRAZOLE 40 MG INJ VIAL IVP SCH (10:00)
[2021-04-19] MEDS: methylPREDNISolone SS 40 MG/ML VIAL IVP SCH (10:00)
[2021-04-19] MEDS: MAGNESIUM OXIDE 400 MG TAB NG SCH (10:01)
[2021-04-19] MEDS: ASCORBIC ACID 500 MG TAB PO SCH (10:01)
[2021-04-19] MEDS: ZINC SULF 220 MG CAP PO SCH (10:01)
[2021-04-19] MEDS: THERAHONEY GEL 42.5 GM TP SCH (13:00)
[2021-04-19] MEDS: NON ADHERENT DRESSING TP SCH (13:00)
[2021-04-19] MEDS: Z-GUARD PASTE TP SCH (13:00)
[2021-04-19] MEDS: GAUZE TP SCH ×2 (13:00)
[2021-04-19 16:00] VITALS: BP 128/65
[2021-04-20] VITALS: BP 105/63
[2021-04-20 08:00] VITALS: BP 112/60
[2021-04-20] MEDS: MAGNESIUM OXIDE 400 MG TAB NG SCH (08:18)
[2021-04-20] MEDS: ASCORBIC ACID 500 MG TAB PO SCH (08:19)
[2021-04-20] MEDS: ZINC SULF 220 MG CAP PO SCH (08:21)
[2021-04-20] MEDS: NICOTINE TRANSD SYS 14 MG/24 HR PATCH TD SCH (08:21)
[2021-04-20] MEDS: PANTOPRAZOLE 40 MG INJ VIAL IVP SCH (08:23)
[2021-04-20] MEDS: methylPREDNISolone SS 40 MG/ML VIAL IVP SCH (08:24)
[2021-04-20] MEDS: DEXT 5% / NACL 0.45% 1,000 ML IV SCH (08:38)
[2021-04-20] MEDS: FOAM DRESSING TP SCH (09:00)
[2021-04-20] MEDS: GAUZE TP SCH ×2 (13:24→13:25)
[2021-04-20] MEDS: NON ADHERENT DRESSING TP SCH (13:25)
[2021-04-20] MEDS: Z-GUARD PASTE TP SCH (13:26)
[2021-04-20] MEDS: THERAHONEY GEL 42.5 GM TP SCH (13:26)
[2021-04-20 14:30] LABS: BASOPHILS # (AUTO) 0.1 K/uL (0.00-0.22); BASOPHILS % (AUTO) 1.4 % (0.0-2.0); EOSINOPHILS # (AUTO) 0.1 K/uL (0-0.4); EOSINOPHILS % (AUTO) 0.8 % (0.0-4.0); HEMATOCRIT 32.6 % (36-52); HEMOGLOBIN 10.9 g/dL (12.0-18.0); LYMPHOCYTES # (AUTO) 0.7 K/uL (2.0-11.5); LYMPHOCYTES % (AUTO) 7.6 % (20.5-51.1); MEAN CORPUSCULAR HEMOGLOBIN 32 pg (27-31); MEAN CORPUSCULAR HGB CONC 33 g/dL (33-37); MEAN CORPUSCULAR VOLUME 95.5 fL (80-94); MONOCYTES # (AUTO) 0.3 K/uL (0.8-1.0); MONOCYTES % (AUTO) 3.2 % (1.7-9.3); NEUTROPHILS # (AUTO) 7.8 K/uL (1.8-7.7); PLATELET COUNT (AUTO) 232 K/uL (140-450); RED BLOOD CELL COUNT(AUTO) 3.42 MIL/uL (4.20-6.10); RED CELL DISTRIBUTION WIDTH 18.9 % (11.6-13.7); WHITE BLOOD COUNT (AUTO) 8.9 K/uL (4.8-10.8)
[2021-04-20 15:04] LABS: ANION GAP 10.3 (8-16); CARBON DIOXIDE 28.9 mmol/L (21-32); CREATININE 0.5 mg/dL (0.6-1.3); POTASSIUM 4.2 mmol/L (3.5-5.1)
[2021-04-20 15:33] LABS: MAGNESIUM 1.7 mg/dL (1.8-2.4); PHOSPHORUS 4.7 mg/dL (2.5-4.9)
[2021-04-20 18:00] VITALS: BP 115/55
[2021-04-21] MEDS: DEXT 5% / NACL 0.45% 1,000 ML IV SCH ×2 (00:50→20:00)
[2021-04-21 04:00] VITALS: BP 124/65
[2021-04-21] MEDS: NICOTINE TRANSD SYS 14 MG/24 HR PATCH TD SCH ×3 (08:21→11:47)
[2021-04-21] MEDS: PANTOPRAZOLE 40 MG INJ VIAL IVP SCH (08:52)
[2021-04-21] MEDS: methylPREDNISolone SS 40 MG/ML VIAL IVP SCH (08:53)
[2021-04-21] MEDS: MAGNESIUM OXIDE 400 MG TAB NG SCH (09:21)
[2021-04-21] MEDS: ASCORBIC ACID 500 MG TAB PO SCH (09:21)
[2021-04-21] MEDS: ZINC SULF 220 MG CAP PO SCH (09:21)
[2021-04-21 12:00] VITALS: BP 113/53
[2021-04-21] MEDS: GAUZE TP SCH ×2 (13:00)
[2021-04-21] MEDS: Z-GUARD PASTE TP SCH (13:01)
[2021-04-21] MEDS: NON ADHERENT DRESSING TP SCH (13:01)
[2021-04-21] MEDS: THERAHONEY GEL 42.5 GM TP SCH (13:01)
[2021-04-21 14:32] LABS: BASOPHILS % (AUTO) 0.6 % (0.0-2.0); HEMATOCRIT 28.4 % (36-52); HEMOGLOBIN 9.7 g/dL (12.0-18.0); LYMPHOCYTES # (AUTO) 0.5 K/uL (2.0-11.5); LYMPHOCYTES % (AUTO) 6.5 % (20.5-51.1); MEAN CORPUSCULAR HEMOGLOBIN 32 pg (27-31); MEAN CORPUSCULAR HGB CONC 34 g/dL (33-37); MEAN CORPUSCULAR VOLUME 94.3 fL (80-94); MONOCYTES # (AUTO) 0.3 K/uL (0.8-1.0); MONOCYTES % (AUTO) 4.5 % (1.7-9.3); NEUTROPHILS # (AUTO) 6.7 K/uL (1.8-7.7); NEUTROPHILS % (AUTO) 88.4 % (42.2-75.2); PLATELET COUNT (AUTO) 204 K/uL (140-450); RED CELL DISTRIBUTION WIDTH 18.6 % (11.6-13.7); WHITE BLOOD COUNT (AUTO) 7.6 K/uL (4.8-10.8)
[2021-04-21 14:56] LABS: ANION GAP 9.8 (8-16); CARBON DIOXIDE 29.3 mmol/L (21-32); CREATININE 0.6 mg/dL (0.6-1.3); POTASSIUM 4.1 mmol/L (3.5-5.1)
[2021-04-21 15:01] LABS: MAGNESIUM 1.8 mg/dL (1.8-2.4); PHOSPHORUS 4.1 mg/dL (2.5-4.9)
[2021-04-21 20:00] VITALS: BP 98/49
[2021-04-21] MEDS: ZOLPIDEM 5 MG TAB PO PRN (23:19)
[2021-04-22 04:00] VITALS: BP 101/52
[2021-04-22 08:00] VITALS: BP 113/60
[2021-04-22] MEDS: MAGNESIUM OXIDE 400 MG TAB NG SCH (09:00)
[2021-04-22] MEDS: PANTOPRAZOLE 40 MG INJ VIAL IVP SCH (09:00)
[2021-04-22] MEDS: methylPREDNISolone SS 40 MG/ML VIAL IVP SCH (09:00)
[2021-04-22] MEDS: ZINC SULF 220 MG CAP PO SCH (09:00)
[2021-04-22] MEDS: ASCORBIC ACID 500 MG TAB PO SCH (09:00)
[2021-04-22] MEDS: DEXT 5% / NACL 0.45% 1,000 ML IV SCH (10:10)
[2021-04-22] MEDS: NICOTINE TRANSD SYS 14 MG/24 HR PATCH TD SCH ×2 (11:02→11:03)
[2021-04-22] MEDS: THERAHONEY GEL 42.5 GM TP SCH (13:00)
[2021-04-22] MEDS: Z-GUARD PASTE TP SCH (13:00)
[2021-04-22] MEDS: NON ADHERENT DRESSING TP SCH (13:00)
[2021-04-22] MEDS: GAUZE TP SCH ×2 (13:00)
[2021-04-22 16:00] VITALS: BP 144/72
[2021-04-22 20:00] VITALS: BP 105/58
[2021-04-23] MEDS: ZOLPIDEM 5 MG TAB PO PRN (02:19)
[2021-04-23] MEDS: DEXT 5% / NACL 0.45% 1,000 ML IV SCH ×2 (02:50→16:25)
[2021-04-23 04:00] VITALS: BP 110/65
[2021-04-23 08:00] VITALS: BP 133/64
[2021-04-23] MEDS: methylPREDNISolone SS 40 MG/ML VIAL IVP SCH (09:00)
[2021-04-23] MEDS: PANTOPRAZOLE 40 MG INJ VIAL IVP SCH (09:00)
[2021-04-23] MEDS: ZINC SULF 220 MG CAP PO SCH (09:00)
[2021-04-23] MEDS: FOAM DRESSING TP SCH (09:00)
[2021-04-23] MEDS: ASCORBIC ACID 500 MG TAB PO SCH (09:00)
[2021-04-23] MEDS: MAGNESIUM OXIDE 400 MG TAB NG SCH (09:00)
[2021-04-23] MEDS ORDERED: fentaNYL citrate 0.05 MG/ML VIAL ONE (10:36)
[2021-04-23] MEDS: THERAHONEY GEL 42.5 GM TP SCH (12:33)
[2021-04-23] MEDS: Z-GUARD PASTE TP SCH (12:33)
[2021-04-23] MEDS: NON ADHERENT DRESSING TP SCH (12:33)
[2021-04-23] MEDS: GAUZE TP SCH ×2 (12:33)
[2021-04-23 16:00] VITALS: BP 123/60
[2021-04-24 04:00] VITALS: BP 111/60
[2021-04-24] MEDS: DEXT 5% / NACL 0.45% 1,000 ML IV SCH (06:03)
[2021-04-24 08:00] VITALS: BP 142/76
[2021-04-24] MEDS: NICOTINE TRANSD SYS 14 MG/24 HR PATCH TD SCH (09:00)
[2021-04-24] MEDS: PANTOPRAZOLE 40 MG INJ VIAL IVP SCH (09:54)
[2021-04-24] MEDS: MAGNESIUM OXIDE 400 MG TAB NG SCH (09:55)
[2021-04-24] MEDS: ASCORBIC ACID 500 MG TAB PO SCH (09:55)
[2021-04-24] MEDS: ZINC SULF 220 MG CAP PO SCH (09:55)
[2021-04-24] MEDS: methylPREDNISolone SS 40 MG/ML VIAL IVP SCH (09:55)
[2021-04-24] MEDS: ACETAMINOPHEN 325 MG TAB PO PRN (12:48)
[2021-04-24 12:52] LABS: BASOPHILS % (AUTO) 0.2 % (0.0-2.0); HEMATOCRIT 31.8 % (36-52); HEMOGLOBIN 10.7 g/dL (12.0-18.0); LYMPHOCYTES # (AUTO) 0.7 K/uL (2.0-11.5); LYMPHOCYTES % (AUTO) 4.6 % (20.5-51.1); MEAN CORPUSCULAR HEMOGLOBIN 32 pg (27-31); MEAN CORPUSCULAR HGB CONC 34 g/dL (33-37); MEAN CORPUSCULAR VOLUME 94.1 fL (80-94); MONOCYTES # (AUTO) 0.7 K/uL (0.8-1.0); MONOCYTES % (AUTO) 4.5 % (1.7-9.3); NEUTROPHILS # (AUTO) 13.3 K/uL (1.8-7.7); NEUTROPHILS % (AUTO) 90.7 % (42.2-75.2); PLATELET COUNT (AUTO) 227 K/uL (140-450); RED BLOOD CELL COUNT(AUTO) 3.38 MIL/uL (4.20-6.10); RED CELL DISTRIBUTION WIDTH 17.9 % (11.6-13.7); WHITE BLOOD COUNT (AUTO) 14.7 K/uL (4.8-10.8)
[2021-04-24] MEDS: Z-GUARD PASTE TP SCH (13:00)
[2021-04-24] MEDS: THERAHONEY GEL 42.5 GM TP SCH (13:00)
[2021-04-24] MEDS: GAUZE TP SCH ×2 (13:00)
[2021-04-24] MEDS: NON ADHERENT DRESSING TP SCH (13:00)
[2021-04-24 14:51] LABS: ANION GAP 11.7 (8-16); CARBON DIOXIDE 25.2 mmol/L (21-32); CREATININE 0.5 mg/dL (0.6-1.3); POTASSIUM 3.9 mmol/L (3.5-5.1)
[2021-04-24 14:56] LABS: MAGNESIUM 1.7 mg/dL (1.8-2.4); PHOSPHORUS 4.1 mg/dL (2.5-4.9)
[2021-04-24 16:00] VITALS: BP 114/60
[2021-04-24 20:00] VITALS: BP 123/76
[2021-04-25] VITALS: BP 117/67
[2021-04-25] MEDS ORDERED: PIPERACILLIN/TAZOBACTAM 3.375 GM VIAL IV ONE ×2 (00:09→05:01)
[2021-04-25] MEDS: PIPERACILLIN/TAZOBACTAM 3.375 GM in DEXTROSE 5% 50 ML IV SCH ×4 (00:11→17:58)
[2021-04-25 00:18] VITALS: BP 115/78
[2021-04-25 04:08] VITALS: BP 117/57
[2021-04-25] MEDS: DEXT 5% / NACL 0.45% 1,000 ML IV SCH ×2 (05:18→21:30)
[2021-04-25 08:00] VITALS: BP 91/44
[2021-04-25] MEDS: ZINC SULF 220 MG CAP PO SCH (09:00)
[2021-04-25] MEDS: ASCORBIC ACID 500 MG TAB PO SCH (09:00)
[2021-04-25] MEDS: MAGNESIUM OXIDE 400 MG TAB NG SCH (09:00)
[2021-04-25 09:11] LABS: BASOPHILS # (AUTO) 0.1 K/uL (0.00-0.22); BASOPHILS % (AUTO) 0.6 % (0.0-2.0); EOSINOPHILS % (AUTO) 0.2 % (0.0-4.0); HEMATOCRIT 29.5 % (36-52); HEMOGLOBIN 9.7 g/dL (12.0-18.0); LYMPHOCYTES # (AUTO) 1.3 K/uL (2.0-11.5); MEAN CORPUSCULAR HEMOGLOBIN 31 pg (27-31); MEAN CORPUSCULAR HGB CONC 33 g/dL (33-37); MEAN CORPUSCULAR VOLUME 94.9 fL (80-94); MONOCYTES # (AUTO) 0.7 K/uL (0.8-1.0); MONOCYTES % (AUTO) 5.5 % (1.7-9.3); NEUTROPHILS # (AUTO) 11.2 K/uL (1.8-7.7); NEUTROPHILS % (AUTO) 83.7 % (42.2-75.2); PLATELET COUNT (AUTO) 199 K/uL (140-450); RED BLOOD CELL COUNT(AUTO) 3.11 MIL/uL (4.20-6.10); RED CELL DISTRIBUTION WIDTH 17.8 % (11.6-13.7); WHITE BLOOD COUNT (AUTO) 13.4 K/uL (4.8-10.8)
[2021-04-25] MEDS: NICOTINE TRANSD SYS 14 MG/24 HR PATCH TD SCH (09:14)
[2021-04-25 09:27] LABS: ANION GAP 11.5 (8-16); CARBON DIOXIDE 25.2 mmol/L (21-32); CREATININE 0.5 mg/dL (0.6-1.3); POTASSIUM 3.7 mmol/L (3.5-5.1)
[2021-04-25 09:32] LABS: MAGNESIUM 1.7 mg/dL (1.8-2.4); PHOSPHORUS 3.6 mg/dL (2.5-4.9)
[2021-04-25 09:44] LABS: PROTHROMBIN TIME 10.6 secs (10.8-13.4)
[2021-04-25] MEDS: PANTOPRAZOLE 40 MG INJ VIAL IVP SCH (10:40)
[2021-04-25] MEDS: methylPREDNISolone SS 40 MG/ML VIAL IVP SCH (10:40)
[2021-04-25] MEDS: ACETAMINOPHEN 325 MG TAB PO PRN (11:29)
[2021-04-25] MEDS: NON ADHERENT DRESSING TP SCH (13:00)
[2021-04-25] MEDS: THERAHONEY GEL 42.5 GM TP SCH (13:00)
[2021-04-25] MEDS: Z-GUARD PASTE TP SCH (13:00)
[2021-04-25] MEDS: GAUZE TP SCH ×2 (13:00)
[2021-04-25] MEDS ORDERED: DESFLURANE 240 ML BTL INH ONE (13:35)
[2021-04-25] MEDS ORDERED: fentaNYL citrate 0.05 MG/ML VIAL ONE (13:58)
[2021-04-25] MEDS ORDERED: PROPOFOL 200 MG/20 ML VIAL IV ONE (14:02)
[2021-04-25] MEDS ORDERED: KETOROLAC 30 MG/ML VIAL ONE (14:02)
[2021-04-25] MEDS ORDERED: ONDANSETRON 4 MG/2 ML VIAL ONE (14:02)
[2021-04-25] MEDS ORDERED: HYDROmorphone 1 MG/ML AMP IVP PRN ×2 (14:05→14:35)
[2021-04-25] MEDS ORDERED: ONDANSETRON 4 MG/2 ML VIAL IVP PRN (14:05)
[2021-04-25] MEDS ORDERED: MORPHINE SULFATE 4 MG/ML SYR IV PRN (14:35)
[2021-04-25 16:00] VITALS: BP 100/56
[2021-04-26] VITALS: BP 128/74
[2021-04-26] MEDS: PIPERACILLIN/TAZOBACTAM 3.375 GM in DEXTROSE 5% 50 ML IV SCH ×4 (00:05→17:57)
[2021-04-26] MEDS: DEXT 5% / NACL 0.45% 1,000 ML IV SCH (04:25)
[2021-04-26 08:00] VITALS: BP 126/73
[2021-04-26] MEDS: ASCORBIC ACID 500 MG TAB PO SCH (09:13)
[2021-04-26] MEDS: MAGNESIUM OXIDE 400 MG TAB NG SCH (09:13)
[2021-04-26] MEDS: NICOTINE TRANSD SYS 14 MG/24 HR PATCH TD SCH (09:14)
[2021-04-26] MEDS: ZINC SULF 220 MG CAP PO SCH (09:14)
[2021-04-26] MEDS: methylPREDNISolone SS 40 MG/ML VIAL IVP SCH (09:14)
[2021-04-26] MEDS: PANTOPRAZOLE 40 MG INJ VIAL IVP SCH (09:14)
[2021-04-26] MEDS: FOAM DRESSING TP SCH (09:28)
[2021-04-26 11:51] LABS: ANION GAP 11.6 (8-16); CARBON DIOXIDE 27.2 mmol/L (21-32); CREATININE 0.8 mg/dL (0.6-1.3); POTASSIUM 3.8 mmol/L (3.5-5.1)
[2021-04-26 11:55] LABS: MAGNESIUM 1.9 mg/dL (1.8-2.4); PHOSPHORUS 3.7 mg/dL (2.5-4.9)
[2021-04-26 12:03] LABS: HEMATOCRIT 31.2 % (36-52); HEMOGLOBIN 10.3 g/dL (12.0-18.0); MEAN CORPUSCULAR HEMOGLOBIN 31 pg (27-31); MEAN CORPUSCULAR HGB CONC 33 g/dL (33-37); MEAN CORPUSCULAR VOLUME 94.7 fL (80-94); PLATELET COUNT (AUTO) 319 K/uL (140-450); WHITE BLOOD COUNT (AUTO) 16.4 K/uL (4.8-10.8)
[2021-04-26 12:17] LABS: BASOPHILS % (MANUAL) 0 % (0-2); EOSINOPHILS % (MANUAL) 0 % (0-4); LYMPHOCYTES % (MANUAL) 6 % (20-46); MONOCYTES % (MANUAL) 5 % (5-12)
[2021-04-26] MEDS: NON ADHERENT DRESSING TP SCH (13:05)
[2021-04-26] MEDS: GAUZE TP SCH ×2 (13:05)
[2021-04-26] MEDS: THERAHONEY GEL 42.5 GM TP SCH (13:05)
[2021-04-26] MEDS: Z-GUARD PASTE TP SCH (13:06)
[2021-04-26 16:00] VITALS: BP 152/91
[2021-04-26 20:00] VITALS: BP 148/84
[2021-04-27] MEDS: PIPERACILLIN/TAZOBACTAM 3.375 GM in DEXTROSE 5% 50 ML IV SCH ×4 (01:13→17:42)
[2021-04-27] MEDS: DEXT 5% / NACL 0.45% 1,000 ML IV SCH ×2 (06:50→23:30)
[2021-04-27 08:00] VITALS: BP 136/67
[2021-04-27] MEDS: methylPREDNISolone SS 40 MG/ML VIAL IVP SCH (09:07)
[2021-04-27] MEDS: ZINC SULF 220 MG CAP PO SCH (09:09)
[2021-04-27] MEDS: MAGNESIUM OXIDE 400 MG TAB NG SCH (09:10)
[2021-04-27] MEDS: ASCORBIC ACID 500 MG TAB PO SCH (09:10)
[2021-04-27] MEDS: NICOTINE TRANSD SYS 14 MG/24 HR PATCH TD SCH (09:11)
[2021-04-27 10:55] LABS: BASOPHILS # (AUTO) 0.1 K/uL (0.00-0.22); BASOPHILS % (AUTO) 0.6 % (0.0-2.0); EOSINOPHILS % (AUTO) 0.2 % (0.0-4.0); HEMATOCRIT 27.5 % (36-52); HEMOGLOBIN 9.2 g/dL (12.0-18.0); LYMPHOCYTES # (AUTO) 1.2 K/uL (2.0-11.5); LYMPHOCYTES % (AUTO) 14.4 % (20.5-51.1); MEAN CORPUSCULAR HEMOGLOBIN 32 pg (27-31); MEAN CORPUSCULAR HGB CONC 34 g/dL (33-37); MEAN CORPUSCULAR VOLUME 94.4 fL (80-94); MONOCYTES # (AUTO) 0.5 K/uL (0.8-1.0); MONOCYTES % (AUTO) 6.3 % (1.7-9.3); NEUTROPHILS # (AUTO) 6.5 K/uL (1.8-7.7); NEUTROPHILS % (AUTO) 78.5 % (42.2-75.2); PLATELET COUNT (AUTO) 232 K/uL (140-450); RED BLOOD CELL COUNT(AUTO) 2.91 MIL/uL (4.20-6.10); RED CELL DISTRIBUTION WIDTH 18.2 % (11.6-13.7); WHITE BLOOD COUNT (AUTO) 8.3 K/uL (4.8-10.8)
[2021-04-27 11:15] LABS: ANION GAP 10.2 (8-16); CARBON DIOXIDE 26.9 mmol/L (21-32); CREATININE 0.5 mg/dL (0.6-1.3); POTASSIUM 4.1 mmol/L (3.5-5.1)
[2021-04-27 11:56] LABS: MAGNESIUM 1.7 mg/dL (1.8-2.4); PHOSPHORUS 3.3 mg/dL (2.5-4.9)
[2021-04-27] MEDS: GAUZE TP SCH (13:00)
[2021-04-27] MEDS: THERAHONEY GEL 42.5 GM TP SCH (13:00)
[2021-04-27] MEDS: NON ADHERENT DRESSING TP SCH (13:00)
[2021-04-27 14:10] LABS: ANION GAP 10.6 (8-16); CARBON DIOXIDE 25.4 mmol/L (21-32); CREATININE 0.5 mg/dL (0.6-1.3)
[2021-04-27 16:00] VITALS: BP 153/70
[2021-04-27 20:00] VITALS: BP 138/76
[2021-04-28] VITALS: BP 135/75
[2021-04-28] MEDS: PIPERACILLIN/TAZOBACTAM 3.375 GM in DEXTROSE 5% 50 ML IV SCH ×4 (00:53→17:32)
[2021-04-28 08:00] VITALS: BP 149/80
[2021-04-28] MEDS: methylPREDNISolone SS 40 MG/ML VIAL IVP SCH (09:30)
[2021-04-28] MEDS: ZINC SULF 220 MG CAP PO SCH (09:30)
[2021-04-28] MEDS: ASCORBIC ACID 500 MG TAB PO SCH (09:30)
[2021-04-28] MEDS: MAGNESIUM OXIDE 400 MG TAB NG SCH (09:30)
[2021-04-28] MEDS: NICOTINE TRANSD SYS 14 MG/24 HR PATCH TD SCH (09:33)
[2021-04-28] MEDS: THERAHONEY GEL 42.5 GM TP SCH (13:00)
[2021-04-28] MEDS: NON ADHERENT DRESSING TP SCH (13:00)
[2021-04-28] MEDS: GAUZE TP SCH (13:00)
[2021-04-28 16:00] VITALS: BP 106/49
[2021-04-28] MEDS: DEXT 5% / NACL 0.45% 1,000 ML IV SCH (16:10)
[2021-04-28 20:00] VITALS: BP 112/65
[2021-04-28] MEDS: ZOLPIDEM 5 MG TAB PO PRN (21:30)
[2021-04-29 04:00] VITALS: BP 110/70
[2021-04-29] MEDS: PIPERACILLIN/TAZOBACTAM 3.375 GM in DEXTROSE 5% 50 ML IV SCH ×5 (06:00→18:00)
[2021-04-29 08:43] LABS: BASOPHILS % (AUTO) 0.3 % (0.0-2.0); EOSINOPHILS # (AUTO) 0.1 K/uL (0-0.4); EOSINOPHILS % (AUTO) 0.5 % (0.0-4.0); HEMATOCRIT 30.9 % (36-52); HEMOGLOBIN 10.4 g/dL (12.0-18.0); LYMPHOCYTES # (AUTO) 2.3 K/uL (2.0-11.5); LYMPHOCYTES % (AUTO) 14.6 % (20.5-51.1); MEAN CORPUSCULAR HEMOGLOBIN 32 pg (27-31); MEAN CORPUSCULAR HGB CONC 34 g/dL (33-37); MEAN CORPUSCULAR VOLUME 94.1 fL (80-94); MONOCYTES # (AUTO) 1.2 K/uL (0.8-1.0); MONOCYTES % (AUTO) 7.6 % (1.7-9.3); NEUTROPHILS # (AUTO) 12.4 K/uL (1.8-7.7); PLATELET COUNT (AUTO) 440 K/uL (140-450); RED BLOOD CELL COUNT(AUTO) 3.28 MIL/uL (4.20-6.10); RED CELL DISTRIBUTION WIDTH 18.2 % (11.6-13.7); WHITE BLOOD COUNT (AUTO) 16.1 K/uL (4.8-10.8)
[2021-04-29 08:47] LABS: PROTHROMBIN TIME 9.6 secs (10.8-13.4)
[2021-04-29] MEDS: DEXT 5% / NACL 0.45% 1,000 ML IV SCH (08:50)
[2021-04-29] MEDS: methylPREDNISolone SS 40 MG/ML VIAL IVP SCH (09:00)
[2021-04-29] MEDS: MAGNESIUM OXIDE 400 MG TAB NG SCH (09:29)
[2021-04-29] MEDS: NICOTINE TRANSD SYS 14 MG/24 HR PATCH TD SCH ×2 (09:29→09:34)
[2021-04-29] MEDS: ZINC SULF 220 MG CAP PO SCH (09:30)
[2021-04-29] MEDS: ASCORBIC ACID 500 MG TAB PO SCH (09:30)
[2021-04-29 12:00] VITALS: BP 125/78
[2021-04-29] MEDS: NON ADHERENT DRESSING TP SCH (13:28)
[2021-04-29] MEDS: GAUZE TP SCH (13:28)
[2021-04-29] MEDS: THERAHONEY GEL 42.5 GM TP SCH (13:28)
[2021-04-29 20:00] VITALS: BP 119/69
[2021-04-30] MEDS: DEXT 5% / NACL 0.45% 1,000 ML IV SCH ×2 (01:30→18:10)
[2021-04-30 04:00] VITALS: BP 145/84
[2021-04-30] MEDS: PIPERACILLIN/TAZOBACTAM 3.375 GM in DEXTROSE 5% 50 ML IV SCH ×6 (05:55→23:55)
[2021-04-30] MEDS: methylPREDNISolone SS 40 MG/ML VIAL IVP SCH (09:00)
[2021-04-30] MEDS: MAGNESIUM OXIDE 400 MG TAB NG SCH (09:52)
[2021-04-30] MEDS: NICOTINE TRANSD SYS 14 MG/24 HR PATCH TD SCH (09:52)
[2021-04-30] MEDS: ASCORBIC ACID 500 MG TAB PO SCH (09:52)
[2021-04-30] MEDS: ZINC SULF 220 MG CAP PO SCH (09:52)
[2021-04-30 12:00] VITALS: BP 143/95
[2021-04-30 12:25] LABS: BASOPHILS # (AUTO) 0.1 K/uL (0.00-0.22); BASOPHILS % (AUTO) 0.4 % (0.0-2.0); EOSINOPHILS # (AUTO) 0.1 K/uL (0-0.4); EOSINOPHILS % (AUTO) 1.1 % (0.0-4.0); HEMATOCRIT 29.2 % (36-52); HEMOGLOBIN 9.8 g/dL (12.0-18.0); LYMPHOCYTES # (AUTO) 1.9 K/uL (2.0-11.5); LYMPHOCYTES % (AUTO) 16.3 % (20.5-51.1); MEAN CORPUSCULAR HEMOGLOBIN 31 pg (27-31); MEAN CORPUSCULAR HGB CONC 34 g/dL (33-37); MEAN CORPUSCULAR VOLUME 93.2 fL (80-94); NEUTROPHILS # (AUTO) 8.4 K/uL (1.8-7.7); NEUTROPHILS % (AUTO) 73.2 % (42.2-75.2); PLATELET COUNT (AUTO) 382 K/uL (140-450); RED BLOOD CELL COUNT(AUTO) 3.13 MIL/uL (4.20-6.10); RED CELL DISTRIBUTION WIDTH 17.7 % (11.6-13.7); WHITE BLOOD COUNT (AUTO) 11.5 K/uL (4.8-10.8)
[2021-04-30 12:57] LABS: ANION GAP 8.6 (8-16); CARBON DIOXIDE 31.6 mmol/L (21-32); CREATININE 0.4 mg/dL (0.6-1.3); POTASSIUM 4.2 mmol/L (3.5-5.1)
[2021-04-30] MEDS: GAUZE TP SCH (13:27)
[2021-04-30] MEDS: THERAHONEY GEL 42.5 GM TP SCH (13:27)
[2021-04-30] MEDS: NON ADHERENT DRESSING TP SCH (13:27)
[2021-04-30] MEDS: MORPHINE SULFATE 2 MG/ML SYR IVP PRN (22:01)
[2021-04-30 23:01] VITALS: BP 139/85
[2021-04-30] MEDS ORDERED: PIPERACILLIN/TAZOBACTAM 3.375 GM VIAL IV ONE (23:42)
[2021-05-01 04:57] VITALS: BP 132/82
[2021-05-01] MEDS ORDERED: PIPERACILLIN/TAZOBACTAM 3.375 GM VIAL IV ONE (05:02)
[2021-05-01] MEDS: PIPERACILLIN/TAZOBACTAM 3.375 GM in DEXTROSE 5% 50 ML IV SCH ×3 (05:08→18:46)
[2021-05-01 08:00] VITALS: BP 133/92
[2021-05-01] MEDS: methylPREDNISolone SS 40 MG/ML VIAL IVP SCH (09:00)
[2021-05-01] MEDS: MAGNESIUM OXIDE 400 MG TAB NG SCH (09:00)
[2021-05-01] MEDS: ZINC SULF 220 MG CAP PO SCH (09:00)
[2021-05-01] MEDS: ASCORBIC ACID 500 MG TAB PO SCH (09:00)
[2021-05-01] MEDS ORDERED: BUPIVACAINE-MPF 0.25% 30 ML VIAL INJ ONE (09:09)
[2021-05-01 09:17] LABS: BASOPHILS # (AUTO) 0.1 K/uL (0.00-0.22); BASOPHILS % (AUTO) 1.4 % (0.0-2.0); EOSINOPHILS # (AUTO) 0.2 K/uL (0-0.4); EOSINOPHILS % (AUTO) 1.7 % (0.0-4.0); HEMATOCRIT 26.4 % (36-52); HEMOGLOBIN 8.9 g/dL (12.0-18.0); LYMPHOCYTES # (AUTO) 1.8 K/uL (2.0-11.5); LYMPHOCYTES % (AUTO) 17.6 % (20.5-51.1); MEAN CORPUSCULAR HEMOGLOBIN 32 pg (27-31); MEAN CORPUSCULAR HGB CONC 34 g/dL (33-37); MEAN CORPUSCULAR VOLUME 94.3 fL (80-94); MONOCYTES # (AUTO) 0.8 K/uL (0.8-1.0); NEUTROPHILS # (AUTO) 7.4 K/uL (1.8-7.7); NEUTROPHILS % (AUTO) 71.3 % (42.2-75.2); PLATELET COUNT (AUTO) 337 K/uL (140-450); RED BLOOD CELL COUNT(AUTO) 2.79 MIL/uL (4.20-6.10); RED CELL DISTRIBUTION WIDTH 18.1 % (11.6-13.7); WHITE BLOOD COUNT (AUTO) 10.4 K/uL (4.8-10.8)
[2021-05-01] MEDS ORDERED: fentaNYL citrate 0.05 MG/ML VIAL ONE (09:20)
[2021-05-01] MEDS ORDERED: SEVOFLURANE 250 ML BTL INH ONE (09:25)
[2021-05-01] MEDS ORDERED: ePHEDrine 50 MG/ML VIAL ONE (09:47)
[2021-05-01] MEDS ORDERED: diphenhydrAMINE 50 MG/ML VIAL IVP PRN (10:00)
[2021-05-01] MEDS ORDERED: HYDROmorphone 1 MG/ML AMP IVP PRN (10:00)
[2021-05-01] MEDS ORDERED: ONDANSETRON 4 MG/2 ML VIAL IVP PRN (10:00)
[2021-05-01] MEDS ORDERED: LACTATED RINGERS 1,000 ML IV SCH (10:00)
[2021-05-01] MEDS ORDERED: MEPERIDINE 25 MG/ML SYR IVP PRN (10:00)
[2021-05-01] MEDS ORDERED: BLOOD GLUCOSE MONITORING 1 DEV DEV FS SCH (10:01)
[2021-05-01 10:18] LABS: ANION GAP 10.2 (8-16); POTASSIUM 5.2 mmol/L (3.5-5.1)
[2021-05-01 10:28] LABS: CREATININE 0.4 mg/dL (0.6-1.3)
[2021-05-01] MEDS: DEXT 5% / NACL 0.45% 1,000 ML IV SCH (10:50)
[2021-05-01] MEDS: FUROSEMIDE 20 MG/2 ML VIAL IVP SCH (12:22)
[2021-05-01] MEDS: NON ADHERENT DRESSING TP SCH (13:05)
[2021-05-01] MEDS: THERAHONEY GEL 42.5 GM TP SCH (13:05)
[2021-05-01] MEDS: GAUZE TP SCH (13:05)
[2021-05-01] MEDS: MORPHINE SULFATE 2 MG/ML SYR IVP PRN (21:23)
[2021-05-01 22:55] VITALS: BP 133/92
[2021-05-02] MEDS: PIPERACILLIN/TAZOBACTAM 3.375 GM in DEXTROSE 5% 50 ML IV SCH ×2 (01:00→06:45)
[2021-05-02] MEDS: DEXT 5% / NACL 0.45% 1,000 ML IV SCH ×2 (03:30→20:10)
[2021-05-02 06:03] VITALS: BP 136/82
[2021-05-02 08:00] VITALS: BP 105/66
[2021-05-02] MEDS: FUROSEMIDE 20 MG/2 ML VIAL IVP SCH (10:06)
[2021-05-02] MEDS: NICOTINE TRANSD SYS 14 MG/24 HR PATCH TD SCH (10:06)
[2021-05-02] MEDS: methylPREDNISolone SS 40 MG/ML VIAL IVP SCH (10:07)
[2021-05-02] MEDS: ASCORBIC ACID 500 MG TAB PO SCH (10:07)
[2021-05-02] MEDS: MAGNESIUM OXIDE 400 MG TAB NG SCH (10:07)
[2021-05-02] MEDS: ZINC SULF 220 MG CAP PO SCH (10:07)
[2021-05-02 12:36] LABS: BASOPHILS # (AUTO) 0.1 K/uL (0.00-0.22); BASOPHILS % (AUTO) 0.9 % (0.0-2.0); EOSINOPHILS # (AUTO) 0.2 K/uL (0-0.4); EOSINOPHILS % (AUTO) 1.3 % (0.0-4.0); HEMATOCRIT 27.7 % (36-52); HEMOGLOBIN 9.4 g/dL (12.0-18.0); LYMPHOCYTES # (AUTO) 1.4 K/uL (2.0-11.5); LYMPHOCYTES % (AUTO) 10.9 % (20.5-51.1); MEAN CORPUSCULAR HEMOGLOBIN 32 pg (27-31); MEAN CORPUSCULAR HGB CONC 34 g/dL (33-37); MEAN CORPUSCULAR VOLUME 92.7 fL (80-94); MONOCYTES # (AUTO) 0.9 K/uL (0.8-1.0); MONOCYTES % (AUTO) 6.8 % (1.7-9.3); NEUTROPHILS # (AUTO) 10.5 K/uL (1.8-7.7); NEUTROPHILS % (AUTO) 80.1 % (42.2-75.2); PLATELET COUNT (AUTO) 358 K/uL (140-450); RED BLOOD CELL COUNT(AUTO) 2.99 MIL/uL (4.20-6.10); RED CELL DISTRIBUTION WIDTH 17.9 % (11.6-13.7); WHITE BLOOD COUNT (AUTO) 13.2 K/uL (4.8-10.8)
[2021-05-02] MEDS: NON ADHERENT DRESSING TP SCH (13:00)
[2021-05-02] MEDS: GAUZE TP SCH (13:00)
[2021-05-02] MEDS: THERAHONEY GEL 42.5 GM TP SCH (13:00)
[2021-05-02 15:02] LABS: PROTHROMBIN TIME 9.6 secs (10.8-13.4)
[2021-05-02 16:00] VITALS: BP 132/76
[2021-05-02] MEDS: MORPHINE SULFATE 2 MG/ML SYR IVP PRN (19:10)
[2021-05-02 20:00] VITALS: BP 131/76
[2021-05-03 04:31] VITALS: BP 158/82
[2021-05-03 08:00] VITALS: BP 131/67
[2021-05-03] MEDS: methylPREDNISolone SS 40 MG/ML VIAL IVP SCH (09:39)
[2021-05-03] MEDS: FUROSEMIDE 20 MG/2 ML VIAL IVP SCH (09:40)
[2021-05-03] MEDS: ASCORBIC ACID 500 MG TAB PO SCH (09:41)
[2021-05-03] MEDS: ZINC SULF 220 MG CAP PO SCH (09:41)
[2021-05-03] MEDS: MAGNESIUM OXIDE 400 MG TAB NG SCH (09:41)
[2021-05-03] MEDS: NICOTINE TRANSD SYS 14 MG/24 HR PATCH TD SCH (09:42)
[2021-05-03] MEDS: DEXT 5% / NACL 0.45% 1,000 ML IV SCH (12:50)
[2021-05-03] MEDS: GAUZE TP SCH (12:51)
[2021-05-03] MEDS: NON ADHERENT DRESSING TP SCH (12:52)
[2021-05-03] MEDS: THERAHONEY GEL 42.5 GM TP SCH (12:52)
[2021-05-03 16:00] VITALS: BP 130/84
[2021-05-03 20:00] VITALS: BP 133/77
[2021-05-04 04:00] VITALS: BP 128/79
[2021-05-04] MEDS: DEXT 5% / NACL 0.45% 1,000 ML IV SCH ×2 (05:30→23:33)
[2021-05-04 08:00] VITALS: BP 134/89
[2021-05-04] MEDS: ZINC SULF 220 MG CAP PO SCH (09:39)
[2021-05-04] MEDS: ASCORBIC ACID 500 MG TAB PO SCH (09:40)
[2021-05-04] MEDS: NICOTINE TRANSD SYS 14 MG/24 HR PATCH TD SCH (09:40)
[2021-05-04] MEDS: FUROSEMIDE 20 MG/2 ML VIAL IVP SCH (09:40)
[2021-05-04] MEDS: THERAHONEY GEL 42.5 GM TP SCH (12:03)
[2021-05-04] MEDS: NON ADHERENT DRESSING TP SCH (12:03)
[2021-05-04] MEDS: GAUZE TP SCH (12:03)
[2021-05-04 16:00] VITALS: BP 118/67
[2021-05-04 20:00] VITALS: BP 121/83
[2021-05-05 04:00] VITALS: BP 120/68
[2021-05-05 08:00] VITALS: BP 118/67
[2021-05-05] MEDS: ZINC SULF 220 MG CAP PO SCH (09:22)
[2021-05-05] MEDS: FUROSEMIDE 20 MG/2 ML VIAL IVP SCH (09:22)
[2021-05-05] MEDS: ASCORBIC ACID 500 MG TAB PO SCH (09:22)
[2021-05-05] MEDS: NICOTINE TRANSD SYS 14 MG/24 HR PATCH TD SCH (09:23)
[2021-05-05] MEDS: GAUZE TP SCH (12:40)
[2021-05-05] MEDS: THERAHONEY GEL 42.5 GM TP SCH (12:41)
[2021-05-05] MEDS: NON ADHERENT DRESSING TP SCH (12:41)
[2021-05-05] MEDS: DEXT 5% / NACL 0.45% 1,000 ML IV SCH ×2 (14:50→19:03)
[2021-05-05 16:00] VITALS: BP 108/66
[2021-05-06 04:00] VITALS: BP 115/54
[2021-05-06 08:00] VITALS: BP 98/55
[2021-05-06] MEDS: FUROSEMIDE 20 MG/2 ML VIAL IVP SCH (09:07)
[2021-05-06] MEDS: NICOTINE TRANSD SYS 14 MG/24 HR PATCH TD SCH (09:07)
[2021-05-06] MEDS: ZINC SULF 220 MG CAP PO SCH (09:07)
[2021-05-06] MEDS: ASCORBIC ACID 500 MG TAB PO SCH (09:07)
[2021-05-06] MEDS: NON ADHERENT DRESSING TP SCH (13:03)
[2021-05-06] MEDS: GAUZE TP SCH (13:03)
[2021-05-06] MEDS: THERAHONEY GEL 42.5 GM TP SCH (13:03)
[2021-05-06] MEDS: DEXT 5% / NACL 0.45% 1,000 ML IV SCH (13:04)
[2021-05-06 16:00] VITALS: BP 110/59
[2021-05-07] VITALS: BP 121/60
[2021-05-07] MEDS: PIPERACILLIN/TAZOBACTAM 3.375 GM in DEXTROSE 5% 50 ML IV SCH ×5 (05:30→18:00)
[2021-05-07 08:00] VITALS: BP 134/88
[2021-05-07] MEDS: NICOTINE TRANSD SYS 14 MG/24 HR PATCH TD SCH (08:59)
[2021-05-07] MEDS: ZINC SULF 220 MG CAP PO SCH (08:59)
[2021-05-07] MEDS: FUROSEMIDE 20 MG/2 ML VIAL IVP SCH (08:59)
[2021-05-07] MEDS: ASCORBIC ACID 500 MG TAB PO SCH (08:59)
[2021-05-07 09:00] LABS: BASOPHILS # (AUTO) 0.1 K/uL (0.00-0.22); EOSINOPHILS # (AUTO) 0.3 K/uL (0-0.4); EOSINOPHILS % (AUTO) 2.3 % (0.0-4.0); HEMATOCRIT 28.4 % (36-52); HEMOGLOBIN 9.4 g/dL (12.0-18.0); LYMPHOCYTES # (AUTO) 1.4 K/uL (2.0-11.5); LYMPHOCYTES % (AUTO) 12.3 % (20.5-51.1); MEAN CORPUSCULAR HEMOGLOBIN 31 pg (27-31); MEAN CORPUSCULAR HGB CONC 33 g/dL (33-37); MEAN CORPUSCULAR VOLUME 93.8 fL (80-94); MONOCYTES # (AUTO) 0.9 K/uL (0.8-1.0); MONOCYTES % (AUTO) 7.4 % (1.7-9.3); NEUTROPHILS # (AUTO) 9.1 K/uL (1.8-7.7); PLATELET COUNT (AUTO) 515 K/uL (140-450); RED BLOOD CELL COUNT(AUTO) 3.03 MIL/uL (4.20-6.10); RED CELL DISTRIBUTION WIDTH 17.9 % (11.6-13.7); WHITE BLOOD COUNT (AUTO) 11.8 K/uL (4.8-10.8)
[2021-05-07 09:22] LABS: ANION GAP 7.5 (8-16); CREATININE 0.4 mg/dL (0.6-1.3); POTASSIUM 4.5 mmol/L (3.5-5.1)
[2021-05-07 09:26] LABS: MAGNESIUM 1.7 mg/dL (1.8-2.4)
[2021-05-07] MEDS: THERAHONEY GEL 42.5 GM TP SCH ×2 (13:00→13:13)
[2021-05-07] MEDS: NON ADHERENT DRESSING TP SCH (13:13)
[2021-05-07 16:00] VITALS: BP 130/84
[2021-05-07] MEDS: DEXT 5% / NACL 0.45% 1,000 ML IV SCH (17:17)
[2021-05-07] MEDS ORDERED: LIDOCAINE 1% 500 MG/50 ML VIAL ONE (17:41)
[2021-05-07] MEDS ORDERED: BUPIVACAINE MPF 0.25% 10 ML VIAL INJ ONE (17:41)
[2021-05-07] MEDS ORDERED: MIDAZOLAM 2 MG/2 ML VIAL ONE (17:50)
[2021-05-07] MEDS ORDERED: PROPOFOL 200 MG/20 ML VIAL IV ONE (17:51)
[2021-05-07] MEDS ORDERED: fentaNYL citrate 0.05 MG/ML VIAL ONE (17:51)
[2021-05-07] MEDS ORDERED: PIPERACILLIN/TAZOBACTAM 3.375 GM VIAL IV ONE (18:27)
[2021-05-08 04:00] VITALS: BP 111/64
[2021-05-08] MEDS: PIPERACILLIN/TAZOBACTAM 3.375 GM in DEXTROSE 5% 50 ML IV SCH ×6 (06:13→23:32)
[2021-05-08] MEDS: DEXT 5% / NACL 0.45% 1,000 ML IV SCH (06:58)
[2021-05-08 08:00] VITALS: BP 121/67
[2021-05-08] MEDS: NICOTINE TRANSD SYS 14 MG/24 HR PATCH TD SCH (09:08)
[2021-05-08] MEDS: FUROSEMIDE 20 MG/2 ML VIAL IVP SCH (09:09)
[2021-05-08] MEDS: ASCORBIC ACID 500 MG TAB PO SCH (09:09)
[2021-05-08] MEDS: ZINC SULF 220 MG CAP PO SCH (09:09)
[2021-05-08 09:18] LABS: CARBON DIOXIDE 32.1 mmol/L (21-32); CREATININE 0.5 mg/dL (0.6-1.3); POTASSIUM 4.1 mmol/L (3.5-5.1)
[2021-05-08 09:22] LABS: MAGNESIUM 1.7 mg/dL (1.8-2.4); PHOSPHORUS 3.8 mg/dL (2.5-4.9)
[2021-05-08 09:24] LABS: BASOPHILS # (AUTO) 0.1 K/uL (0.00-0.22); BASOPHILS % (AUTO) 0.6 % (0.0-2.0); EOSINOPHILS # (AUTO) 0.2 K/uL (0-0.4); EOSINOPHILS % (AUTO) 1.1 % (0.0-4.0); HEMATOCRIT 26.2 % (36-52); HEMOGLOBIN 8.7 g/dL (12.0-18.0); LYMPHOCYTES # (AUTO) 1.4 K/uL (2.0-11.5); LYMPHOCYTES % (AUTO) 8.8 % (20.5-51.1); MEAN CORPUSCULAR HEMOGLOBIN 31 pg (27-31); MEAN CORPUSCULAR HGB CONC 33 g/dL (33-37); MEAN CORPUSCULAR VOLUME 93.5 fL (80-94); MONOCYTES # (AUTO) 1.1 K/uL (0.8-1.0); MONOCYTES % (AUTO) 6.5 % (1.7-9.3); NEUTROPHILS # (AUTO) 13.4 K/uL (1.8-7.7); PLATELET COUNT (AUTO) 555 K/uL (140-450); RED BLOOD CELL COUNT(AUTO) 2.81 MIL/uL (4.20-6.10); RED CELL DISTRIBUTION WIDTH 17.4 % (11.6-13.7); WHITE BLOOD COUNT (AUTO) 16.2 K/uL (4.8-10.8)
[2021-05-08] MEDS: NON ADHERENT DRESSING TP SCH (13:13)
[2021-05-08] MEDS: THERAHONEY GEL 42.5 GM TP SCH ×2 (13:13)
[2021-05-08 16:00] VITALS: BP 96/53
[2021-05-08 20:00] VITALS: BP 105/56
[2021-05-09] MEDS: DEXT 5% / NACL 0.45% 1,000 ML IV SCH ×2 (01:27→18:50)
[2021-05-09 04:00] VITALS: BP 107/63
[2021-05-09] MEDS: PIPERACILLIN/TAZOBACTAM 3.375 GM in DEXTROSE 5% 50 ML IV SCH ×3 (05:09→19:09)
[2021-05-09 08:00] VITALS: BP 121/67
[2021-05-09] MEDS: NICOTINE TRANSD SYS 14 MG/24 HR PATCH TD SCH (09:52)
[2021-05-09] MEDS: FUROSEMIDE 20 MG/2 ML VIAL IVP SCH (09:53)
[2021-05-09] MEDS: ASCORBIC ACID 500 MG TAB PO SCH (09:53)
[2021-05-09] MEDS: ZINC SULF 220 MG CAP PO SCH (09:53)
[2021-05-09 12:25] LABS: BASOPHILS # (AUTO) 0.1 K/uL (0.00-0.22); BASOPHILS % (AUTO) 1.1 % (0.0-2.0); EOSINOPHILS # (AUTO) 0.2 K/uL (0-0.4); HEMATOCRIT 25.1 % (36-52); HEMOGLOBIN 8.3 g/dL (12.0-18.0); LYMPHOCYTES # (AUTO) 1.3 K/uL (2.0-11.5); LYMPHOCYTES % (AUTO) 10.4 % (20.5-51.1); MEAN CORPUSCULAR HEMOGLOBIN 31 pg (27-31); MEAN CORPUSCULAR HGB CONC 33 g/dL (33-37); MONOCYTES # (AUTO) 0.8 K/uL (0.8-1.0); MONOCYTES % (AUTO) 6.8 % (1.7-9.3); NEUTROPHILS # (AUTO) 9.6 K/uL (1.8-7.7); NEUTROPHILS % (AUTO) 79.7 % (42.2-75.2); PLATELET COUNT (AUTO) 556 K/uL (140-450); RED BLOOD CELL COUNT(AUTO) 2.67 MIL/uL (4.20-6.10); RED CELL DISTRIBUTION WIDTH 17.4 % (11.6-13.7); WHITE BLOOD COUNT (AUTO) 12.1 K/uL (4.8-10.8)
[2021-05-09 12:58] LABS: MAGNESIUM 1.8 mg/dL (1.8-2.4); PHOSPHORUS 4.1 mg/dL (2.5-4.9)
[2021-05-09 13:02] LABS: ANION GAP 9.8 (8-16); CARBON DIOXIDE 33.3 mmol/L (21-32); CREATININE 0.5 mg/dL (0.6-1.3); POTASSIUM 4.1 mmol/L (3.5-5.1)
[2021-05-09] MEDS: THERAHONEY GEL 42.5 GM TP SCH ×2 (13:30→13:31)
[2021-05-09] MEDS: NON ADHERENT DRESSING TP SCH (13:30)
[2021-05-09 16:00] VITALS: BP 127/65
[2021-05-09 20:00] VITALS: BP 138/70
[2021-05-10] MEDS: PIPERACILLIN/TAZOBACTAM 3.375 GM in DEXTROSE 5% 50 ML IV SCH ×5 (00:09→23:14)
[2021-05-10 08:00] VITALS: BP 150/84
[2021-05-10] MEDS: ZINC SULF 220 MG CAP PO SCH (10:06)
[2021-05-10] MEDS: NICOTINE TRANSD SYS 14 MG/24 HR PATCH TD SCH (10:06)
[2021-05-10] MEDS: ASCORBIC ACID 500 MG TAB PO SCH (10:06)
[2021-05-10] MEDS: FUROSEMIDE 20 MG/2 ML VIAL IVP SCH (10:07)
[2021-05-10 10:45] LABS: BASOPHILS # (AUTO) 0.1 K/uL (0.00-0.22); BASOPHILS % (AUTO) 0.7 % (0.0-2.0); EOSINOPHILS # (AUTO) 0.6 K/uL (0-0.4); EOSINOPHILS % (AUTO) 4.9 % (0.0-4.0); HEMATOCRIT 23.3 % (36-52); HEMOGLOBIN 7.7 g/dL (12.0-18.0); LYMPHOCYTES # (AUTO) 1.1 K/uL (2.0-11.5); LYMPHOCYTES % (AUTO) 9.7 % (20.5-51.1); MEAN CORPUSCULAR HEMOGLOBIN 31 pg (27-31); MEAN CORPUSCULAR HGB CONC 33 g/dL (33-37); MEAN CORPUSCULAR VOLUME 94.2 fL (80-94); MONOCYTES % (AUTO) 8.2 % (1.7-9.3); NEUTROPHILS % (AUTO) 76.5 % (42.2-75.2); PLATELET COUNT (AUTO) 499 K/uL (140-450); RED BLOOD CELL COUNT(AUTO) 2.47 MIL/uL (4.20-6.10); RED CELL DISTRIBUTION WIDTH 16.8 % (11.6-13.7); WHITE BLOOD COUNT (AUTO) 11.8 K/uL (4.8-10.8)
[2021-05-10 11:10] LABS: MAGNESIUM 1.7 mg/dL (1.8-2.4); PHOSPHORUS 3.5 mg/dL (2.5-4.9)
[2021-05-10 11:19] LABS: ANION GAP 8.2 (8-16); CREATININE 0.4 mg/dL (0.6-1.3); POTASSIUM 4.2 mmol/L (3.5-5.1)
[2021-05-10] MEDS: DEXT 5% / NACL 0.45% 1,000 ML IV SCH ×2 (11:30→23:15)
[2021-05-10] MEDS ORDERED: MAGNESIUM OXIDE 400 MG TAB PO SCH (12:00)
[2021-05-10] MEDS: NON ADHERENT DRESSING TP SCH (13:37)
[2021-05-10] MEDS: THERAHONEY GEL 42.5 GM TP SCH ×2 (13:38)
[2021-05-10 16:00] VITALS: BP 131/65
[2021-05-10 20:00] VITALS: BP 130/82
[2021-05-11 04:00] VITALS: BP 128/70
[2021-05-11] MEDS: PIPERACILLIN/TAZOBACTAM 3.375 GM in DEXTROSE 5% 50 ML IV SCH ×3 (05:00→17:35)
[2021-05-11 08:00] VITALS: BP 140/77
[2021-05-11] MEDS: NICOTINE TRANSD SYS 14 MG/24 HR PATCH TD SCH (10:02)
[2021-05-11] MEDS: ZINC SULF 220 MG CAP PO SCH (10:03)
[2021-05-11] MEDS: FUROSEMIDE 20 MG/2 ML VIAL IVP SCH (10:03)
[2021-05-11] MEDS: ASCORBIC ACID 500 MG TAB PO SCH (10:03)
[2021-05-11] MEDS: DEXT 5% / NACL 0.45% 1,000 ML IV SCH (10:13)
[2021-05-11] MEDS: NON ADHERENT DRESSING TP SCH (12:27)
[2021-05-11] MEDS: THERAHONEY GEL 42.5 GM TP SCH ×2 (12:27)
[2021-05-11 16:00] VITALS: BP 123/51
[2021-05-12] MEDS: PIPERACILLIN/TAZOBACTAM 3.375 GM in DEXTROSE 5% 50 ML IV SCH ×4 (01:00→18:00)
[2021-05-12 08:00] VITALS: BP 144/71
[2021-05-12] MEDS: FUROSEMIDE 20 MG/2 ML VIAL IVP SCH (09:00)
[2021-05-12] MEDS: ZINC SULF 220 MG CAP PO SCH (09:00)
[2021-05-12] MEDS: ASCORBIC ACID 500 MG TAB PO SCH (09:00)
[2021-05-12] MEDS: NICOTINE TRANSD SYS 14 MG/24 HR PATCH TD SCH ×5 (09:00→17:29)
[2021-05-12] MEDS: THERAHONEY GEL 42.5 GM TP SCH ×2 (13:00)
[2021-05-12] MEDS: NON ADHERENT DRESSING TP SCH (13:00)
[2021-05-12] MEDS: DEXT 5% / NACL 0.45% 1,000 ML IV SCH (13:31)
[2021-05-12 16:00] VITALS: BP 119/51
[2021-05-12 20:00] VITALS: BP 112/96
[2021-05-13] VITALS: BP 104/60
[2021-05-13] MEDS: PIPERACILLIN/TAZOBACTAM 3.375 GM in DEXTROSE 5% 50 ML IV SCH ×5 (06:00→18:03)
[2021-05-13] MEDS: DEXT 5% / NACL 0.45% 1,000 ML IV SCH ×2 (06:10→23:08)
[2021-05-13 07:02] LABS: BASOPHILS # (AUTO) 0.1 K/uL (0.00-0.22); BASOPHILS % (AUTO) 0.9 % (0.0-2.0); EOSINOPHILS # (AUTO) 0.6 K/uL (0-0.4); EOSINOPHILS % (AUTO) 8.2 % (0.0-4.0); HEMATOCRIT 22.9 % (36-52); HEMOGLOBIN 7.8 g/dL (12.0-18.0); LYMPHOCYTES # (AUTO) 1.3 K/uL (2.0-11.5); LYMPHOCYTES % (AUTO) 16.7 % (20.5-51.1); MEAN CORPUSCULAR HEMOGLOBIN 32 pg (27-31); MEAN CORPUSCULAR HGB CONC 34 g/dL (33-37); MEAN CORPUSCULAR VOLUME 92.9 fL (80-94); MONOCYTES # (AUTO) 0.8 K/uL (0.8-1.0); MONOCYTES % (AUTO) 10.7 % (1.7-9.3); NEUTROPHILS # (AUTO) 4.8 K/uL (1.8-7.7); NEUTROPHILS % (AUTO) 63.5 % (42.2-75.2); PLATELET COUNT (AUTO) 533 K/uL (140-450); RED BLOOD CELL COUNT(AUTO) 2.46 MIL/uL (4.20-6.10); RED CELL DISTRIBUTION WIDTH 16.3 % (11.6-13.7); WHITE BLOOD COUNT (AUTO) 7.6 K/uL (4.8-10.8)
[2021-05-13 08:00] VITALS: BP 137/71
[2021-05-13] MEDS: FUROSEMIDE 20 MG/2 ML VIAL IVP SCH (08:32)
[2021-05-13 08:35] LABS: ANION GAP 7.6 (8-16); CARBON DIOXIDE 34.1 mmol/L (21-32); CREATININE 0.4 mg/dL (0.6-1.3); POTASSIUM 4.7 mmol/L (3.5-5.1)
[2021-05-13 08:41] LABS: MAGNESIUM 1.8 mg/dL (1.8-2.4); PHOSPHORUS 3.8 mg/dL (2.5-4.9)
[2021-05-13] MEDS: ZINC SULF 220 MG CAP PO SCH (08:41)
[2021-05-13] MEDS: ASCORBIC ACID 500 MG TAB PO SCH (08:42)
[2021-05-13] MEDS: NICOTINE TRANSD SYS 14 MG/24 HR PATCH TD SCH (08:42)
[2021-05-13] MEDS: ALBUTEROL SULFATE/IPRATROPIU 3 ML SOL IH PRN ×2 (10:07→14:14)
[2021-05-13] MEDS: NON ADHERENT DRESSING TP SCH (12:59)
[2021-05-13] MEDS: THERAHONEY GEL 42.5 GM TP SCH ×2 (13:00)
[2021-05-13 16:00] VITALS: BP 136/68
[2021-05-14] VITALS: BP 122/65
[2021-05-14] MEDS: MENTHOL/ZINC OXIDE 113 GM TUBE TP SCH ×2 (01:12→13:23)
[2021-05-14] MEDS: PIPERACILLIN/TAZOBACTAM 3.375 GM in DEXTROSE 5% 50 ML IV SCH ×4 (06:24→11:49)
[2021-05-14 08:00] VITALS: BP 110/56
[2021-05-14] MEDS: ZINC SULF 220 MG CAP PO SCH (09:19)
[2021-05-14] MEDS: NICOTINE TRANSD SYS 14 MG/24 HR PATCH TD SCH (09:20)
[2021-05-14] MEDS: ASCORBIC ACID 500 MG TAB PO SCH (09:20)
[2021-05-14] MEDS: FUROSEMIDE 20 MG/2 ML VIAL IVP SCH (09:21)
[2021-05-14] MEDS: DEXT 5% / NACL 0.45% 1,000 ML IV SCH (12:00)
[2021-05-14] MEDS: GAUZE TP SCH (13:24)
[2021-05-14] MEDS: NON ADHERENT DRESSING TP SCH (13:25)
[2021-05-14] MEDS: THERAHONEY GEL 42.5 GM TP SCH (13:25)
[2021-05-14] MEDS: ALBUTEROL SULFATE/IPRATROPIU 3 ML SOL IH PRN (13:57)
[2021-05-14 16:00] VITALS: BP 119/61
[2021-05-14] MEDS: FOAM DRESSING TP SCH (17:28)
[2021-05-15] VITALS: BP 106/51
[2021-05-15] MEDS: MENTHOL/ZINC OXIDE 113 GM TUBE TP SCH ×2 (01:00→12:58)
[2021-05-15 08:00] VITALS: BP 137/65
[2021-05-15] MEDS: DEXT 5% / NACL 0.45% 1,000 ML IV SCH (09:00)
[2021-05-15] MEDS: FUROSEMIDE 20 MG/2 ML VIAL IVP SCH (09:00)
[2021-05-15] MEDS: ASCORBIC ACID 500 MG TAB PO SCH (09:00)
[2021-05-15] MEDS: ZINC SULF 220 MG CAP PO SCH (09:00)
[2021-05-15] MEDS: NICOTINE TRANSD SYS 14 MG/24 HR PATCH TD SCH (09:00)
[2021-05-15] MEDS: GAUZE TP SCH (12:58)
[2021-05-15] MEDS: THERAHONEY GEL 42.5 GM TP SCH (12:59)
[2021-05-15] MEDS: NON ADHERENT DRESSING TP SCH (12:59)
[2021-05-15 16:00] VITALS: BP 140/66
[2021-05-16 00:35] VITALS: BP 115/69
[2021-05-16] MEDS: ACETAMINOPHEN 325 MG TAB PO PRN ×3 (00:36→17:03)
[2021-05-16] MEDS: DEXT 5% / NACL 0.45% 1,000 ML IV SCH ×2 (00:50→17:03)
[2021-05-16] MEDS: MENTHOL/ZINC OXIDE 113 GM TUBE TP SCH ×2 (01:00→12:58)
[2021-05-16 08:00] VITALS: BP 124/72
[2021-05-16] MEDS: FUROSEMIDE 20 MG/2 ML VIAL IVP SCH (09:00)
[2021-05-16] MEDS: ZINC SULF 220 MG CAP PO SCH (09:00)
[2021-05-16] MEDS: ASCORBIC ACID 500 MG TAB PO SCH (09:00)
[2021-05-16] MEDS: NICOTINE TRANSD SYS 14 MG/24 HR PATCH TD SCH (09:00)
[2021-05-16] MEDS: NON ADHERENT DRESSING TP SCH (12:58)
[2021-05-16] MEDS: THERAHONEY GEL 42.5 GM TP SCH (12:58)
[2021-05-16] MEDS: GAUZE TP SCH (12:58)
[2021-05-16 16:00] VITALS: BP 104/72
[2021-05-17] MEDS: MENTHOL/ZINC OXIDE 113 GM TUBE TP SCH ×2 (01:00→13:00)
[2021-05-17 08:00] VITALS: BP 126/52
[2021-05-17] MEDS: FOAM DRESSING TP SCH (09:00)
[2021-05-17] MEDS: ASCORBIC ACID 500 MG TAB PO SCH (09:59)
[2021-05-17] MEDS: NICOTINE TRANSD SYS 14 MG/24 HR PATCH TD SCH (09:59)
[2021-05-17] MEDS: FUROSEMIDE 20 MG/2 ML VIAL IVP SCH (09:59)
[2021-05-17] MEDS: ZINC SULF 220 MG CAP PO SCH (09:59)
[2021-05-17] MEDS: ACETAMINOPHEN 325 MG TAB PO PRN (10:00)
[2021-05-17] MEDS: DEXT 5% / NACL 0.45% 1,000 ML IV SCH (10:10)
[2021-05-17] MEDS: THERAHONEY GEL 42.5 GM TP SCH (13:00)
[2021-05-17] MEDS: NON ADHERENT DRESSING TP SCH (13:00)
[2021-05-17] MEDS: GAUZE TP SCH (13:00)
[2021-05-17 16:00] VITALS: BP 97/54
[2021-05-18] VITALS: BP 106/60
[2021-05-18] MEDS: MENTHOL/ZINC OXIDE 113 GM TUBE TP SCH ×2 (01:00→13:00)
[2021-05-18] MEDS: DEXT 5% / NACL 0.45% 1,000 ML IV SCH ×2 (02:50→14:55)
[2021-05-18 08:00] VITALS: BP 155/90
[2021-05-18] MEDS: NICOTINE TRANSD SYS 14 MG/24 HR PATCH TD SCH (09:00)
[2021-05-18] MEDS: ZINC SULF 220 MG CAP PO SCH (09:00)
[2021-05-18] MEDS: FUROSEMIDE 20 MG/2 ML VIAL IVP SCH (09:59)
[2021-05-18] MEDS: ASCORBIC ACID 500 MG TAB PO SCH (09:59)
[2021-05-18] MEDS: THERAHONEY GEL 42.5 GM TP SCH (13:00)
[2021-05-18] MEDS: GAUZE TP SCH (13:00)
[2021-05-18] MEDS: NON ADHERENT DRESSING TP SCH (13:00)
[2021-05-18 13:03] LABS: BASOPHILS # (AUTO) 0.1 K/uL (0.00-0.22); BASOPHILS % (AUTO) 0.7 % (0.0-2.0); EOSINOPHILS # (AUTO) 0.4 K/uL (0-0.4); EOSINOPHILS % (AUTO) 3.7 % (0.0-4.0); HEMATOCRIT 25.1 % (36-52); HEMOGLOBIN 8.5 g/dL (12.0-18.0); LYMPHOCYTES # (AUTO) 1.5 K/uL (2.0-11.5); LYMPHOCYTES % (AUTO) 14.2 % (20.5-51.1); MEAN CORPUSCULAR HEMOGLOBIN 31 pg (27-31); MEAN CORPUSCULAR HGB CONC 34 g/dL (33-37); MEAN CORPUSCULAR VOLUME 93.3 fL (80-94); MONOCYTES % (AUTO) 9.5 % (1.7-9.3); NEUTROPHILS # (AUTO) 7.5 K/uL (1.8-7.7); NEUTROPHILS % (AUTO) 71.9 % (42.2-75.2); PLATELET COUNT (AUTO) 753 K/uL (140-450); RED BLOOD CELL COUNT(AUTO) 2.69 MIL/uL (4.20-6.10); RED CELL DISTRIBUTION WIDTH 16.1 % (11.6-13.7); WHITE BLOOD COUNT (AUTO) 10.4 K/uL (4.8-10.8)
[2021-05-18 13:22] LABS: ALBUMIN 1.4 g/dL (3.4-5.0); ANION GAP 8.8 (8-16); CARBON DIOXIDE 32.4 mmol/L (21-32); CREATININE 0.4 mg/dL (0.6-1.3); MAGNESIUM 1.8 mg/dL (1.8-2.4); POTASSIUM 4.2 mmol/L (3.5-5.1); TOTAL BILIRUBIN 0.3 mg/dL (0.0-1.0)
[2021-05-18 14:11] LABS: MAGNESIUM 3.4 mg/dL (1.8-2.4); PHOSPHORUS 5.5 mg/dL (2.5-4.9)
[2021-05-18 16:00] VITALS: BP 115/70
[2021-05-19] VITALS: BP 102/46
[2021-05-19] MEDS: MENTHOL/ZINC OXIDE 113 GM TUBE TP SCH ×2 (00:26→13:00)
[2021-05-19] MEDS: ACETAMINOPHEN 325 MG TAB PO PRN ×2 (00:58→09:47)
[2021-05-19 07:35] LABS: BASOPHILS % (AUTO) 0.4 % (0.0-2.0); EOSINOPHILS # (AUTO) 0.6 K/uL (0-0.4); EOSINOPHILS % (AUTO) 7.1 % (0.0-4.0); HEMATOCRIT 23.6 % (36-52); LYMPHOCYTES # (AUTO) 1.6 K/uL (2.0-11.5); LYMPHOCYTES % (AUTO) 17.8 % (20.5-51.1); MEAN CORPUSCULAR HEMOGLOBIN 32 pg (27-31); MEAN CORPUSCULAR HGB CONC 34 g/dL (33-37); MEAN CORPUSCULAR VOLUME 92.7 fL (80-94); MONOCYTES % (AUTO) 11.6 % (1.7-9.3); NEUTROPHILS # (AUTO) 5.6 K/uL (1.8-7.7); NEUTROPHILS % (AUTO) 63.1 % (42.2-75.2); PLATELET COUNT (AUTO) 681 K/uL (140-450); RED BLOOD CELL COUNT(AUTO) 2.54 MIL/uL (4.20-6.10); RED CELL DISTRIBUTION WIDTH 16.4 % (11.6-13.7); WHITE BLOOD COUNT (AUTO) 8.9 K/uL (4.8-10.8)
[2021-05-19 07:45] LABS: ANION GAP 7.9 (8-16); CARBON DIOXIDE 32.7 mmol/L (21-32); CREATININE 0.4 mg/dL (0.6-1.3); POTASSIUM 4.6 mmol/L (3.5-5.1)
[2021-05-19 07:58] LABS: MAGNESIUM 1.8 mg/dL (1.8-2.4); PHOSPHORUS 4.9 mg/dL (2.5-4.9)
[2021-05-19 08:00] VITALS: BP 144/68
[2021-05-19] MEDS: ZINC SULF 220 MG CAP PO SCH (09:37)
[2021-05-19] MEDS: FUROSEMIDE 20 MG/2 ML VIAL IVP SCH (09:37)
[2021-05-19] MEDS: ASCORBIC ACID 500 MG TAB PO SCH (09:37)
[2021-05-19] MEDS: DEXT 5% / NACL 0.45% 1,000 ML IV SCH (12:10)
[2021-05-19] MEDS: NON ADHERENT DRESSING TP SCH (13:00)
[2021-05-19] MEDS: THERAHONEY GEL 42.5 GM TP SCH (13:00)
[2021-05-19] MEDS: GAUZE TP SCH (13:00)
[2021-05-19 16:00] VITALS: BP 108/53
[2021-05-20] VITALS: BP 110/62
[2021-05-20] MEDS: MENTHOL/ZINC OXIDE 113 GM TUBE TP SCH ×2 (00:23→13:04)
[2021-05-20 01:00] VITALS: BP 120/82
[2021-05-20 06:26] LABS: ANION GAP 7.6 (8-16); CARBON DIOXIDE 31.8 mmol/L (21-32); CREATININE 0.3 mg/dL (0.6-1.3); POTASSIUM 4.4 mmol/L (3.5-5.1)
[2021-05-20 06:37] LABS: BASOPHILS % (AUTO) 0.2 % (0.0-2.0); EOSINOPHILS # (AUTO) 0.7 K/uL (0-0.4); EOSINOPHILS % (AUTO) 8.4 % (0.0-4.0); HEMATOCRIT 21.9 % (36-52); HEMOGLOBIN 7.3 g/dL (12.0-18.0); LYMPHOCYTES # (AUTO) 1.5 K/uL (2.0-11.5); MEAN CORPUSCULAR HEMOGLOBIN 31 pg (27-31); MEAN CORPUSCULAR HGB CONC 33 g/dL (33-37); MEAN CORPUSCULAR VOLUME 93.1 fL (80-94); MONOCYTES # (AUTO) 0.9 K/uL (0.8-1.0); MONOCYTES % (AUTO) 10.7 % (1.7-9.3); NEUTROPHILS # (AUTO) 5.3 K/uL (1.8-7.7); NEUTROPHILS % (AUTO) 62.7 % (42.2-75.2); PLATELET COUNT (AUTO) 633 K/uL (140-450); RED BLOOD CELL COUNT(AUTO) 2.35 MIL/uL (4.20-6.10); RED CELL DISTRIBUTION WIDTH 15.7 % (11.6-13.7); WHITE BLOOD COUNT (AUTO) 8.5 K/uL (4.8-10.8)
[2021-05-20 06:45] LABS: MAGNESIUM 1.7 mg/dL (1.8-2.4)
[2021-05-20 07:32] LABS: PHOSPHORUS 3.9 mg/dL (2.5-4.9)
[2021-05-20 08:00] VITALS: BP 118/72
[2021-05-20] MEDS: ZINC SULF 220 MG CAP PO SCH (09:00)
[2021-05-20] MEDS: FUROSEMIDE 20 MG/2 ML VIAL IVP SCH (09:00)
[2021-05-20] MEDS: ASCORBIC ACID 500 MG TAB PO SCH (09:00)
[2021-05-20] MEDS: FOAM DRESSING TP SCH (09:56)
[2021-05-20] MEDS: GAUZE TP SCH (13:04)
[2021-05-20] MEDS: NON ADHERENT DRESSING TP SCH (13:04)
[2021-05-20] MEDS: THERAHONEY GEL 42.5 GM TP SCH (13:04)
[2021-05-20 16:00] VITALS: BP 124/68
[2021-05-20 20:00] VITALS: BP 130/79
[2021-05-21] MEDS: DEXT 5% / NACL 0.45% 1,000 ML IV SCH ×3 (01:16→22:20)
[2021-05-21] MEDS: MENTHOL/ZINC OXIDE 113 GM TUBE TP SCH ×2 (01:16→12:57)
[2021-05-21 04:00] VITALS: BP 126/68
[2021-05-21] MEDS: ACETAMINOPHEN 325 MG TAB PO PRN (05:56)
[2021-05-21 06:21] LABS: BASOPHILS # (AUTO) 0.1 K/uL (0.00-0.22); BASOPHILS % (AUTO) 1.2 % (0.0-2.0); EOSINOPHILS # (AUTO) 0.5 K/uL (0-0.4); EOSINOPHILS % (AUTO) 5.6 % (0.0-4.0); HEMATOCRIT 27.2 % (36-52); LYMPHOCYTES # (AUTO) 1.6 K/uL (2.0-11.5); LYMPHOCYTES % (AUTO) 18.2 % (20.5-51.1); MEAN CORPUSCULAR HEMOGLOBIN 31 pg (27-31); MEAN CORPUSCULAR HGB CONC 33 g/dL (33-37); MEAN CORPUSCULAR VOLUME 92.5 fL (80-94); MONOCYTES # (AUTO) 0.9 K/uL (0.8-1.0); MONOCYTES % (AUTO) 10.1 % (1.7-9.3); NEUTROPHILS # (AUTO) 5.8 K/uL (1.8-7.7); NEUTROPHILS % (AUTO) 64.9 % (42.2-75.2); PLATELET COUNT (AUTO) 794 K/uL (140-450); RED BLOOD CELL COUNT(AUTO) 2.95 MIL/uL (4.20-6.10)
[2021-05-21 06:46] LABS: MAGNESIUM 1.8 mg/dL (1.8-2.4); PHOSPHORUS 4.4 mg/dL (2.5-4.9)
[2021-05-21 06:56] LABS: ANION GAP 11.9 (8-16); CARBON DIOXIDE 28.4 mmol/L (21-32); CREATININE 0.4 mg/dL (0.6-1.3); POTASSIUM 4.3 mmol/L (3.5-5.1)
[2021-05-21 08:00] VITALS: BP 94/59
[2021-05-21] MEDS: ZINC SULF 220 MG CAP PO SCH (09:14)
[2021-05-21] MEDS: FUROSEMIDE 20 MG/2 ML VIAL IVP SCH (09:14)
[2021-05-21] MEDS: ASCORBIC ACID 500 MG TAB PO SCH (09:14)
[2021-05-21] MEDS: THERAHONEY GEL 42.5 GM TP SCH (12:58)
[2021-05-21] MEDS: GAUZE TP SCH (12:58)
[2021-05-21] MEDS: NON ADHERENT DRESSING TP SCH (12:58)
[2021-05-21 20:00] VITALS: BP 104/56
[2021-05-22] MEDS: MENTHOL/ZINC OXIDE 113 GM TUBE TP SCH ×2 (01:00→11:34)
[2021-05-22 04:00] VITALS: BP 102/58
[2021-05-22 08:00] VITALS: BP 130/68
[2021-05-22] MEDS: ALBUTEROL SULFATE/IPRATROPIU 3 ML SOL IH PRN (08:07)
[2021-05-22] MEDS: DEXT 5% / NACL 0.45% 1,000 ML IV SCH (08:50)
[2021-05-22] MEDS: ASCORBIC ACID 500 MG TAB PO SCH (09:00)
[2021-05-22] MEDS: ZINC SULF 220 MG CAP PO SCH (09:00)
[2021-05-22] MEDS: FUROSEMIDE 20 MG/2 ML VIAL IVP SCH (09:41)
[2021-05-22] MEDS: GAUZE TP SCH (11:34)
[2021-05-22] MEDS: THERAHONEY GEL 42.5 GM TP SCH (11:35)
[2021-05-22] MEDS: NON ADHERENT DRESSING TP SCH (11:35)
[2021-05-22 20:00] VITALS: BP 117/63
[2021-05-23] MEDS: MENTHOL/ZINC OXIDE 113 GM TUBE TP SCH ×2 (02:32→13:11)
[2021-05-23] MEDS: DEXT 5% / NACL 0.45% 1,000 ML IV SCH ×2 (02:33→17:46)
[2021-05-23 04:00] VITALS: BP 108/72
[2021-05-23] MEDS: ACETAMINOPHEN 325 MG TAB PO PRN (05:17)
[2021-05-23] MEDS: ASCORBIC ACID 500 MG TAB PO SCH (08:44)
[2021-05-23] MEDS: ZINC SULF 220 MG CAP PO SCH (08:44)
[2021-05-23] MEDS: FUROSEMIDE 20 MG/2 ML VIAL IVP SCH (08:45)
[2021-05-23] MEDS: FOAM DRESSING TP SCH (09:00)
[2021-05-23] MEDS: GAUZE TP SCH (13:11)
[2021-05-23] MEDS: NON ADHERENT DRESSING TP SCH (13:18)
[2021-05-23] MEDS: THERAHONEY GEL 42.5 GM TP SCH (13:18)
[2021-05-23 22:44] VITALS: BP 113/71
[2021-05-24] MEDS: MENTHOL/ZINC OXIDE 113 GM TUBE TP SCH ×2 (01:00→12:23)
[2021-05-24 04:17] VITALS: BP 115/69
[2021-05-24] MEDS: ACETAMINOPHEN 325 MG TAB PO PRN (05:46)
[2021-05-24 08:47] LABS: CARBON DIOXIDE 29.7 mmol/L (21-32); CREATININE 0.3 mg/dL (0.6-1.3); POTASSIUM 4.7 mmol/L (3.5-5.1)
[2021-05-24] MEDS: ASCORBIC ACID 500 MG TAB PO SCH (09:00)
[2021-05-24] MEDS: ZINC SULF 220 MG CAP PO SCH (09:00)
[2021-05-24 09:13] LABS: BASOPHILS # (AUTO) 0.2 K/uL (0.00-0.22); BASOPHILS % (AUTO) 2.1 % (0.0-2.0); EOSINOPHILS # (AUTO) 0.3 K/uL (0-0.4); EOSINOPHILS % (AUTO) 3.6 % (0.0-4.0); HEMATOCRIT 23.1 % (36-52); HEMOGLOBIN 7.7 g/dL (12.0-18.0); LYMPHOCYTES # (AUTO) 1.7 K/uL (2.0-11.5); LYMPHOCYTES % (AUTO) 19.4 % (20.5-51.1); MEAN CORPUSCULAR HEMOGLOBIN 31 pg (27-31); MEAN CORPUSCULAR HGB CONC 33 g/dL (33-37); MEAN CORPUSCULAR VOLUME 91.2 fL (80-94); MONOCYTES # (AUTO) 0.9 K/uL (0.8-1.0); MONOCYTES % (AUTO) 10.3 % (1.7-9.3); NEUTROPHILS # (AUTO) 5.8 K/uL (1.8-7.7); NEUTROPHILS % (AUTO) 64.6 % (42.2-75.2); PLATELET COUNT (AUTO) 565 K/uL (140-450); RED BLOOD CELL COUNT(AUTO) 2.53 MIL/uL (4.20-6.10); RED CELL DISTRIBUTION WIDTH 15.5 % (11.6-13.7)
[2021-05-24] MEDS: FUROSEMIDE 20 MG/2 ML VIAL IVP SCH (10:07)
[2021-05-24] MEDS: DEXT 5% / NACL 0.45% 1,000 ML IV SCH (11:37)
[2021-05-24] MEDS: NON ADHERENT DRESSING TP SCH (12:23)
[2021-05-24] MEDS: GAUZE TP SCH (12:23)
[2021-05-24] MEDS: THERAHONEY GEL 42.5 GM TP SCH (12:24)
[2021-05-24 16:00] VITALS: BP 103/55
[2021-05-24] MEDS ORDERED: BUPIVACAINE-MPF/EPI 0.25% 10 ML VIAL INJ ONE (17:18)
[2021-05-24 20:00] VITALS: BP 95/53
[2021-05-24] MEDS: ALBUTEROL SULFATE/IPRATROPIU 3 ML SOL IH PRN (21:04)
[2021-05-25] MEDS: MENTHOL/ZINC OXIDE 113 GM TUBE TP SCH ×2 (01:22→12:44)
[2021-05-25] MEDS: DEXT 5% / NACL 0.45% 1,000 ML IV SCH ×2 (03:38→21:30)
[2021-05-25 04:00] VITALS: BP_SYST 109; BP_SYST 99; BP_DIAS 66; BP_DIAS 67
[2021-05-25 08:00] VITALS: BP 102/60
[2021-05-25] MEDS: ASCORBIC ACID 500 MG TAB PO SCH (09:07)
[2021-05-25] MEDS: ZINC SULF 220 MG CAP PO SCH (09:07)
[2021-05-25] MEDS: CEFEPIME 1,000 MG in DEXTROSE 5% 50 ML IV SCH ×2 (09:48→21:30)
[2021-05-25] MEDS: FUROSEMIDE 20 MG/2 ML VIAL IVP SCH (09:48)
[2021-05-25] MEDS: GAUZE TP SCH (12:44)
[2021-05-25] MEDS: NON ADHERENT DRESSING TP SCH (12:44)
[2021-05-25] MEDS: THERAHONEY GEL 42.5 GM TP SCH (12:45)
[2021-05-25 20:00] VITALS: BP 141/66
== END 2021-05-26 00:35 | disposition left against medical advice (07) | DRG 853 ==
LOC: MED 11:04 → MTU 18:11 → MIC 03-26 11:08 → MTU 03-29 04:35 → MIC 03-30 22:19 → MMU 04-11 17:45
PROVIDERS: ADMIT Family Medicine; ATTEND Family Medicine
PROC: 0BH17EZ Insertion of Endotracheal Airway into Trachea, Via Natural or Artificial Opening (ICD-10-PCS; 2021-03-26)
PROC: 5A1945Z Respiratory Ventilation, 24-96 Consecutive Hours (ICD-10-PCS; 2021-03-26)
PROC: 02HV33Z Insertion of Infusion Device into Superior Vena Cava, Percutaneous Approach (ICD-10-PCS; 2021-03-27)
PROC: B548ZZA Ultrasonography of Superior Vena Cava, Guidance (ICD-10-PCS; 2021-03-27)
PROC: 5A1955Z Respiratory Ventilation, Greater than 96 Consecutive Hours (ICD-10-PCS; principal; 2021-03-30)
PROC: 0BH17EZ Insertion of Endotracheal Airway into Trachea, Via Natural or Artificial Opening (ICD-10-PCS; 2021-03-30)
PROC: 0W9B3ZZ Drainage of Left Pleural Cavity, Percutaneous Approach (ICD-10-PCS; 2021-04-01)
PROC: 05HY33Z Insertion of Infusion Device into Upper Vein, Percutaneous Approach (ICD-10-PCS; 2021-04-17)
PROC: B54NZZA Ultrasonography of Left Upper Extremity Veins, Guidance (ICD-10-PCS; 2021-04-17)
PROC: 0Y6C0Z3 Detachment at Right Upper Leg, Low, Open Approach (ICD-10-PCS; 2021-04-25)
PROC: 0JB70ZZ Excision of Back Subcutaneous Tissue and Fascia, Open Approach (ICD-10-PCS; 2021-05-01)
PROC: 0JBL0ZZ Excision of Right Upper Leg Subcutaneous Tissue and Fascia, Open Approach (ICD-10-PCS; 2021-05-01)
PROC: 0JQL0ZZ Repair Right Upper Leg Subcutaneous Tissue and Fascia, Open Approach (ICD-10-PCS; 2021-05-07)
PROC: 3E1038Z Irrigation of Skin and Mucous Membranes using Irrigating Substance, Percutaneous Approach (ICD-10-PCS; 2021-05-07)
DX: A41.9 Sepsis, unspecified organism (principal); J96.01 Acute respiratory failure with hypoxia; J12.82 Pneumonia due to coronavirus disease 2019; U07.1 COVID-19; J15.9 Unspecified bacterial pneumonia; E43 Unspecified severe protein-calorie malnutrition; G92.9 Unspecified toxic encephalopathy; L03.116 Cellulitis of left lower limb; I96 Gangrene, not elsewhere classified; Z68.1 Body mass index [BMI] 19.9 or less, adult; E87.1 Hypo-osmolality and hyponatremia; D68.59 Other primary thrombophilia; T81.30XA Disruption of wound, unspecified, initial encounter; J44.0 Chronic obstructive pulmonary disease with (acute) lower respiratory infection; J90 Pleural effusion, not elsewhere classified; T40.5X1A Poisoning by cocaine, accidental (unintentional), initial encounter; L89.159 Pressure ulcer of sacral region, unspecified stage; K86.89 Other specified diseases of pancreas; F17.200 Nicotine dependence, unspecified, uncomplicated; D64.9 Anemia, unspecified; F32.A Depression, unspecified; R13.11 Dysphagia, oral phase; T42.4X1A Poisoning by benzodiazepines, accidental (unintentional), initial encounter; D69.6 Thrombocytopenia, unspecified; E83.42 Hypomagnesemia; S31.000A Unspecified open wound of lower back and pelvis without penetration into retroperitoneum, initial encounter; X58.XXXA Exposure to other specified factors, initial encounter; Y82.8 Other medical devices associated with adverse incidents; I10 Essential (primary) hypertension; T38.0X5A Adverse effect of glucocorticoids and synthetic analogues, initial encounter; E87.6 Hypokalemia; E87.5 Hyperkalemia; Z91.19 Patient's noncompliance with other medical treatment and regimen; Z91.14 Patient's other noncompliance with medication regimen; Z89.511 Acquired absence of right leg below knee; Z79.2 Long term (current) use of antibiotics; Z79.899 Other long term (current) drug therapy; Y92.89 Other specified places as the place of occurrence of the external cause; Y93.89 Activity, other specified; Y99.8 Other external cause status
CPT/HCPCS: 31500; 36415; 36600; 70450; 71045; 76604; 76942; 80048; 80053; 80076; 80305; 81001; 82150; 82272; 82553; 82803; 82945; 82948; 83036; 83605; 83615; 83690; 83735; 83880; 84100; 84157; 84436; 84439; 84443; 84479; 84484; 85025; 85379; 85610; 85651; 85730; 86140; 86886; 86900; 86901; 86920; 87040; 87070; 87075; 87081; 87086; 87186; 87205; 87804; 88304; 88305; 88311; 88313; 88342; 89051; 89220; 92526; 93005; 93971; 94002; 94003; 94640; 94667; 96365; 96366; 96367; 96372; 97110; 97112; 97163-GP; 97530; 99285; C9113; J0690; J0692; J1170; J1200; J1630; J1644; J1885; J1940; J2001; J2060; J2250; J2270; J2405; J2543; J2704; J2920; J2930; J3010; J3262; J3370; J3480; J3490; J7030; J7060; J7120; P9046; Q0092; Q9967; U0003

== ENCOUNTER 2021-05-26 03:57 | Inpatient (IN) | payer MEDICAID, SELFPAY ==
[~2021-05-26] VITALS: Ht 175.3 cm; Wt 52.2 kg
[2021-05-26 04:10] VITALS: BP 151/71
--- NOTE | 2021-05-26 04:13 | NUR ---
TO LOBBY A/W BED VIA W/C
--- NOTE | 2021-05-26 05:13 | NUR ---
pt taken to bed 06 via w/c.
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
--- NOTE | 2021-05-26 06:06 | NUR ---
Dr. Post at bedside to exam patient.
[2021-05-26] MEDS ORDERED: CEFEPIME 2,000 MG in DEXTROSE 5% 100 ML IV ONE (06:30)
--- NOTE | 2021-05-26 06:39 | NUR ---
Med rec reviewed with patient's family.
--- NOTE | 2021-05-26 06:40 | NUR ---
Blood for labwork drawn from left arm per pitch worker. Patient tolerated well.
[2021-05-26] MEDS ORDERED: CEFEPIME 2,000 MG VIAL IV ONE (06:44)
--- NOTE | 2021-05-26 06:47 | NUR ---
Patient transfer to CT scan via gurney with diesel technician mechanic.
[2021-05-26 07:04] LABS: BASOPHILS # (AUTO) 0.1 K/uL (0.00-0.22); BASOPHILS % (AUTO) 0.7 % (0.0-2.0); EOSINOPHILS # (AUTO) 0.1 K/uL (0-0.4); EOSINOPHILS % (AUTO) 0.6 % (0.0-4.0); HEMOGLOBIN 8.3 g/dL (12.0-18.0); LYMPHOCYTES # (AUTO) 1.3 K/uL (2.0-11.5); LYMPHOCYTES % (AUTO) 10.5 % (20.5-51.1); MEAN CORPUSCULAR HEMOGLOBIN 30 pg (27-31); MEAN CORPUSCULAR HGB CONC 33 g/dL (33-37); MEAN CORPUSCULAR VOLUME 90.2 fL (80-94); MONOCYTES # (AUTO) 1.5 K/uL (0.8-1.0); MONOCYTES % (AUTO) 11.7 % (1.7-9.3); NEUTROPHILS # (AUTO) 9.6 K/uL (1.8-7.7); NEUTROPHILS % (AUTO) 76.5 % (42.2-75.2); PLATELET COUNT (AUTO) 665 K/uL (140-450); RED BLOOD CELL COUNT(AUTO) 2.77 MIL/uL (4.20-6.10); RED CELL DISTRIBUTION WIDTH 15.5 % (11.6-13.7); WHITE BLOOD COUNT (AUTO) 12.6 K/uL (4.8-10.8)
[2021-05-26 07:27] LABS: ALBUMIN 1.4 g/dL (3.4-5.0); ANION GAP 9.3 (8-16); CARBON DIOXIDE 30.2 mmol/L (21-32); CREATININE 0.4 mg/dL (0.6-1.3); POTASSIUM 4.5 mmol/L (3.5-5.1); TOTAL BILIRUBIN 0.3 mg/dL (0.0-1.0)
--- NOTE | 2021-05-26 07:30 | NUR ---
Report given to TEAGAN Westfall and endorse care of patient.
--- NOTE | 2021-05-26 08:05 | NUR ---
Report and continuation of care received from TEAGAN Westfall.
--- NOTE | 2021-05-26 08:05 | NUR ---
REPORT GIVEN TO AICHA CANDELARIA. TRANSFER OF CARE AT THIS TIME.
--- NOTE | 2021-05-26 08:10 | NUR ---
Patient noted to have existing wounds upon arrival to ER. Photos taken of wound and placed in chart. Wound covered with dressing. Physician informed.
--- NOTE | 2021-05-26 08:11 | NUR ---
Wound dressings applied to sacral, back, L elbow.
--- NOTE | 2021-05-26 08:30 | NUR ---
Received patient who is resting on R side with spouse at bedside. Pillow applied; stan care performed and new diaper and thu in place. Wound photos taken and attached onto chart.
[2021-05-26] MEDS ORDERED: MORPHINE SULFATE 2 MG/ML SYR IVP PRN (09:30)
[2021-05-26] MEDS ORDERED: ONDANSETRON 4 MG/2 ML VIAL IVP PRN (09:30)
--- NOTE | 2021-05-26 09:40 | NUR ---
Pt c/o pain; requesting medication at this time. Dr Post made aware and verbal order received for Morphine 2mg IVP. Read back and verified in person.
[2021-05-26] MEDS ORDERED: MORPHINE SULFATE 2 MG/ML SYR IVP ONE (09:50)
--- NOTE | 2021-05-26 10:45 | NUR ---
Patient with damp diaper; diaper replaced and repositioned to left side assisted by EMT. Pillows wedged to R side.
--- NOTE | 2021-05-26 11:41 | NUR ---
Pt assisted with void; 225mL clear/yellow urine discarded
--- NOTE | 2021-05-26 11:42 | NUR ---
Pt states no pain at this time after being repositioned. All pt needs met.
--- NOTE | 2021-05-26 11:59 | NUR ---
Pt repositioned to R sidel pillows wedged to L upper back per request.
[2021-05-26] MEDS: DEXT 5% / NACL 0.45% 1,000 ML IV SCH (13:00)
--- NOTE | 2021-05-26 13:24 | NUR ---
Report given to Roman Zuñiga RN.
--- NOTE | 2021-05-26 13:37 | NUR ---
Patient will be admitted to care of Dr. Scott. Admited to Telemetry Will go to [id number]. Belongings list completed. Report to Roman Zuñiga RN.
--- NOTE | 2021-05-26 14:41 | NUR ---
PT RECEIVED FROM ER. PT AOx3/4, VSS, DENIES PAIN. PT HAS MULTIPLE WOUNDS.
--- NOTE | 2021-05-26 15:04 | NUR ---
CONTACTED [facility], SPOKE WITH UZIEL STATED THAT THEY WILL CALL BACK FOR THE TIME FOR TELE HEALTH CALL WITH PSYCH DR. CROWLEY. CLINICALS FAXED TO [facility], CONFIRMATION ATTACHED TO CHART.
[2021-05-26 15:05] VITALS: BP 105/52
--- NOTE | 2021-05-26 16:30 | NUR ---
UZIEL FROM [facility] CALLED, DR. CROWLEY WILL CALL AT 1700 HRS FOR FACETIME. TANIA CANDELARIA ASSIGNED MADE AWARE.
[2021-05-26] MEDS: CEFEPIME 1,000 MG in DEXTROSE 5% 50 ML IV SCH (17:41)
--- NOTE | 2021-05-26 18:26 | NUR ---
ACCORDING TO PSYCH MD, SHE FOUND NO SPECIFIC REASON FOR CONSULT WITH PT. DR. JIMENEZ MADE AWARE AND STATED ITS OKAY TO HOLD OFF ON CONSULT RIGHT NOW AND WILL FOLLOW UP.
--- NOTE | 2021-05-26 18:52 | NUR ---
WOUND CARE PERFORMED, PT IN STABLE CONDITION, WILL ENDORSE CARE TO STAFF HOME THERAPY RN RN.
--- NOTE | 2021-05-26 19:08 | NUR ---
ENDORSED CARE TO TRUST AND ESTATES PARALEGAL RN.
--- NOTE | 2021-05-26 19:35 | NUR ---
RECEIVED PATIENT FROM AM NURSE FOR CONTINUITY OF CARE,PT IS STABLE ,NO DISTRESS NOTED, ALL SAFETY MEASURES IN PLACE.ON O2 AT 2L NC
[2021-05-26 20:00] VITALS: BP 115/68
--- NOTE | 2021-05-26 22:30 | NUR ---
PATIENT ASLEEP ,NO DISTRESS NOTED .DR PEDERSEN CALLED AND GAVE AN ORDER OF NPO AFTER MIDNIGHT PRIOR TO DEBRIDEMENT OF RAKA STUMP SCHEDULED AT 9 AM .
[2021-05-26] MEDS: MENTHOL/ZINC OXIDE 113 GM TUBE TP SCH (23:05)
[2021-05-27] VITALS: BP 123/56
--- NOTE | 2021-05-27 02:00 | NUR ---
PT SLEEPING ,NO DISTRESS NOTED,ALL SAFETY MEASURES IN PLACE
[2021-05-27 02:52] LABS: PROTHROMBIN TIME 10.2 secs (10.8-13.4)
[2021-05-27 04:00] VITALS: BP 114/62
--- NOTE | 2021-05-27 04:00 | NUR ---
TURNED AND REPOSITIONED THE PATIENT, NO DISTRESS NOTED
[2021-05-27] MEDS: CEFEPIME 1,000 MG in DEXTROSE 5% 50 ML IV SCH ×2 (05:36→17:45)
--- NOTE | 2021-05-27 06:00 | NUR ---
CLEANED AND REPOSITIONED THE PATIENT,GETTING READY FOR THE PROCEDURE,NO S/SX OF DISTRESS NOTED
--- NOTE | 2021-05-27 07:30 | NUR ---
RECEIVED REPORT FROM PM SHIFT RN LINDA FOR CONTINUITY OF CARE. PT. COMFORTABLY SLEEPING IN THE BED, NO ACUTE DISTRESS OBSERVED.SAFETY MEASURES IN PLACE. PT. IS NPO FOR PROCEDURE TODAY (WOUND DEBRIDEMENT)CONSENT IS SIGNED. WILL FOLLOW UP AND CONTINUE TO MONITOR THE PT.
[2021-05-27 08:00] VITALS: BP 131/66
[2021-05-27] MEDS: FUROSEMIDE 40 MG/4 ML VIAL IVP SCH (08:30)
[2021-05-27] MEDS ORDERED: BUPIVACAINE MPF 0.25% 10 ML VIAL INJ ONE (08:45)
[2021-05-27] MEDS: ZINC SULF 220 MG CAP PO SCH (09:00)
[2021-05-27] MEDS: MENTHOL/ZINC OXIDE 113 GM TUBE TP SCH (09:00)
[2021-05-27] MEDS: DEXT 5% / NACL 0.45% 1,000 ML IV SCH ×2 (09:00→17:55)
--- NOTE | 2021-05-27 09:25 | NUR ---
SENT PT. TO OR FOR PROCEDURE. WOUND DEBRIDEMENT. VIA GURNEY. PICKED UP PT. BY OR NURSE. REPORT GIVEN. PT. STABLE,ALERT, AWAKE. NOT IN DISTRESS. WILL FOLLOW UP POST PROCEDURE ORDERERS
[2021-05-27] MEDS ORDERED: SEVOFLURANE 250 ML BTL INH ONE (09:30)
--- NOTE | 2021-05-27 10:04 | NUR ---
PATIENT HAS BEEN SCREENED AND CATEGORIZED HIGH NUTRITION RISK. PATIENT WILL BE SEEN WITHIN 1-2 DAYS OF ADMISSION. 05/27/21 RECEIVED CONSULT AND REFERRAL FOR PRESSURE INJURY LISANDRO GALINDO RD
--- NOTE | 2021-05-27 10:05 | NUR ---
WOUND CONSULT PENDING. PT. IS AT OR FOR DEBRIDEMENT. SUNNI IN PT. ROOM. POC DISCUSSED WITH SUNNI RELATED TO DELAY WOUND HEALING AND HIGH RISK OF FURTHER SKIN BREAKS INCLUDING ALL COMORBIDITIES AND PT. NON-COMPLIANCE WITH PLAN OF CARE FROM WOUND CARE POINT OF VIEW. PER SHE VERBALIZES UNDERSTANDING AND SHE WILL ENCOURAGE PT. TO PARTICIPATE CARES. PER SUNNI THAT SHE DOESN'T KNOW THE SACRAL WOUND BECOMES "THAT BIG." EXPLAINED TO HER THAT LAST ADMISSION 02/2021 THAT PT. ADMITTED WITH SACRAL INFECTED WOUND WITH DEBRIDEMENT. SUNNI REQUESTS TO SEE THE WOUND PHOTOS, EXPLAINED TO HER TO REQUEST MEDICAL RECORDS NEED TO CONTACT HIM. SHE VERBALIZES UNDERSTANDING.
[2021-05-27] MEDS ORDERED: ONDANSETRON 4 MG/2 ML VIAL IVP PRN (10:15)
[2021-05-27] MEDS ORDERED: NACL 0.9% 1,000 ML IV SCH (10:15)
--- NOTE | 2021-05-27 10:35 | NUR ---
PT. RETURNED TO THE UNIT AFTER PROCEDURE DONE IN OR BY DR. PEDERSEN. RECEIVED PT. IN BED. PROVIDE COFORTS AND AND ALL SAFETY MEASURES. REPORT RECEIVED. PT. STABLE, NO ACUTE DISTRESS NOTED. V/S WNL. NO ANY BLEEDING NOTED AT WOUND SITE. WILL CONTINUE TO MONITOR THE PT.
[2021-05-27 12:00] VITALS: BP 128/68
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
--- NOTE | 2021-05-27 12:45 | NUR ---
MADE ROUND. V/S CHECKED WNL. PT. COMFORTABLY SLEEPING. WITH NO ANY S/SX OF DISTRESS NOTED. NO S/SX OF PAIN NOTED. NO BLEEDING NOTED AT WOUND SITE. DRESSING DRY AND INTACT.ALL SAFETY MEASURES IN PLACE. WILL CONTINUE TO MONITOR THE PT.
[2021-05-27] MEDS ORDERED: NON ADHERENT DRESSING TP SCH (13:00)
--- NOTE | 2021-05-27 13:16 | NUR ---
05/27/21 RD INITIAL ASSESSMENT COMPLETED PLEASE REFER TO NUTRITION ASSESSMENT UNDER CARE ACTIVITY FOR ESTIMATED NUTRITIONAL NEEDS. 1. CONTINUE REGULAR DIET TOLERATED 2. RECOMMEND ENSURE BID AND LUCIO BID PER PROTOCOL 3. RD TO FOLLOW-UP 3-5 DAYS, MODERATE RISK LISANDRO GALINDO RD
[2021-05-27] MEDS: THERAHONEY GEL 42.5 GM TP SCH (14:00)
--- NOTE | 2021-05-27 14:53 | NUR ---
WOUND CARE EVALUATION NOTE: RIGHT AKA STUMP WOUND S/P DEBRIDEMENT, DRESSING DCI. MULTIPLE ECCHYMOSIS TO UPPER ARMS WITH THIN SKIN EASILY TO TORN. FOAM DRESSING IN PLACE FOR PROTECTION. FOREHEAD DRY ABRASIONS KATHRYN-WOUND SKIN IS DRY AND INTACT.PT. IS RESTING WELL, DENY OF PAIN. POC DISCUSSED WITH PRIMARY RN. INTEGUMENTARY: -RIGHT STUMP PENDING EVAL. S/P DEBRIDEMENT < 24 HRS DRESSING DCI -LEFT TROCHANTER PRESSURE INJURY UN-STAGEABLE 3.5X2CM 100% YELLOW SLOUGH TISSUE, MOIST, NO ODOR, KATHRYN-WOUND SKIN PALE CONTACT DERMATITIS, SKIN RED, RASHES NO PAIN. -SACRALCOCCYX WOUND [id number], WOUND BED 20% SOFT YELLOW SCATTERED SLOUGH TISSUE, 90% RED GRANULATING TISSUE,10% SOFT YELLOW SLOUGH TISSUE, UNDERMINING 12-6 OCLOCK WITH DEEPEST TO 6 O'CLOCK DIRECTION 3 CM, MODERATED AMOUNT SEROUS DRAINAGE, NO ODOR, WOUND EDGE FLAT, KATHRYN-WOUND SKIN NON-BLANCHABLE REDNESS WITH MOISTURE ASSOCIATED DERMATITIS -LEFT LE POSTERIOR ARTERIAL ULCER 4X6CM SUPERFICIAL DEPTH, IRREGULAR SHAPE WOUND BED 100% PINK, MOIST, NO ODOR, KATHRYN WOUND SKIN THIN HEALED SCARS AND EASILY TO TORN. -MID BACK SPINAL AREA STAGE 2 PRESSURE INJURY 3X1X0.1CM WOUND BED PINK, MOIST, NO ODOR, KATHRYN-WOUND SKIN THIN AND EASILY TO TORN, CONTACT DERMATITIS, SKIN RED, RASHES NO PAIN. -MOISTURE ASSOCIATED DERMATITIS TO BILATERAL GROINS, SCROTAL AND BUTTOCKS SKIN RED AND MOIST. RECOMMENDATIONS: -CLEANSE BILATERAL GROINS, SCROTAL AND BUTTOCKS WITH SOAP AND WATER, PAT DRY, APPLY CALMOSEPTINE CREAM BID AND PRN IF SOILING -CLEANSE RIGHT STUMP WOUND, LEFT HIP, SACRALCOCCYX AND LEFT LOWER LEG WITH NS, PAT DRY APPLY THERAHOMEY GEL TO WOUND BED AND CALMOSEPTINE CR. TO KATHRYN-WOUND SKIN, COVER WITH DRY DRESSING QD AND PRN IF SOILING -APPLY FOAM DRESSING TO ALL BONY AREAS SUCH SHOULDERS, SCAPULARS, ELBOWS, KNEES, ANKLES, SPIN Q3 DAYS AND PRN IF SOILING -PRESSURE REDISTRIBUTION SURFACE THERAPY -TURN AND REPOSITION PATIENT Q2H, KEEP PT. DRY AND CLEAN -HEEL PROTECTOR TO LEFT HEEL, ELEVATED RIGHT STUMP -ASSESS AND MONITOR SKIN CONDITION DURING POSITION CHANGE, PLEASE PAY ATTENTION TO RIGHT BUTTOCKS, OFF LOADING WITH PILLOWS -OFFLOAD BILATERAL RIGHT STUMP AND LEFT HEEL BY PLACING PILLOWS UNDER CALVES AT ALL TIMES, UNLESS OTHERWISE CONTRAINDICATED -PLEASE FOLLOW RD RECOMMENDATIONS
[2021-05-27 16:00] VITALS: BP 105/60
--- NOTE | 2021-05-27 16:45 | NUR ---
MADE ROUND . PT. COMFORTABLY SLEEPING. NO NOTED DISTRESS. SAFETY MEASURES IN PLACE. NO S/SX OF PAIN NOTED. WILL CONTINUE TO MONITOR THE PT.
--- NOTE | 2021-05-27 18:33 | NUR ---
ROUNDED TO THE PT'S ROOM. PT. ALERT, AWAKE. STABLE. NO DISTRESS NOTED. ALL SAFETY MEASURES IN PLACE. WILL CONTINUE TO MONITOR THE PT.
--- NOTE | 2021-05-27 19:06 | NUR ---
ENDORSED REPORT TO THE PM SHIFT RN FOR CONTINUITY OF CARE . PT. STABLE.
--- NOTE | 2021-05-27 19:15 | NUR ---
RECEIVED PT FROM AM NURSE FOR CONTINUITY OF CARE,PT STABLE,NO DISTRESS NOTED
[2021-05-27 20:00] VITALS: BP 114/58
[2021-05-27] MEDS: HYDROcodone/APAP 5/325 MG 1 TAB TAB PO PRN (21:37)
--- NOTE | 2021-05-27 22:00 | NUR ---
PATIENT ASLEEP,BREATHING EVEN AND UNLABORED, ALL SAFETY MEASURES IN PLACE,
[2021-05-28] VITALS: BP 116/62
--- NOTE | 2021-05-28 | NUR ---
PATIRNT AWAKE ,NO S/SX OF DISTRESS NOTED, ALL SAFETY MEASURES IN PLACE
--- NOTE | 2021-05-28 02:00 | NUR ---
PT SLEEPING AT THIS TIME,NO DISTRESS NOTED,ALL SAFETY MEASURES IN PLACE
[2021-05-28 04:00] VITALS: BP 110/59
--- NOTE | 2021-05-28 04:00 | NUR ---
CHANGED IV SITE TO SHAREE G 24, INTACT AND PATENT
[2021-05-28] MEDS: MENTHOL/ZINC OXIDE 113 GM TUBE TP SCH ×2 (04:45→13:41)
[2021-05-28] MEDS: CEFEPIME 1,000 MG in DEXTROSE 5% 50 ML IV SCH ×2 (05:47→17:29)
--- NOTE | 2021-05-28 06:00 | NUR ---
PATIENT SLEEPING,BREATHING EVEN AND UNLABORED .NO DISTRESS NOTED.ALL SAFETY MEASURES IN OLACE
--- NOTE | 2021-05-28 07:23 | NUR ---
RECEIVED REPORT FROM PM SHIFT RN FOR CONTINUITY OF CARE. PT. RESTING WITHOUT S/SX OF ANY DISTRESS NOTED. SAFETY MEASURES IN PLACE. WILL CONTINUE TO MONITOR THE PT.
--- NOTE | 2021-05-28 07:53 | NUR ---
AWAKE AND ALERT VERBALLY RESPONSIVE RECEIVED ON SUPPLEMENTAL OXYGEN AT 4 LPM VIA NC SATURATION 98% C/O SOB AND NASAL DRYNESS WITH SUPPLEMENT OXYGEN USE HHN PRN THERAPY GIVEN A THIS TIME POST HHN THERAPY TITRATED FIO2 TO 3 LPM ADDED HUMIDIFIER
[2021-05-28 08:00] VITALS: BP 129/70
[2021-05-28] MEDS: ALBUTEROL SULFATE/IPRATROPIU 3 ML SOL IH PRN (08:06)
[2021-05-28] MEDS: ZINC SULF 220 MG CAP PO SCH (08:45)
[2021-05-28] MEDS: FUROSEMIDE 40 MG/4 ML VIAL IVP SCH (08:45)
--- NOTE | 2021-05-28 09:03 | NUR ---
DC PLANNING: FULL SCOPE M/DONOVAN NOW IN PLACE, CM FAXED CLINICAL PACKETS TO [facility] AND [facility]. FARA SPOKE WITH THE PATIENT AT BEDSIDE TO EXPLAIN THE PLAN FOR SNF PLACEMENT FOR WOUND CARE AND P.T., ALSO TRIED TO CALL HIS SUNNI, NO ANSWER, VM FULL. FARA WILL FOLLOW. Addendum: 05/28/21 at 1307 by Maryam Chowdhury CM DC PLANNING: FARA SPOKE WITH PATIENTS SUNNI BY PHONE EARLIER TODAY, ENDORSED NEED FOR SNF FOR WOUND CARE AND P.T.,SUNNI STATES SHE WILL SPEAK WITH THE PATIENT ABOUT SNF PLACEMENT. PATIENT DECLINED BY [facility], [facility] HAS NO BEDS TODAY. FARA FAXED TO [facility] AND [facility] WILL, WAITING TO HEAR FROM OTHER FACILITIES. FARA WILL FOLLOW. Addendum: 05/29/21 at 0847 by Maryam Chowdhury CM DC PLANNING: CM FOLLOWED UP WITH [facility], [facility] AND [facility] FOR PLACEMENT. [facility] DOES NOT HAVE BEDS, AND [facility] AND [facility] ARE STILL REVIEWING HIM. CM WILL FOLLOW. Addendum: 05/29/21 at 1223 by Maryam Chowdhury CM DC PLANNING: CM SPOKE WITH KELLY FROM [facility], PATIENT STILL UNDER REVIEW BY YESSICA, FACILITY IS ALSO MOVING ROOMS BECAUSE OF NEW CDC GUIDELINES REGARDING NEW PATIENT ISOLATION. NO RESPONSE YET FROM [facility] REGARDING ACCEPTANCE. CM WILL FOLLOW. Addendum: 05/29/21 at 1640 by Fadia Cabezas RN DC PLANNING: [facility] SPOKE WITH MICHAEL [facility] ACCEPTED PATIENT AND WILL HAVE AVAILABLE BED TOMORROW. CM TO FOLLOW Addendum: 05/30/21 at 1203 by Fadia Cabezas RN DC PLANNING: PATIENT GOT ACCEPTED AT [facility] ([facility]) CAN GO TO ROOM 222A # TO GIVE REPORT [phone] [facility] [id number] ARRANGED TRANSPORT WITH [facility] TIME BETWEEN 1-2 PM NOTIFIED FANG TEAGAN CHAUDHARI TO FOLLOW
--- NOTE | 2021-05-28 09:36 | NUR ---
PT. ALERT,AWAKE. STABLE. NOT IN DISTRESS. ADMINISTERED SCHEDULED MEDICATION. PT. TOLERATED WELL. WILL CONTINUE TO MONITOR THE PT.
[2021-05-28 12:00] VITALS: BP 114/56
--- NOTE | 2021-05-28 12:33 | NUR ---
PT. COMFORTABLY SLEEPING IN THE BED.NO ANY ACUTE DISTRESS NOTED. SAFETY MEASURES IN PLACE. CALL LIGHT WITHIN REACH. WILL CONTINUE TO MONITOR THE PT.
[2021-05-28 13:28] LABS: BASOPHILS # (AUTO) 0.1 K/uL (0.00-0.22); EOSINOPHILS # (AUTO) 0.3 K/uL (0-0.4); HEMATOCRIT 24.1 % (36-52); LYMPHOCYTES # (AUTO) 1.1 K/uL (2.0-11.5); MEAN CORPUSCULAR HEMOGLOBIN 30 pg (27-31); MEAN CORPUSCULAR HGB CONC 33 g/dL (33-37); MEAN CORPUSCULAR VOLUME 89.5 fL (80-94); MONOCYTES # (AUTO) 1.1 K/uL (0.8-1.0); MONOCYTES % (AUTO) 10.9 % (1.7-9.3); NEUTROPHILS # (AUTO) 7.3 K/uL (1.8-7.7); NEUTROPHILS % (AUTO) 74.1 % (42.2-75.2); PLATELET COUNT (AUTO) 627 K/uL (140-450); RED BLOOD CELL COUNT(AUTO) 2.69 MIL/uL (4.20-6.10); WHITE BLOOD COUNT (AUTO) 9.9 K/uL (4.8-10.8)
[2021-05-28] MEDS: THERAHONEY GEL 42.5 GM TP SCH (13:41)
[2021-05-28 14:14] LABS: ANION GAP 7.1 (8-16); CARBON DIOXIDE 33.3 mmol/L (21-32); CREATININE 0.4 mg/dL (0.6-1.3); POTASSIUM 4.4 mmol/L (3.5-5.1)
[2021-05-28 14:18] LABS: MAGNESIUM 1.9 mg/dL (1.8-2.4)
--- NOTE | 2021-05-28 15:00 | NUR ---
PT. COMFORTABLY SLEEPING IN THE BED. NOS/SX OF DISTRESS NOTED.ALL SAFETY MEASURES IN PLACE. WILL CONTINUE TO MONITOR THE PT.
[2021-05-28 16:00] VITALS: BP 109/54
[2021-05-28] MEDS: HYDROcodone/APAP 5/325 MG 1 TAB TAB PO PRN (16:53)
--- NOTE | 2021-05-28 17:00 | NUR ---
ANSWERED CALL LIGHT. PT. C/O BACK PAIN. 10/06. MEDICATED WITH NORCO ORDER. WILL CONTINUE TO MONITOR AND REASSESS. SAFETY MEASURES IN PLACE AND CALL LIGHT WITHIN REACH
[2021-05-28 20:00] VITALS: BP 105/52
[2021-05-29] VITALS: BP 144/51
[2021-05-29] MEDS: HYDROcodone/APAP 5/325 MG 1 TAB TAB PO PRN ×3 (00:25→20:11)
[2021-05-29] MEDS: DEXT 5% / NACL 0.45% 1,000 ML IV SCH ×2 (00:25→21:00)
[2021-05-29] MEDS: MENTHOL/ZINC OXIDE 113 GM TUBE TP SCH ×2 (00:25→13:00)
[2021-05-29 04:00] VITALS: BP 125/57
[2021-05-29] MEDS: CEFEPIME 1,000 MG in DEXTROSE 5% 50 ML IV SCH ×2 (05:35→17:44)
[2021-05-29 06:42] LABS: BASOPHILS # (AUTO) 0.1 K/uL (0.00-0.22); BASOPHILS % (AUTO) 0.9 % (0.0-2.0); EOSINOPHILS # (AUTO) 0.4 K/uL (0-0.4); EOSINOPHILS % (AUTO) 4.9 % (0.0-4.0); HEMOGLOBIN 7.8 g/dL (12.0-18.0); LYMPHOCYTES # (AUTO) 1.5 K/uL (2.0-11.5); LYMPHOCYTES % (AUTO) 18.3 % (20.5-51.1); MEAN CORPUSCULAR HEMOGLOBIN 29 pg (27-31); MEAN CORPUSCULAR HGB CONC 33 g/dL (33-37); MEAN CORPUSCULAR VOLUME 89.4 fL (80-94); MONOCYTES # (AUTO) 1.3 K/uL (0.8-1.0); MONOCYTES % (AUTO) 15.3 % (1.7-9.3); NEUTROPHILS # (AUTO) 4.9 K/uL (1.8-7.7); NEUTROPHILS % (AUTO) 60.6 % (42.2-75.2); PLATELET COUNT (AUTO) 583 K/uL (140-450); RED BLOOD CELL COUNT(AUTO) 2.68 MIL/uL (4.20-6.10); RED CELL DISTRIBUTION WIDTH 15.8 % (11.6-13.7); WHITE BLOOD COUNT (AUTO) 8.2 K/uL (4.8-10.8)
[2021-05-29 06:54] LABS: ANION GAP 4.4 (8-16); CARBON DIOXIDE 35.4 mmol/L (21-32); CREATININE 0.3 mg/dL (0.6-1.3); POTASSIUM 4.8 mmol/L (3.5-5.1)
--- NOTE | 2021-05-29 07:15 | NUR ---
RECEIVED REPORT FROM SYNTHETIC CLOTH BINDING CUTTER NURSE FOR CONTINUITY OF CARE. PT IN BED AT THIS TIME, WITH TELEVISION ON. RESPIRATIONS ARE EVEN AND UNLABORED, PT ON 2L 02 VIA NC. PT IS NONCOMPLIANT WITH 02. CONTINUES TO TAKE IT OFF. NO SIGNS OF DISTRESS NOTED. PT YELLING AND CALLING OUT. RE-ORIENTATED PT. PT SKIN IS NON-INTACT, WOUNDS NOTED TO SACRUM, L HIP, AND R LEG WHERE PT HAS R AKA. NO COMPLAINTS OF PAIN OR DISCOMFORT NOTED AT THIS TIME. CALL LIGHT WITHIN REACH. ALL SAFETY MEASURES IN PLACE. WILL CONTINUE TO MONITOR.
[2021-05-29 08:00] VITALS: BP 132/71
--- NOTE | 2021-05-29 08:00 | NUR ---
Patient's Plan of Care was discussed and reviewed with CARPENTER REFRIGERATOR: CHRISTINA MENDOZA
[2021-05-29] MEDS ORDERED: FOAM DRESSING TP SCH (09:00)
[2021-05-29] MEDS: ZINC SULF 220 MG CAP PO SCH (09:33)
--- NOTE | 2021-05-29 09:35 | NUR ---
ADMINISTERED PO MEDICATIONS. CHANGED FOAM DRESSINGS. WILL CONTINUE TO MONITOR.
[2021-05-29] MEDS: FUROSEMIDE 40 MG/4 ML VIAL IVP SCH (09:42)
[2021-05-29] MEDS: ALBUTEROL SULFATE/IPRATROPIU 3 ML SOL IH PRN (10:49)
--- NOTE | 2021-05-29 11:55 | NUR ---
ASSESSED RIGHT STUMP SURGICAL WOUND WITH ANOTHER RN EMY: RIGHT AKA SURGICAL WOUND TOTAL WIDTH OF SURGICAL WOUND IS 15 CM WITH 15 KATELYN AND MULTIPLE SUTURES IN PLACE AND SECURED FOR 12CM IN WIDTH PLUS S/P DEBRIDEMENT TO MEDIAL ASPECT OF SURGICAL WOUND [id number], WOUND BED 100% RED GRANULATION TISSUE, SMALL AMOUNT SEROUS DRAINAGE, NO ODOR, WOUND EDGE FLAT AND KATHRYN-WOUND SKIN DRY INTACT, PAIN 0/10., STUMP WOUND DRESSING CHANGED PER ORDER, PT. TOLERATE PROCEDURES WELL. POC DISCUSSED WITH PRIMARY NURSE AND PHYSICAL THERAPIES. PT. WITH WC AT BED SIDE WITH NO GEL CUSHION. DOES NOT RECOMMEND SITTING ON THE WC WITH NO GEL CUSHION, PER PT , SHE WILL HAVE PT. SIT UP AT THE EDGE OF BED WHERE THE AIR MATTRESS IS ON.
[2021-05-29 12:00] VITALS: BP 125/62
--- NOTE | 2021-05-29 12:25 | NUR ---
DID ROUNDS WITH PT. PT YELLING AT THIS TIME. ASKED PT WHAT IS WRONG, PT STATES "YOUR SUPPOSED TO BE DOING YOUR JOB AND STAY HERE. THATS WHAT I PAY YOU FOR". RE-ORIENTED PT. WILL CONTINUE TO MONITOR.
[2021-05-29] MEDS: THERAHONEY GEL 42.5 GM TP SCH (13:00)
[2021-05-29 16:00] VITALS: BP 110/55
--- NOTE | 2021-05-29 16:05 | NUR ---
ASSISTED WITH CHANGING AND REPOSITIONING PT. PT TRYING TO PULL AT IV LINES AT THIS TIME. PT PULLED OFF CONDOM CATHETER. RE-ORIENTED PT. WILL CONTINUE TO MONITOR.
--- NOTE | 2021-05-29 17:46 | NUR ---
PATIENT REFUSED ANTIBIOTIC IVPB. EDUCATION GIVEN, PATIENT VERBALIZED UNDERSTANDING. PATIENT STILL REFUSED.
--- NOTE | 2021-05-29 19:44 | NUR ---
ENDORSED PT TO ROCK CRUSHING MACHINE OPERATOR NURSE FOR CONTINUITY OF CARE. ALL NEEDS MET THROUGHOUT SHIFT. PT IS STABLE.
--- NOTE | 2021-05-29 20:42 | NUR ---
Pt had pulled out RA SL and refuses for it to be restarted. Continuing w ABx Tx was explained to pt - pt refused. Pt's spouse at bedside.
--- NOTE | 2021-05-30 00:08 | NUR ---
Pt's left two small bags of M&Ms at [facility] for pt Pt yelling "HELP. HELP ME. LET ME OUT." Pt's needs include being unable to find TV/Call Light control box, being turned (very slightly), etc. After addressing needs of pt, pt begins same routine again, and again. No IV access as pt refuses.
[2021-05-30] MEDS: MENTHOL/ZINC OXIDE 113 GM TUBE TP SCH (01:00)
[2021-05-30] MEDS: HYDROcodone/APAP 5/325 MG 1 TAB TAB PO PRN (02:23)
--- NOTE | 2021-05-30 05:28 | NUR ---
pt given incontinence care this a.m. pt had a condom catheteron but decided to pulll
[2021-05-30] MEDS: CEFEPIME 1,000 MG in DEXTROSE 5% 50 ML IV SCH (06:00)
[2021-05-30 07:16] LABS: BASOPHILS # (AUTO) 0.1 K/uL (0.00-0.22); BASOPHILS % (AUTO) 0.9 % (0.0-2.0); EOSINOPHILS # (AUTO) 0.3 K/uL (0-0.4); EOSINOPHILS % (AUTO) 3.2 % (0.0-4.0); HEMATOCRIT 24.4 % (36-52); LYMPHOCYTES # (AUTO) 1.6 K/uL (2.0-11.5); LYMPHOCYTES % (AUTO) 14.8 % (20.5-51.1); MEAN CORPUSCULAR HEMOGLOBIN 29 pg (27-31); MEAN CORPUSCULAR HGB CONC 33 g/dL (33-37); MEAN CORPUSCULAR VOLUME 88.5 fL (80-94); MONOCYTES # (AUTO) 1.5 K/uL (0.8-1.0); MONOCYTES % (AUTO) 13.5 % (1.7-9.3); NEUTROPHILS # (AUTO) 7.3 K/uL (1.8-7.7); NEUTROPHILS % (AUTO) 67.6 % (42.2-75.2); PLATELET COUNT (AUTO) 627 K/uL (140-450); RED BLOOD CELL COUNT(AUTO) 2.76 MIL/uL (4.20-6.10); RED CELL DISTRIBUTION WIDTH 15.9 % (11.6-13.7); WHITE BLOOD COUNT (AUTO) 10.8 K/uL (4.8-10.8)
[2021-05-30 07:31] LABS: ANION GAP 7.5 (8-16); CARBON DIOXIDE 33.3 mmol/L (21-32); CREATININE 0.3 mg/dL (0.6-1.3); POTASSIUM 4.8 mmol/L (3.5-5.1)
[2021-05-30 08:00] VITALS: BP 121/69
--- NOTE | 2021-05-30 08:00 | NUR ---
Received patient from night RN, patient is AOx2-3, periods of confusion and anxiety. Sinus rhythm/sinus tachy, respirations even and unlabored. Denies pain at this time. Multiple skin issues noted. Tolerated breakfast well, no nausea/vomiting. Will continue to monitor.
[2021-05-30] MEDS: ALBUTEROL SULFATE/IPRATROPIU 3 ML SOL IH PRN (08:13)
[2021-05-30] MEDS: ZINC SULF 220 MG CAP PO SCH (09:00)
[2021-05-30] MEDS: FUROSEMIDE 40 MG/4 ML VIAL IVP SCH (09:00)
[2021-05-30] MEDS ORDERED: FURO-572 PO (10:11)
[2021-05-30] MEDS ORDERED: FERR325E14 PO (10:11)
--- NOTE | 2021-05-30 10:58 | NUR ---
DC PLANNING SW SPOKE TO PATIENT'S SUNNI ABOUT PATIENT'S DISCHARGE, MEDICAL NEEDS, MD. RECOMMENDATIONS TO SNF. SW EXPLAINED TO PATIENT'S ABOUT SNF CARE, HAVING PT AND WOUND CARE WELL 24 HOURS CARE. SW TALK TO PATIENT'S ABOUT FOLLOWING UP WITH [facility] AND RECOMMENDATIONS TO FOLLOW UP WITH [facility] ON GETTING IHSS AND GETTING READY FOR PATIENT WHEN HE IS DC FROM SNF. PATIENT'S UNDERSTOOD AND STATED THAT WILL BE FOLLOWING UP AND ENDED THE CALL.
--- NOTE | 2021-05-30 12:00 | NUR ---
Report given to TEAGAN Lilly at [facility]. Patient will be transferred to room 222
--- NOTE | 2021-05-30 13:00 | NUR ---
Photos taken of multiple wound, dressing changes done. Tolerated well. Ambulance at bedside to transfer patient to [facility]. [place], , at bedside to sign paperwork. All belongings sent with patient.
== END 2021-05-30 13:51 | DRG 720 ==
LOC: MED 03:57 → MMU 09:35 → MTU 13:14
PROVIDERS: ADMIT Student in an Organized Health Care Education/Training Program; ATTEND Student in an Organized Health Care Education/Training Program
PROC: 0JBN0ZZ Excision of Right Lower Leg Subcutaneous Tissue and Fascia, Open Approach (ICD-10-PCS; principal; 2021-05-27 09:00)
DX: A41.9 Sepsis, unspecified organism (principal); E43 Unspecified severe protein-calorie malnutrition; L89.154 Pressure ulcer of sacral region, stage 4; J18.9 Pneumonia, unspecified organism; I96 Gangrene, not elsewhere classified; E87.1 Hypo-osmolality and hyponatremia; J44.0 Chronic obstructive pulmonary disease with (acute) lower respiratory infection; R65.20 Severe sepsis without septic shock; F19.10 Other psychoactive substance abuse, uncomplicated; Y95 Nosocomial condition; Z20.822 Contact with and (suspected) exposure to COVID-19; I10 Essential (primary) hypertension; R06.03 Acute respiratory distress; D64.9 Anemia, unspecified; R74.01 Elevation of levels of liver transaminase levels; F03.90 Unspecified dementia, unspecified severity, without behavioral disturbance, psychotic disturbance, mood disturbance, and anxiety; T87.43 Infection of amputation stump, right lower extremity; L03.90 Cellulitis, unspecified; Y83.5 Amputation of limb(s) as the cause of abnormal reaction of the patient, or of later complication, without mention of misadventure at the time of the procedure; Z86.16 Personal history of COVID-19; Z79.899 Other long term (current) drug therapy; Z79.2 Long term (current) use of antibiotics; Z91.14 Patient's other noncompliance with medication regimen; Z68.1 Body mass index [BMI] 19.9 or less, adult; Y92.89 Other specified places as the place of occurrence of the external cause
CPT/HCPCS: 36415; 70450; 71045; 72125; 80048; 80053; 83605; 83690; 83735; 84100; 85025; 85610; 85730; 86140; 87040; 87070; 87075; 87081; 87186; 87205; 93005; 94640; 96365; 96375; 97110; 97112; 97163-GP; 97530; 99291; J0692; J1940; J2270; J2405; J3490; J7030; J7060